=== PATIENT | female | born 1975 | race Two or more races ===

== ENCOUNTER 2020-09-02 13:07 | Outpatient (REF) | payer OTHER, SELFPAY | END 2020-09-02 13:08 | disposition home or self-care (01) | LOC: HO.LAB 13:07 | PROVIDERS: Visit Provider Internal Medicine | DX: Z20.822 Contact with and (suspected) exposure to COVID-19 (principal) | CPT/HCPCS: 36415; C9803; U0003; U0005 ==

== ENCOUNTER 2020-10-01 13:18 | Outpatient (REF) | payer OTHER, SELFPAY | END 2020-10-01 13:19 | disposition home or self-care (01) | LOC: HO.LAB 13:18 | PROVIDERS: Visit Provider Internal Medicine | DX: Z20.822 Contact with and (suspected) exposure to COVID-19 (principal) | CPT/HCPCS: 36415; C9803; U0003; U0005 ==

== ENCOUNTER 2020-11-03 14:41 | Outpatient (REF) | payer OTHER, SELFPAY ==
[2020-11-03 15:00] LABS: COVID-19 Test Negative (Negative)
== END 2020-11-03 14:42 | disposition home or self-care (01) ==
LOC: HO.LAB 14:41
PROVIDERS: Visit Provider Internal Medicine
DX: Z20.822 Contact with and (suspected) exposure to COVID-19 (principal)
CPT/HCPCS: 36415; 87635; C9803

== ENCOUNTER 2020-11-18 14:53 | Outpatient (REF) | payer OTHER, SELFPAY | END 2020-11-18 14:54 | disposition home or self-care (01) | LOC: HO.LAB 14:53 | PROVIDERS: Visit Provider Internal Medicine | DX: Z20.822 Contact with and (suspected) exposure to COVID-19 (principal) | CPT/HCPCS: C9803; U0003; U0005 ==

== ENCOUNTER 2022-07-11 16:25 | Emergency (ER) | payer MEDICAID, SELFPAY ==
--- NOTE | 2022-07-11 16:38 | ED.ABDPAIN ---
HPI - Abdominal Pain General Chief Complaint: Abdominal Pain Stated Complaint: abd pain,rectal bleeding Related Data Allergies Allergy/AdvReac Type Severity Reaction Status Date / Time No Known Allergies Allergy Unverified 04/09/20 19:45 [facility] Social History Social History Advance Directives: No Advance Directives Information Provided: No Physical Exam ED Vital Signs: Vital Signs - 24 hr 07/11/22 16:41 Temperature 98.2 F Pulse Rate 93 Respiratory Rate 18 Blood Pressure 127/83 Pulse Oximetry 98 Oxygen Delivery Method Room Air BMI result Body Mass Index 27.0 Course Course Course Narrative: RME: Patient is a 56-year-old female with no reported past medical history who presents to emergency department for diffuse abdominal pain and rectal bleeding, described as bright red and a large amount that she noticed after having a bowel movement. Denies fevers, chills, dizziness, chest pain, shortness of breath, dysuria, urinary frequency, nausea, vomiting. She is overall well-appearing, no apparent distress. With mild tenderness throughout upon palpation, does not appear consistent with acute abdomen. Plan: Labs, urinalysis Medical Decision Making Lab Data Result Diagrams: 07/11/22 22:02 07/11/22 22:02 Labs: Lab Results 07/11/22 07/11/22 07/11/22 Range/Units 17:20 22:02 22:02 WBC 12.0 H (4.8-10.8) X10*3/uL RBC 4.67 (4.20-5.50) X10*6/uL Hgb 13.1 (12.0-16.0) g/dl Hct 40.1 (37.0-47.0) % MCV 85.9 (80.0-98.0) fL MCH 28.1 (27.0-33.0) pg MCHC 32.7 (31.0-35.0) g/dl RDW 12.8 (11.0-16.0) % Plt Count 286 (160-400) X10*3/uL MPV 10.5 (9.4-12.3) fL Immature Gran % (Auto) 0.2 (0.0-0.4) % Neut % (Auto) 82.4 H (45-73) % Lymph % (Auto) 12.0 L (20-40) % [facility] % (Auto) 5.1 (2-11) % Eos % (Auto) 0.1 (0-4) % Baso % (Auto) 0.2 (0-2) % Lymph # (Auto) 1.4 (1.2-4.9) X10*3/uL [facility] # (Auto) 0.6 (0.1-1.2) X10*3/uL Eos # (Auto) 0.0 (0.0-0.4) X10*3/uL Baso # (Auto) 0.0 (0.0-0.2) X10*3/uL Abs Immat Gran (auto) 0.03 (0.00-0.03) X10*3/uL Absolute Neuts (auto) 9.9 H (2.0-8.3) x10*3/uL Absolute Nucleated RBC 0.000 (0.0-0.012) X10*3/uL Nucleated RBC % (auto) 0.0 (0.0-0.2) /100WBC Sodium 141 (135-145) mmol/L Potassium 3.8 (3.3-5.1) mmol/L Chloride 105 (96-108) mmol/L Carbon Dioxide 27 (22-29) mmol/L Anion Gap 13 (12-20) BUN 12 (9-16) mg/dL Creatinine 0.74 (0.5-1.4) mg/dL Estim Creat Clear Calc 73.2 Estimated GFR > 60 Random Glucose 146 H (60-115) mg/dL Calcium 8.8 (8.4-10.2) mg/dL Total Bilirubin 0.2 (0.0-1.0) mg/dL AST 17 (5-31) U/L ALT 11 (0-31) U/L Alkaline Phosphatase 60 (39-117) U/L Total Protein 7.2 (6.5-8.0) g/dL Albumin 4.1 (3.5-5.0) g/dL Lipase 23 (8-78) U/L Urine Color Yellow Urine Appearance Clear Urine pH 5.0 (5.0-9.0) Ur Specific Butner 1.020 (1.005-1.025) Urine Protein Negative (Neg-Trace) mg/dL Urine Glucose (UA) Negative (Negative) mg/dL Urine Ketones Negative (Negative) mg/dL Urine Blood Moderate (2+) H (Negative) Urine Nitrite Negative (Negative) Ur Leukocyte Esterase Negative (Negative) Urine RBC 3-5 H (0-2) /HPF Urine WBC 0-5 (0-5) /HPF Ur Squamous Epith Cells 3-5 (0-2) /HPF Urine Bacteria None Seen (None Seen) Hyaline Casts 0-2 (0-2) /LPF Discharge Plan Discharge Clinical Impression: Abdominal pain Patient Disposition: Elopement Discharge Date/Time: 07/11/22 22:12
[2022-07-11 16:41] VITALS: BP 127/83; PULSE 93; RESP 18; TEMP 36.8; O2SAT 98; BMI 27.0
[2022-07-11 17:32] LABS: Appearance Urine Clear; Color Urine Yellow; Glucose Urine UA Negative (Negative); Leukocyte Esterase Urine Negative (Negative); Nitrite Urine Negative (Negative); UMIC TRIGGER UACC YES; Urine Blood Moderate (2+) (Negative); Urine Ketones Negative (Negative); Urine Protein Negative (Neg-Trace)
[2022-07-11 17:42] LABS: Bacteria Urine None Seen (None Seen); Hyaline Casts Urine 0-2 /LPF (0-2); WBC Urine 0-5 /HPF (0-5)
[2022-07-11 22:09] LABS: Basophils Percent Auto 0.2 % (0-2); Eosinophils Percent Auto 0.1 % (0-4); Hematocrit 40.1 % (37.0-47.0); Hemoglobin 13.1 g/dl (12.0-16.0); Imm Gran Abs Auto 0.03 X10*3/uL (0.00-0.03); Imm Gran Pct Auto 0.2 % (0.0-0.4); Lymphocytes Absolute Auto 1.4 X10*3/uL (1.2-4.9); Mean Corpuscular HGB Conc 32.7 g/dl (31.0-35.0); Mean Corpuscular Hemoglobin 28.1 pg (27.0-33.0); Mean Corpuscular Volume 85.9 fL (80.0-98.0); Mean Platelet Volume 10.5 fL (9.4-12.3); Monocytes Absolute Auto 0.6 X10*3/uL (0.1-1.2); Monocytes Percent Auto 5.1 % (2-11); Neutrophils Absolute Auto 9.9 x10*3/uL (2.0-8.3); Neutrophils Percent Auto 82.4 % (45-73); Platelet Count 286 X10*3/uL (160-400); Red Blood Count 4.67 X10*6/uL (4.20-5.50); Red Cell Distribution Width 12.8 % (11.0-16.0)
[2022-07-11 22:10] LABS: MANUAL DIFF FLAG NO
[2022-07-11 22:41] LABS: Alanine Aminotransferase 11 U/L (0-31); Albumin Level 4.1 g/dL (3.5-5.0); Alkaline Phosphatase 60 U/L (39-117); Anion Gap 13 (12-20); Aspartate Amino Transferase 17 U/L (5-31); Bilirubin Total 0.2 mg/dL (0.0-1.0); Blood Urea Nitrogen 12 mg/dL (9-16); Calcium 8.8 mg/dL (8.4-10.2); Carbon Dioxide 27 mmol/L (22-29); Chloride 105 mmol/L (96-108); Creatinine Clr Calc Pharmacy 73.2; Estimated Glomerular Filt Rate > 60; Glucose Random 146 mg/dL (60-115); Lipase 23 U/L (8-78); Potassium 3.8 mmol/L (3.3-5.1); Sodium 141 mmol/L (135-145); Total Protein 7.2 g/dL (6.5-8.0)
== END 2022-07-11 22:12 | disposition left against medical advice (07) ==
LOC: HO.ED 22:11
PROVIDERS: Nurse Practitioner Family; Emergency Provider Internal Medicine
DX: R10.13 Epigastric pain (principal); Z79.899 Other long term (current) drug therapy
CPT/HCPCS: 36415; 80053; 81001; 83690; 85025; 99281; 99283

== ENCOUNTER 2023-07-26 11:13 | Outpatient (REF) | payer MEDICAID, SELFPAY ==
[2023-07-26 13:54] LABS: Alanine Aminotransferase 11 U/L (0-31); Alkaline Phosphatase 74 U/L (39-117); Anion Gap 9 (12-20); Aspartate Amino Transferase 17 U/L (5-31); Bilirubin Total 0.1 mg/dL (0.0-1.0); Blood Urea Nitrogen 16 mg/dL (9-16); Calcium 9.9 mg/dL (8.4-10.2); Carbon Dioxide 28 mmol/L (22-29); Chloride 112 mmol/L (96-108); Cholesterol 187 mg/dL (<200); Estimated Glomerular Filt Rate > 60; Glucose Random 74 mg/dL (60-115); HDL Cholesterol 53 mg/dL (>40); LDL Cholesterol Calculated 98 mg/dL (<100); Potassium 4.3 mmol/L (3.3-5.1); Sodium 145 mmol/L (135-145); Total Protein 7.6 g/dL (6.5-8.0); Triglycerides 182 mg/dL (<150)
[2023-07-27 04:53] LABS: HBS Num1 0.15 mIU/mL (0-7.99); HBc Num1 0.06 S/CO (0.00-0.79); HBsAGNum1 0.22 S/CO (0.00-0.99); HIV AB/AG Nonreactive (Nonreactive); HIV Num 1 0.06 S/CO (0.00-0.99); Hepatitis B Core Antibody Nonreactive (Nonreactive); Hepatitis B Surface Antigen Negative (Negative); ~HepC Num1 0.08 S/CO (0.00-0.79); ~Hepatitis B Surface Antibody NONREACTIVE (Nonreactive); ~Hepatitis C Antibody Nonreactive (Nonreactive)
== END 2023-07-26 11:14 | disposition home or self-care (01) ==
LOC: HO.HHCL 11:13
PROVIDERS: Visit Provider Nurse Practitioner
DX: Z00.00 Encounter for general adult medical examination without abnormal findings (principal); E66.3 Overweight
CPT/HCPCS: 36415; 80053; 80061; 86704; 86706; 86803; 87340; 87389

== ENCOUNTER → 2023-07-26 15:30 | Outpatient (BNV) | payer MEDICAID, SELFPAY | PROVIDERS: PCP Nurse Practitioner; Visit Provider Radiology Diagnostic Radiology | DX: Z12.31 Encounter for screening mammogram for malignant neoplasm of breast (principal) | CPT/HCPCS: 77063; 77067 ==

== ENCOUNTER 2023-07-26 15:36 | Outpatient (REF) | payer MEDICAID, SELFPAY ==
--- NOTE | ~2023-07-26 | MM_ITS ---
EXAMINATION: MM SCREENING DIGITAL BREAST TOMOSYNTHESIS, BILATERAL CLINICAL INFORMATION: Screening. Asymptomatic. COMPARISON: Mammography: There are no prior mammograms available for comparison. TECHNIQUE: Digital breast tomosynthesis is performed in both the craniocaudal and mediolateral oblique views along with computer-aided detection (CAD). Synthesized 2D images are generated from the tomosynthesis. FINDINGS: There are scattered areas of fibroglandular density (ACR BI-RADS breast composition Category b). There is an anteriorly located, left focal asymmetry just inferomedial to the posterior nipple line. Further mammographic and targeted sonographic evaluation of this finding is advised. Grouped calcifications of the upper outer quadrants of each breast warrant additional mammographic imaging with magnification. MM/MM tomosynthesis screening BI IMPRESSION: Focal asymmetry of the left breast warrants additional mammographic and targeted sonographic evaluation. Bilateral upper quadrant calcifications warrant additional mammographic imaging magnification. ASSESSMENT: BI-RADS BI-RADS 0 - Incomplete: Needs additional Imaging. RECOMMENDATION: 1. Additional views of both breasts. 2. Targeted ultrasound of the left breast. 3. Radiology department staff will contact the patient for additional imaging. Additional Imaging required This examination should not preclude the clinical evaluation of a suspicious palpable abnormality. This patient's information was entered into a reminder system with a target due date for their next mammogram.
== END 2023-07-26 15:37 | disposition home or self-care (01) ==
LOC: HO.MAMMO 15:36
PROVIDERS: PCP Nurse Practitioner; Visit Provider Nurse Practitioner
DX: Z12.31 Encounter for screening mammogram for malignant neoplasm of breast (principal)
CPT/HCPCS: 36415; 77063; 77067; 80053; 80061; 86704; 86706; 86803; 87340; 87389

== ENCOUNTER 2023-07-28 13:12 | Outpatient (REF) | payer MEDICAID, SELFPAY | END 2023-07-28 13:13 | disposition home or self-care (01) | LOC: HO.HHCLNP 13:12 | PROVIDERS: Visit Provider Nurse Practitioner | DX: K21.9 Gastro-esophageal reflux disease without esophagitis (principal) | CPT/HCPCS: 87338 ==

== ENCOUNTER 2023-08-28 14:51 | Outpatient (REF) | payer MEDICAID, SELFPAY ==
--- NOTE | ~2023-08-28 | MM_ITS ---
EXAMINATION: MM DIAGNOSTIC DIGITAL BREAST TOMOSYNTHESIS, BILATERAL US BREAST LIMITED, BILATERAL MAMMOGRAPHY: CLINICAL INFORMATION: Follow-up from baseline mammography 07/26/2023. Evaluate irregular mass anterior left breast 6:00 axis seen on screening exam. Evaluate calcifications seen bilaterally upper outer breasts on same screening exam. Evaluate bilateral parenchymal asymmetries upper outer quadrants both breasts. COMPARISON: Mammography: 07/26/2023 baseline exam. TECHNIQUE: Digital breast tomosynthesis is performed in the following views: 3-D bilateral full-field ML views, 2-D right spot magnification CC and ML view, and left 2-D spot magnification CC view and ML view x2. 3-D spot compression left CC x2, and left MLO x1. Exam was followed by bilateral breast ultrasound. FINDINGS: There are scattered areas of fibroglandular density (ACR BI-RADS breast composition Category b). Breast density is bordering on category C. LEFT BREAST: There is a spiculated irregular mass with a bilobed appearance in the 6:00 axis of the retroareolar left breast, measuring approximately 1.4 cm by mammography. This is highly suspicious for malignancy. Immediately posterior to this mass there are linearly oriented mildly pleomorphic calcifications, spanning approximately 2.6 cm posterior, likely malignant within a dilated tortuous duct. There are calcifications throughout the upper outer left breast, somewhat symmetric to the contralateral side, with some degree of grouping in the posterior one third of the upper outer left breast. These have a somewhat benign appearance, being rounded and largely punctate, although given the suspicious mass in the 6:00 periareolar region, stereotactic sampling of the most suspicious group is recommended. There is no axillary lymphadenopathy. There is mild skin thickening/minimal retraction of the inferior left areola. RIGHT BREAST: There is asymmetrically prominent fibrocystic dense tissue in the upper outer right breast, with associated parenchymal scattered calcifications which have a similar appearance to the contralateral side in this region. There is no suspicious grouping, pleomorphism, casting, or branching forms, and these are most likely benign calcifications related to sclerosing adenosis. No definable mass lesion, parenchymal distortion, or other right breast abnormality. There is no right axillary or skin abnormality. Ultimately, evaluation of both breasts with MRI should be considered. ULTRASOUND: CLINICAL INFORMATION: Irregular mass left breast anterior 6:00 axis. Bilateral parenchymal asymmetries in the upper outer regions of both breasts. COMPARISON: No prior. TECHNIQUE: Targeted sonographic evaluation was performed using a high frequency linear transducer. Attention of both breasts was given to the upper outer quadrant asymmetries, as well as the left breast 6:00 spiculated bilobed mass. Selected archived documentation. FINDINGS: LEFT BREAST: -In the 6:00 axis of the left breast, 1 cm from the nipple, there is an irregular hypoechoic shadowing mass with robust internal vascularity, bilobed shape, and angulated margins. This is surrounded by some hyperechoic fat. The inferior lobe measures approximately 0.7 x 0.7 x 0.5 cm, and the superior lobe measures approximately 0.8 x 0.7 x 1.1 cm. This is a highly suspicious, BI-RADS 5 lesion. There appear to be linear hypoechoic structures both anterior and posterior to the mass suggesting ductal involvement. There are calcifications arranged linearly posterior to this mass on mammography, presumably malignant. There is a focal region of localized skin thickening anteromedial to the mass. Ultrasound guided biopsy of this mass is recommended. No abnormal left axillary lymph nodes are identified. Dense fibrocystic tissue is noted in the upper outer left breast without additional mass. RIGHT BREAST: -The upper outer quadrant of the right breast was scanned. No discrete mass, abnormal shadowing, cystic abnormality, or distortion is appreciated. The parenchymal asymmetry in the upper outer quadrant of the right breast has the appearance of dense fibrocystic tissue without mass or other abnormality. No axillary abnormality. MM/MM tomosynthesis added view BI IMPRESSION: 1. Bilobed hypoechoic irregular vascular mass in the 6:00 axis of the periareolar left breast measuring up to 2.6 cm on mammography it is highly suspicious and ultrasound-guided biopsy is recommended. 2. Several groups of calcifications are present in the upper outer left breast posterior one third, of which the most suspicious group should be biopsied via stereotactic means. Recommend stereotactic biopsy left breast. 3. Parenchymal asymmetries in both breasts upper-outer quadrants appear to represent dense fibrocystic tissue on ultrasound without suspicious mass or other suspicious abnormality. 4. Diffuse scattered rounded calcifications in the upper outer quadrants of both breasts are also present, probably benign related to sclerosing adenosis or similar etiology. Ultimately, bilateral breast MRI should be considered for staging purposes. 5. No abnormal lymphadenopathy in the left axilla. OVERALL ASSESSMENT: Mammography: BI-RADS 5 - Highly suggestive of malignancy Ultrasound: BI-RADS 5 - Highly suggestive of malignancy RECOMMENDATION: Biopsy recommended This patient's information was entered into a reminder system with a target due date for their next mammogram.
== END 2023-08-28 14:52 | disposition home or self-care (01) ==
LOC: HO.MAMMO 14:51
PROVIDERS: PCP Nurse Practitioner; Visit Provider Nurse Practitioner
DX: R92.1 Mammographic calcification found on diagnostic imaging of breast (principal); N64.89 Other specified disorders of breast
CPT/HCPCS: 76642; 77062; 77066

== ENCOUNTER → 2023-08-28 15:00 | Outpatient (BNV) | payer MEDICAID, SELFPAY | PROVIDERS: PCP Nurse Practitioner; Visit Provider Radiology Diagnostic Radiology | DX: R92.8 Other abnormal and inconclusive findings on diagnostic imaging of breast (principal) | CPT/HCPCS: 76642; 77062; 77066 ==

== ENCOUNTER 2023-08-31 08:05 | Outpatient (AMB) | payer MEDICAID, SELFPAY ==
--- NOTE | 2023-08-31 08:27 | MHC.OFFVIS ---
Intake Vital Signs 08/31/23 08:32 Height 5 ft 1 in Weight 142 lb BMI 26.8 BP 100/60 Blood Pressure Location Rt brachial Position Sitting Pulse 64 Intake Visit Reasons: 6 O'clock mass Lt breast Intake Note: This patient presents for an assessment for Ultrasound guided biopsy for left breast 6 o'clock mass. Patient c/o; reports no change in size or shape of breast, reports no discharge from nipple, reports no breast pain or tenderness. Psychologist Military Personnel Required: Yes Psychologist Military Personnel Language: Motion Picture Film Examiner Name: Rivera Information Interpreted: non-clinical & clinical Accompanied by: Self / Same As Patient Allergies No Known Allergies Allergy (Unverified 08/31/23 08:28) Medication List - Last Reconciled 08/31/23 by Sumit Roberts MD escitalopram oxalate 20 mg PO DAILY famotidine 20 mg PO DAILY hydroxyzine HCl 50 mg PO QID PRN HPI 6 O'clock mass Lt breast HPI Details 57-year-old female referred for an abnormal mammogram. She had a mammogram for screening last month and this showed an irregular left breast mass. She was therefore brought in for diagnostic mammogram and ultrasound This showed a bilobed hypoechoic irregular mass at the 6 o'clock position of the breast measuring 2.6 cm on mammogram. An ultrasound-guided biopsy had been recommended for this There is a group of calcifications in the upper outer left breast and a stereotactic biopsy was recommended for this as well. A bilateral breast mass MRI was also reminded because of diffuse scattered rounded calcifications both breasts. She says that she may have felt a little lump on the left breast in the past She says her menarche was at age of 15. She was never . She had menopause at age of 48. She says she had a maternal aunt who had breast cancer in her 60s. She smokes 1-2 cigarettes a day. [facility] Medical History (Updated 08/31/23 @ 09:09 by Sumit Roberts MD) Left breast mass Surgical History History of removal of ovarian cyst Family History Maternal Aunt Breast cancer Maternal Uncle Lung cancer Female Reproductive History Menstrual Total pregnancies: 0 Review of Systems Const Denies chills and Denies fever(s) Card Denies chest pain, Denies dyspnea and Denies dyspnea on exertion Resp Denies cough, Denies dyspnea and Denies dyspnea on exertion GI Denies hematochezia and Denies change in bowel habits Denies hematuria Musc Denies back pain and Denies limited range of motion Neuro Denies focal weakness and Denies convulsions Psych Denies depression and Denies mood swings Physical Exam Vital Signs: Last Vital Signs Pulse 64 08/31/23 08:32 BP 100/60 08/31/23 08:32 BMI result Body Mass Index 26.8 Const General: comfortable and no acute distress Orientation/consciousness: patient oriented x3 Neck Neck: Yes no lymphadenopathy Chest Other: No palpable breast masses, no nipple or skin changes, no axillary lymphadenopathy. Resp Auscultation: clear to auscultation bilaterally Cardio Rhythm: regular rhythm GI Palpation (GI): Soft to palpation, nontender and no guarding Neuro General: patient oriented x3 Assessment & Plan Assessment & Plan (1) Left breast mass: Code(s): N63.20 - Unspecified lump in the left breast, unspecified quadrant Plan: Her mammogram and ultrasound shows mass at this is o'clock position of the left breast, and a group of calcifications in the upper outer quadrant of the left breast. An ultrasound-guided biopsy has been recommended for the mass at this position and a stereotactic biopsy was recommended for the calcifications on the left upper outer quadrant. I have also ordered for a breast MRI because of diffuse scattered calcifications on both breasts I will see her in the office to discuss her biopsy results next week. She understands the plan well. Orders: Orders MM stereotactic biopsy LT Today N63.20 - Unspecified lump in the left breast, unspecified quadrant MR breast BI wo con Today N63.20 - Unspecified lump in the left breast, unspecified quadrant US breast ndl core biopsy LT 08/30/23 N63.20 - Unspecified lump in the left breast, unspecified quadrant Coding Level of Care Code New Pt Level 3 (45341) Diagnoses Left breast mass N63.20
[2023-08-31 08:32] VITALS: BP 100/60; PULSE 64; BMI 26.8
== END 2023-08-31 09:05 | disposition home or self-care (01) ==
PROVIDERS: PCP Nurse Practitioner; Visit Provider Surgery
DX: N63.20 Unspecified lump in the left breast, unspecified quadrant (principal)
CPT/HCPCS: 99203

== ENCOUNTER → 2023-08-31 08:05 | Outpatient (BNVA) | payer MEDICAID, SELFPAY | PROVIDERS: PCP Nurse Practitioner; Visit Provider Surgery | DX: N63.25 Unspecified lump in the left breast, overlapping quadrants (principal) | CPT/HCPCS: 99202 ==

== ENCOUNTER → 2023-09-01 08:00 | Outpatient (BNV) | payer MEDICAID, SELFPAY | PROVIDERS: Absent Provider Family Medicine; PCP Nurse Practitioner; Visit Provider Radiology Diagnostic Radiology | DX: N63.25 Unspecified lump in the left breast, overlapping quadrants (principal) | CPT/HCPCS: 19083; 77065 ==

== ENCOUNTER 2023-09-01 08:02 | Outpatient (REF) | payer MEDICAID, SELFPAY ==
--- NOTE | ~2023-09-01 | MM_ITS ---
PROCEDURE: US GUIDED BREAST BIOPSY, LEFT CLINICAL INFORMATION: Bilobed left breast anterior mass, suspicious, 6:00 axis, 1 cm from the nipple, recommended for biopsy.The inferior lobe measures approximately 0.7 x 0.7 x 0.5 cm, and the superior lobe measures approximately 0.8 x 0.7 x 1.1 cm. Patient also has grouped calcifications in the upper outer posterior left breast and right breast and is scheduled for MRI on September 07. COMPARISON: 08/28/2023. PROCEDURAL DETAILS: The details of the procedure, as well as the risks, benefits, and alternatives to the procedure were explained to the patient in detail and all of her questions were answered, after which written informed consent was obtained. Site and side were confirmed. Prior to the procedure, sonography revealed a somewhat angularly-shaped bilobed hypoechoic mass 6:00 axis I cm from the nipple left breast measuring up to 1.4 cm by mammography, suspicious. A time-out was performed, the lesion intended for biopsy was targeted, and the skin of the overlying left breast was then marked, prepped and draped in the usual sterile fashion. Using sonographic guidance, sterile technique, and 1% lidocaine without epinephrine for local anesthesia, multiple core biopsies were obtained through the targeted area with a 14G spring loaded [employer] Efficientera core biopsy device. There was real-time confirmation of appropriate needle passage. Sampling was documented. At the completion of tissue sampling, a single open coil-shaped metallic clip was deposited at the biopsy site. There was no evidence of immediate complication. SPECIMEN: 3 well formed core samples were obtained. DIGITAL POST-PROCEDURE MAMMOGRAPHY: Breast density: The tissue contains scattered areas of fibroglandular density. BI-RADS version 5, category B. There are no new mammographic findings demonstrated. The postprocedure 2-view direct digital mammogram reveals satisfactory and accurate positioning of the biopsy clip. No hematoma present. The patient tolerated the procedure well and, after assuring adequate hemostasis, was discharged in good condition after reviewing postbiopsy breast care instructions. Final pathology results are pending. MM/MM tomosynthesis diagnostic LT IMPRESSION: 1. No immediate complication from ultrasound-guided percutaneous biopsy left breast bilobed anterior suspicious mass. 2. Ultrasound was used to localize and guide marker clip placement. 3. The 2-view direct digital postprocedure mammogram reveals satisfactory and accurate positioning of the biopsy clip. No hematoma or complication. 4. Final pathology results are pending. A separate report with final recommendations will be issued once these results are made available.
[2023-09-01] MEDS: Sodium Bicarbonate 8.4% 50 MEQ/50 ML VIAL SUBCUT (09:32)
[2023-09-01] MEDS: Lidocaine HCl 1 % 20 ML VIAL 9 ML SUBCUT (09:33)
== END 2023-09-01 08:03 | disposition home or self-care (01) ==
LOC: HO.MAMMO 08:02
PROVIDERS: Absent Provider Family Medicine; PCP Nurse Practitioner; Visit Provider Surgery
DX: C50.812 Malignant neoplasm of overlapping sites of left female breast (principal); Z17.0 Estrogen receptor positive status [ER+]
CPT/HCPCS: 19083; 77061; 77065; 88305; 88342; 88360; A4648; C1894

== ENCOUNTER 2023-09-07 13:41 | Outpatient (AMB) | payer MEDICAID, SELFPAY ==
--- NOTE | 2023-09-07 13:51 | A.OFFVIS_ITS ---
Intake Intake Visit Reasons: breast biopsy results Intake Note: This patient presents for an assessment for breast biopsy results. Patient c/o; reports no complaints at this time. Supervisor Rubber Covering Required: Yes Supervisor Rubber Covering Language: Restaurant Lead Name: Rivera Information Interpreted: non-clinical & clinical Accompanied by: Self / Same As Patient Allergies No Known Allergies Allergy (Unverified 09/07/23 13:56) Medication List - Last Reconciled 09/07/23 by Sumit Roberts MD escitalopram oxalate 20 mg PO DAILY famotidine 20 mg PO DAILY hydroxyzine HCl 50 mg PO QID PRN HPI breast biopsy results HPI Details 57-year-old femal mary here to discuss results of left br east biopsy. She h ad a mammogram for screening last mo nth and this showe d an irregular lef t breast mass. Ad hernandez was therefore br ought in for diagn ostic mammogram an d ultrasound. Th is showed a bilobe d hypoechoic irreg ular mass at the 6 o'clock position of the breast nuno uring 2.6 cm on ma mmogram. An ultra sound-guided biops y had been recomme nded for this and she had this done last 09/01/2023. Ad hernandez tolerated this w ell. There is a group of calcific ations in the uppe r outer left breas t and a stereotact ic biopsy was chelsey mmended for this a s well. A bilat eral breast mass M RI was also recomm ended because of d iffuse scattered r ounded calcificati ons on both breast s. She says that she may have felt a little lump on t he left breast in the past. She s ays her menarche w as at age of 15. She was never preg nant. She had men opause at age of [age]. She says she had a maternal au nt who had breast cancer in her 60s. She smokes 1-2 cigarettes a day. [facility] Medical History Invasive ductal carcinoma of breast Left breast mass Surgical History History of removal of ovarian cyst Family History Maternal Aunt Breast cancer Maternal Uncle Lung cancer Review of Systems Const Denies chills and Denies fever(s) Card Denies chest pain, Denies dyspnea and Denies dyspnea on exertion Resp Denies cough, Denies dyspnea and Denies dyspnea on exertion GI Denies hematochezia and Denies change in bowel habits Denies hematuria Musc Denies back pain and Denies limited range of motion Neuro Denies focal weakness and Denies convulsions Psych Denies depression and Denies mood swings Physical Exam Const General: comfortable and no acute distress Orientation/consciousness: patient oriented x3 Neck Neck: Yes no lymphadenopathy Chest Other: No palpable masses, no hematoma on the biopsy site on the left breast, no axillary lymphadenopathy Resp Auscultation: clear to auscultation bilaterally Cardio Rhythm: regular rhythm GI Palpation (GI): Soft to palpation, nontender and no guarding Neuro General: patient oriented x3 Assessment & Plan Assessment & Plan (1) Invasive ductal carcinoma of breast: Code(s): C50.919 - Malignant neoplasm of unspecified site of unspecified female breast Plan: Unfortunately, ultrasound biopsy of this bilobed mass on the he has a lot area of the left breast shows an invasive ductal carcinoma, ER KS positive, HER2 negative. I therefore explained to her options at this point. I told her about total mastectomy with sentinel node biopsy. I also explained to her the option of lumpectomy with Hologic localization, and sentinel biopsy. I discussed with her the techniques of each procedure. I reviewed the risks, benefits, and alternatives of each option She wants to proceed with lumpectomy with sentinel node biopsy. She understands that she will need radiation to the breast to complete treatment. She will have the Hologic RFID clip placed I explained to her what to expect postoperatively She is still waiting for her MRI of the breast in view of diffuse rounded calcifications I have arranged for her to be seen by Oncology as well. Orders: Orders MR breast BI wo/w con 09/07/23 C50.919 - Malignant neoplasm of unspecified site of unspecified female breast MM surgical specimen 09/07/23 C50.919 - Malignant neoplasm of unspecified site of unspecified female breast NM sentinel node w imaging 09/07/23 C50.919 - Malignant neoplasm of unspecified site of unspecified female breast Coding Level of Care Code Est Pt Level 4 (72634) Diagnoses Invasive ductal carcinoma of breast C50.919
== END 2023-09-07 14:41 | disposition home or self-care (01) ==
PROVIDERS: PCP Nurse Practitioner; Visit Provider Surgery
DX: C50.919 Malignant neoplasm of unspecified site of unspecified female breast (principal)
CPT/HCPCS: 99214

== ENCOUNTER → 2023-09-07 13:41 | Outpatient (BNVA) | payer MEDICAID, SELFPAY | PROVIDERS: PCP Nurse Practitioner; Visit Provider Surgery | DX: C50.812 Malignant neoplasm of overlapping sites of left female breast (principal); Z17.0 Estrogen receptor positive status [ER+] | CPT/HCPCS: 99212 ==

== ENCOUNTER → 2023-09-15 14:00 | Outpatient (BNV) | payer MEDICAID, SELFPAY | PROVIDERS: PCP Nurse Practitioner; Referring Provider Surgery; Visit Provider Internal Medicine Medical Oncology | DX: C50.912 Malignant neoplasm of unspecified site of left female breast (principal) | CPT/HCPCS: 99204; 99213 ==

== ENCOUNTER 2023-09-25 15:01 | Outpatient (REF) | payer MEDICAID, SELFPAY ==
--- NOTE | ~2023-09-25 | MR_ITS ---
EXAMINATION: MR BREAST WITHOUT AND WITH CONTRAST, BILATERAL CLINICAL INFORMATION: 57-year-old female with new diagnosis of invasive ductal carcinoma grade 2 with known residual calcifications on mammography. COMPARISON: Correlation to mammograms of 07/26/2023 and ultrasound of 08/28/2023. TECHNIQUE: Imaging was performed with a dedicated breast coil. Prior to the administration of contrast, bilateral axial T1 and bilateral axial T2 weighted sequences were obtained. After the uneventful administration of?6.5 mL of Gadavist, dynamic contrast-enhanced VIBRANT series through the breasts in the axial plane were performed. Subtracted images were performed and reviewed. A delayed sagittal sequence through both breasts was acquired. Additionally, CAD post-processing, including maximum intensity projections, 3-D reconstructions and kinetic analysis, were performed an independent workstation and reviewed by the interpreting radiologist is a portion of this exam. FINDINGS: The patient's fibroglandular tissue demonstrates mild background enhancement. LEFT BREAST: There is an irregularly-shaped enhancing mass at 6-7 o'clock, 2 cm from the nipple, measuring 1.6 cm craniocaudad dimension by 2.1 cm AP dimension by 1.1 cm transverse dimension. This demonstrates mixed rapid wash-in washout plateau and progressive kinetics and is consistent with known biopsied invasive ductal carcinoma (MR sequence #101, image 83/110). There is linear nonmass enhancement extending posteriorly from the incident tumor measuring 2 cm in AP length; this is suspicious for additional in situ cancer (MR sequence #101 image 84/110). In addition, there is linear nonmass enhancement anteriorly from the tumor to the nipple areolar complex, measuring 1.3 cm. This is also suspicious for additional ductal carcinoma in situ (MR sequence #101 image 85/110). The total length of the invasive and probable noninvasive component is 5.8 cm. There are no other areas of mass or nonmass enhancements. There are no additional findings on T2-weighted imaging or kinetic curve analysis. RIGHT BREAST: There is linear nonmass enhancement at 9 o'clock, 8.4 cm from the nipple, measuring 1.5 cm. This demonstrates mixed plateau and progressive kinetics and is considered suspicious (MR sequence #101, image 68/110). There are a few other scattered foci of enhancement demonstrating subthreshold and progressive kinetics. There are no other suspicious findings. There are no additional findings on T2-weighted imaging or kinetic curve analysis. There is no suspicious internal mammary chain or axillary adenopathy. Limited views of the chest and abdomen are unremarkable. MR/MR breast BI wo/w con IMPRESSION: No MR specific evidence of malignancy. ASSESSMENT: LEFT BREAST: BI-RADS 6 - Known malignancy. RIGHT BREAST: BI-RADS 4 - Suspicious, biopsy is recommended. RECOMMENDATIONS: If breasts-conserving therapy is being considered, then bracketing of the anterior and posterior components of the lesion in the left breast is needed. An RF tag is already been placed at the anterior aspect of the breast. The posterior portion of the lesion can be localized under MRI guidance. MRI guided biopsy for the nonmass enhancement in the right breast. The findings were discussed with Rick ROBLES at 9:55 AM on 10/02/2019
[2023-09-25] MEDS: gadobutroL 7.5 ML VIAL IVPUSH (16:07)
== END 2023-09-25 15:02 | disposition home or self-care (01) ==
LOC: HO.MRI 15:01
PROVIDERS: PCP Nurse Practitioner; Visit Provider Surgery
DX: R92.1 Mammographic calcification found on diagnostic imaging of breast (principal)
CPT/HCPCS: 77049; A9585

== ENCOUNTER 2023-09-27 07:32 | Outpatient (REF) | payer MEDICAID, SELFPAY ==
--- NOTE | ~2023-09-27 | MM_ITS ---
EXAMINATION: MM MAMMOGRAM GUIDED RFID LOCALIZATION BREAST, LEFT CLINICAL INFORMATION: Left breast IDC at 6:00 axis anterior one third. COMPARISON: Ultrasound-guided biopsy of left breast 09/01/2023. TECHNIQUE NEEDLE LOC: Proper informed consent is obtained from the patient after discussion of the procedure, potential risks and complications, and alternatives including declining the procedure today. Patient was given an opportunity for questions. The patient appeared to understand. The patient consented to the procedure and signed the consent form. GUIDANCE: Digital mammography. APPROACH: Medial Lateral. TARGET: Bilobed 6:00 mass with open coil biopsy clip. ANESTHESIA: carbonated lidocaine 1%: 1 mL. LOCALIZATION SYSTEM: -[employer] LOCallizer Wire-Free Guidance System with 12g needle applicator. -Length: 7 cm. -RADIOFREQUENCY TAG: ID # [id number] DERMATOTOMY: Single skin-leonarda dermatotomy performed. RF Tag ID confirmed with LOCalizer Guidance System prior to placement. The skin is prepped and local anesthesia administered. The needle is positioned and RFID tag deployed. Final images demonstrate the LOCalizer RF tag to reside immediately anteriorly abutting the 6:00 mass and open coil biopsy clip. The patient tolerated the procedure well and had no immediate complications. Dressing placed and home instructions reviewed. MM/MM needle loc LT IMPRESSION: -Status post left breast RFID localization. -Final 2 images are labeled appropriately.
--- NOTE | ~2023-09-27 | MM_ITS ---
EXAMINATION: BONE DENSITOMETRY CLINICAL INDICATION: Osteopenia, postmenopausal. COMPARISON: This is the patient's baseline examination. TECHNIQUE: Using a Vibease DXA System (software version: 13.1) manufactured by [employer], dual-energy x-ray absorptiometry was performed of the lumbar spine and left hip. The images are of good technical quality. Summary results are attached. FINDINGS: LEFT FEMUR, NECK: BMD 0.836 g/cm2, Z-score -0.3, T-score -1.5, osteopenia. LEFT FEMUR, TOTAL: BMD 0.895 g/cm2, Z-score -0.1, T-score -0.9, normal. AP SPINE L1-L4: BMD 1.077 g/cm2, Z-score 0.2, T-score -0.9, normal. IDENTIFIED RISK FACTORS: Early menopause, secondary osteoporosis, current smoker. HISTORY OF FRACTURE: None listed. MEDICATIONS: Vitamin D. MM/XR DEXA axial skeleton IMPRESSION: 1. DIAGNOSIS: Osteopenia based on the lowest T-score value of -1.5 in the femoral neck applying World Health Organization criteria. 2. 10-YEAR FRACTURE RISK PREDICTION, FRAX: Major osteoporotic fracture (clinical spine, forearm, hip or shoulder) 4.1%. Hip fracture 0.5%. 3. Treatment Recommendations: NOF guidelines recommend consideration for treatment in postmenopausal women and men age 50 and older presenting with the following: -A hip or vertebral (clinical or morphometric) fracture. -T-score less than or equal to -2.5 at the femoral neck or spine after appropriate evaluation to exclude secondary causes. -Low bone mass at the hip or spine and a 10-year fracture probability by FRAX of greater than or equal to 3% for hip fracture or greater than or equal to 20% for major osteoporotic fracture based on the [place] adapted WHO algorithm. 4. Other Recommendations: All treatment decisions require clinical judgment and consideration of individual patient factors, including patient preferences, comorbidities, previous drug use, risk factors not captured in the FRAX model (e.g. frailty, falls, vitamin D deficiency, increased bone turnover, interval significant decline in bone density) and possible under or overestimation of fracture risk by FRAX. Additional medical evaluation for secondary cause of low bone mineral density may be appropriate. FUTURE SCAN RECOMMENDATION: People with diagnosed cases of osteoporosis or at high risk for fracture should have regular bone mineral density tests. For patients eligible for Medicare, routine testing is allowed once every 2 years. The testing frequency can be increased to one year for patients who have rapidly progressing disease, those who are receiving or discontinuing medical therapy to restore bone mass, or have additional risk factors.
[2023-09-27] MEDS: Lidocaine HCl 1 % 20 ML VIAL SUBCUT (08:54)
[2023-09-27] MEDS: Sodium Bicarbonate 8.4% 50 MEQ/50 ML VIAL SUBCUT (08:55)
== END 2023-09-27 07:33 | disposition home or self-care (01) ==
LOC: HO.MAMMO 07:32
PROVIDERS: PCP Nurse Practitioner; Visit Provider Surgery
DX: C50.912 Malignant neoplasm of unspecified site of left female breast (principal); Z13.820 Encounter for screening for osteoporosis; Z78.0 Asymptomatic menopausal state; M85.80 Other specified disorders of bone density and structure, unspecified site
CPT/HCPCS: 19281; 77080; C1819

== ENCOUNTER 2023-10-27 15:07 | Outpatient (REF) | payer MEDICAID, SELFPAY | END 2023-10-27 15:08 | disposition home or self-care (01) | LOC: HO.HHCL 15:07 | PROVIDERS: Visit Provider Surgery | DX: Z13.89 Encounter for screening for other disorder (principal) ==

== ENCOUNTER 2023-11-02 10:59 | Outpatient (AMB) | payer MEDICAID, SELFPAY ==
--- NOTE | 2023-11-02 11:03 | MHC.OFFVIS ---
Vital Signs 11/02/23 11:12 Height 5 ft 3 in Weight 142 lb BMI 25.2 BP 117/64 Blood Pressure Location Lt brachial Position Sitting Pulse 63 Intake Visit Reasons: MRI follow-up *MRI [facility] Intake Note: Patient is seen in office for MRI follow-up *MRI [facility]. Pt c/o; nausea after meals, and tired Accompanied by: Family/Other Allergies No Known Allergies Allergy (Unverified 11/10/23 13:47) Medication List - Last Reconciled 11/13/23 by Sumit Roberts MD cholecalciferol (vitamin D3) (Vitamin D3) 125 mcg PO DAILY escitalopram oxalate 20 mg PO DAILY famotidine 20 mg PO DAILY hydroxyzine HCl 50 mg PO QID PRN HPI HPI MRI follow-up *MRI [facility]: Details: She is here to discuss her MRI biopsy for the right breast done a [facility]. She has no new other complaints [facility] Medical History 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 Breast mass, right Invasive ductal carcinoma of breast Left breast mass Surgical History History of removal of ovarian cyst Family History Maternal Aunt Breast cancer Maternal Uncle Lung cancer Social History Household Members: Other Patient Tobacco Use Status: Current everyday Tobacco user Substance Use Type: Marijuana service: No Current occupational status: employed [employer] Const Denies chills and Denies fever(s) Card Denies chest pain, Denies dyspnea and Denies dyspnea on exertion Resp Denies cough, Denies dyspnea and Denies dyspnea on exertion GI Denies hematochezia and Denies change in bowel habits Denies hematuria Musc Denies back pain and Denies limited range of motion Neuro Denies focal weakness and Denies convulsions Psych Denies depression and Denies mood swings Physical Exam Vital Signs: Last Vital Signs Pulse 63 11/02/23 11:12 BP 117/64 11/02/23 11:12 BMI result Body Mass Index 25.2 Const General: comfortable and no acute distress Resp Effort & Inspection: normal respiratory effort GI Palpation (GI): Soft to palpation Assessment & Plan Assessment & Plan (1) Breast mass, right: Code(s): N63.10 - Unspecified lump in the right breast, unspecified quadrant Category: Medical Plan: I explained to her that the results with a right breast biopsy isn't back yet. I will call her as soon as we get the results so that we can discuss the next step in her care.
[2023-11-02 11:12] VITALS: BP 117/64; PULSE 63; BMI 25.2
== END 2023-11-02 11:26 | disposition home or self-care (01) ==
PROVIDERS: PCP Nurse Practitioner; Visit Provider Surgery
DX: N63.10 Unspecified lump in the right breast, unspecified quadrant (principal)

== ENCOUNTER → 2023-11-02 10:59 | Outpatient (BNVA) | payer MEDICAID, SELFPAY | PROVIDERS: PCP Nurse Practitioner; Visit Provider Surgery | DX: N63.10 Unspecified lump in the right breast, unspecified quadrant (principal) | CPT/HCPCS: 99211 ==

== ENCOUNTER 2023-11-09 14:05 | Outpatient (AMB) | payer MEDICAID, SELFPAY ==
--- NOTE | 2023-11-09 14:25 | A.OFFVIS_ITS ---
Vital Signs 11/09/23 14:32 Height 5 ft 3 in Weight 142 lb BMI 25.2 Intake Visit Reasons: MR guided RT breast Bx results*[facility] Intake Note: This patient presents for MR guided Bx right breast. Patient c/o; reports no complaints. Hand Stapler Required: Yes Hand Stapler Language: Diesel Maintenance Technician Name: Rivera Information Interpreted: non-clinical & clinical Accompanied by: Self / Same As Patient Allergies No Known Allergies Allergy (Unverified 11/10/23 13:47) Medication List - Last Reconciled 11/09/23 by Sumit Roberts MD cholecalciferol (vitamin D3) (Vitamin D3) 125 mcg PO DAILY escitalopram oxalate 20 mg PO DAILY famotidine 20 mg PO DAILY hydroxyzine HCl 50 mg PO QID PRN HPI HPI MR guided RT breast Bx results*[facility]: Details: 58-year-old female here for follow-up for invasive ductal cancer in the left breast. I sent her for MRI biopsy of the right breast as recommended by the radiologist because of nonspecific enhancement at the 9 o'clock position. She had this MR biopsy done last November 05. She had a previous ultrasound biopsy of a bilobed mass at the 6 o'clock position of the left breast last August. Unfortunately this was an invasive ductal carcinoma, ERPR positive, HER2 negative. She had wanted to proceed with lumpectomy, with localization and sentinel biopsy for this. However, we had to hold this off in view of The path report for the right breast MR biopsy shows focal atypical ductal hyperplasia, with LCIS and atypical lobular hyperplasia as well. She denies any palpable masses on either breast. Her menarche was at age of 15. She had never been . She had menopause at 48. She smokes 1-2 cigarettes a day. [facility] Medical History 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 Breast mass, right Invasive ductal carcinoma of breast Left breast mass Surgical History History of removal of ovarian cyst Family History Maternal Aunt Breast cancer Maternal Uncle Lung cancer Social History Household Members: Other Patient Tobacco Use Status: Current everyday Tobacco user Substance Use Type: Marijuana service: No Current occupational status: employed [employer] Const Denies chills and Denies fever(s) Card Denies chest pain, Denies dyspnea and Denies dyspnea on exertion Resp Denies cough, Denies dyspnea and Denies dyspnea on exertion GI Denies hematochezia and Denies change in bowel habits Denies hematuria Musc Denies back pain and Denies limited range of motion Neuro Denies focal weakness and Denies convulsions Psych Denies depression and Denies mood swings Physical Exam Vital Signs: BMI result Body Mass Index 25.2 Const General: comfortable and no acute distress Orientation/consciousness: patient oriented x3 Neck Neck: Yes no lymphadenopathy Resp Auscultation: clear to auscultation bilaterally Cardio Rhythm: regular rhythm GI Palpation (GI): Soft to palpation, nontender and no guarding Neuro General: patient oriented x3 Assessment & Plan Assessment & Plan (1) Invasive ductal carcinoma of left breast: Code(s): C50.912 - Malignant neoplasm of unspecified site of left female breast Category: Medical Plan: I explained to her the findings on biopsy. She has invasive ductal cancer on the left breast as described above at the 6 o'clock position. This seemed to measure about 2.6 cm on mammogram. The biopsy of the right breast at the right lower quadrant showed call atypical ductal hyperplasia with LCIS and atypical lobular hyperplasia. There does not appear to be any invasive component. I had very long discussion with her about her options. I explained to her that the presence of LCIS is a predictor of future invasive cancer on both the left and right breast. An option is to do a prophylactic bilateral mastectomy. We will have to do a sentinel lymph node biopsy of the left axilla because of the invasive cancer seen on the left The other option is to proceed breast conservation therapy with lumpectomy for the left breast with sentinel biopsy and this can be done with a Hologic localizer .We also need to do lumpectomy with Hologic localizer of the right breast as well for the ADH. I told her that the ADH is often associated with higher grade lesion so a lumpectomy is also indicated She does not want to do any mastectomy if possible at this time. She initially wanted to proceed with lumpectomy for both breasts with Hologic localizer, and sentinel biopsy for the left side. I explained the technique of this procedure. I discussed the risks including but not limited to bleeding, infections, flap necrosis, hematoma, postop pain, need for further surgeries, as well as the benefits and alternatives I reviewed her case especially her MRI findings with Dr. Artem Mayo of Radiology. He is concerned that the lesion on the left may be extending far wider than biopsy site itself. He thinks that the widest dimension may be up to 5 cm. I explained to the patient and offered the option of proceeding with mastectomy in view of the possibility of requiring additional procedures to achieve negative margins. I discussed the technique of mastectomy sentinel biopsy for the left breast. She says that now she wants to proceed with mastectomy for the left breast along with sentinel biopsy. She says that since she is proceeding with a full mastectomy of the left breast, she wants to proceed with mastectomy with right breast as well. I will have to do a sentinel biopsy of the right axilla as well in the event that there is a malignant neoplastic process seen on the mastectomy site. She understands the option of breast reconstruction as well but she is only interested in treatment for her breast cancer at this time. She understands the above procedures. The patient will therefore be scheduled for bilateral mastectomy and bilateral sentinel biopsy. I have also discussed the above with the oncologist service. (2) Atypical ductal hyperplasia of right breast: Code(s): N60.91 - Unspecified benign mammary dysplasia of right breast Category: Medical Plan: She wants to undergo simple mastectomy for the right breast as well because of the presence of LCIS and atypical ductal hyperplasia. I have planned on proceeding with sentinel node biopsy for the right breast in the event there is a malignant neoplastic in the mastectomy specimen. Coding Level of Care Code Est Pt Level 4 (48019) Diagnoses Invasive ductal carcinoma of left breast C50.912 Atypical ductal hyperplasia of right breast N60.91
[2023-11-09 14:32] VITALS: BMI 25.2
== END 2023-11-09 14:49 | disposition home or self-care (01) ==
PROVIDERS: PCP Nurse Practitioner; Referring Provider Nurse Practitioner; Visit Provider Surgery
DX: C50.912 Malignant neoplasm of unspecified site of left female breast (principal); N60.91 Unspecified benign mammary dysplasia of right breast
CPT/HCPCS: 99214

== ENCOUNTER → 2023-11-09 14:05 | Outpatient (BNVA) | payer MEDICAID, SELFPAY | PROVIDERS: PCP Nurse Practitioner; Visit Provider Surgery | DX: C50.912 Malignant neoplasm of unspecified site of left female breast (principal); N60.91 Unspecified benign mammary dysplasia of right breast; Z17.0 Estrogen receptor positive status [ER+] | CPT/HCPCS: 99212 ==

== ENCOUNTER 2023-11-22 11:00 | Inpatient (IN) | payer MEDICAID, SELFPAY ==
--- NOTE | 2023-11-20 14:15 | HO.ANESPROP2 ---
HPI - Anesthesia Eval Consult details Narrative: 58yo F for Left and Right Breast Lumpectomy w/LOCalizer, [place] Node Biopsy PMFSH Active Problems Active Problems: All Active Problems Atypical ductal hyperplasia of right breast (Acute) Invasive ductal carcinoma of left breast (Acute) Breast mass, right (Acute) Invasive ductal carcinoma of breast (Acute) Left breast mass (Acute) Past Medical History Medical History 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 Breast mass, right Invasive ductal carcinoma of breast Left breast mass Family History Family History Maternal Aunt Breast cancer Maternal Uncle Lung cancer Surgical History Surgical History History of removal of ovarian cyst Social History Social History Household Members: Family Housing: House Do you presently have visiting nurse or other home services: No Patient Tobacco Use Status: Current everyday Tobacco user Tobacco use type: Cigarette Cigarette Packs Per Day: 0.3 Cigarettes Per Day: 6.0 e-Cigarette/Vaping Use: Never Used Second Hand Smoke Exposure: No Substance Use Type: Marijuana service: No Current occupational status: employed Meds Allergies Allergy/AdvReac Type Severity Reaction Status Date / Time No Known Allergies Allergy Unverified 11/10/23 13:47 Home Medications ?Medication ?Instructions ?Recorded ?Confirmed ?Last Taken ?Type cholecalciferol (vitamin D3) 125 125 mcg DAILY 11/22/23 11/22/23 Unknown History mcg (5,000 unit) capsule escitalopram oxalate 10 mg tablet 10 mg PO DAILY 11/22/23 11/22/23 Unknown History escitalopram oxalate 20 mg tablet 20 mg PO DAILY 11/22/23 11/22/23 Unknown History famotidine 20 mg tablet 20 mg PO BEDTIME 11/22/23 11/22/23 Unknown History hydroxyzine HCl 50 mg tablet 50 mg PO QID PRN anxiety 11/22/23 11/22/23 Unknown History melatonin 5 mg tablet 10 mg PO BEDTIME 11/22/23 11/22/23 Unknown History Exam Pertinent Lab Results Pertinent Lab Results: Laboratory Tests 10/19/23 11:12 WBC 8.3 Hgb 13.1 Hct 40.0 Plt Count 275 Sodium 144 Potassium 4.3 Chloride 103 Carbon Dioxide 29 BUN 13 Creatinine 0.79 Assessment and Plan Assessment Anesthesia Assessment: Chart Reviewed
[2023-11-22] VITALS (11 sets, daily range): BP systolic 111–179; BP diastolic 54–101; PULSE 54–83; RESP 16–20; TEMP 36.1–37.5; O2SAT 96–98; BMI 25.5
[2023-11-22] MEDS: Lidocaine 4 % Cream KIT 1 APPL TOPICAL ×2 (08:29)
--- NOTE | 2023-11-22 11:07 | MHC.SHP ---
Pre-Procedural Eval Section A - 24 Hr Update-Section A only Date of Service: 11/22/23 The patient is an INPATIENT: No The patient has been examined within 24 hours of the surgical procedure. The History & Physical has been completed within 30 days and I have reviewed it.: Yes Section B - Complete if H&P > 30 days Chief Complaint: Invasive ductal carcinoma Allergies: Allergies Allergy/AdvReac Type Severity Reaction Status Date / Time No Known Allergies Allergy Unverified 11/10/23 13:47 Plan I have reviewed the history and physical and performed a pertinent physical examination on my patient. No changes have occurred unless specified. Time Spent With Patient Time: Total time managing care of this patient today ____ minutes.
--- NOTE | 2023-11-22 11:44 | P.CONAN_ITS ---
[facility] Active Problems Active Problems: All Active Problems Atypical ductal hyperplasia of right breast (Acute) Invasive ductal carcinoma of left breast (Acute) Breast mass, right (Acute) Invasive ductal carcinoma of breast (Acute) Left breast mass (Acute) Past Medical History Medical History 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 Breast mass, right Invasive ductal carcinoma of breast Left breast mass Functional capacity: independent ambulation Patient : No Family History Family History Maternal Aunt Breast cancer Maternal Uncle Lung cancer Family history of problems with anesthesia: No Surgical History Surgical History History of removal of ovarian cyst History of Problems with Anesthesia: No Social History Social History Household Members: Other Patient Tobacco Use Status: Current everyday Tobacco user Tobacco use type: Cigarette Cigarettes Per Day: 2 Second Hand Smoke Exposure: No Use of substances other than those prescribed or required for medical reasons: Yes Substance Use Type: Marijuana Substance Use Frequency: Daily Are you DNR?: No Advance Directives: No Advance Directives Information Provided: Yes Advance Directives on File: No service: No Current occupational status: employed Meds Allergies Allergy/AdvReac Type Severity Reaction Status Date / Time No Known Allergies Allergy Unverified 11/10/23 13:47 Active Medications: Current Medications Heparin Sodium (Porcine) (Heparin Sodium,Porcine 5,000 Unit/Ml Vial) 5,000 unit SUBCUT Q8H [place] Lactated Ringer's (Lr) 1,000 mls @ 100 mls/hr IVCONT .Q10H [place] Sodium Chloride (0.9 % Sodium Chloride Flush 3 Ml Syringe) 3 ml IVFLUSH QSHIFT [facility] Home Medications ?Medication ?Instructions ?Recorded ?Confirmed ?Last Taken ?Type cholecalciferol (vitamin D3) 125 125 mcg DAILY 11/22/23 Unknown History mcg (5,000 unit) capsule escitalopram oxalate 10 mg tablet 10 mg PO DAILY 11/22/23 Unknown History escitalopram oxalate 20 mg tablet 20 mg PO DAILY 11/22/23 Unknown History famotidine 20 mg tablet 20 mg PO BEDTIME 11/22/23 Unknown History hydroxyzine HCl 50 mg tablet 50 mg PO QID PRN anxiety 11/22/23 Unknown History melatonin 5 mg tablet 10 mg PO BEDTIME 11/22/23 Unknown History melatonin 5 mg tablet 10 mg PO BEDTIME PRN Sleep 11/22/23 Unknown History Exam Height,Weight and Vital Signs: Height 5 ft 3 in Weight 65.431 kg Last Vital Signs Temp 97.5 F 11/22/23 08:13 Pulse 54 11/22/23 08:13 Resp 16 11/22/23 08:13 BP 111/54 L 11/22/23 08:13 Pulse Ox 97 11/22/23 08:13 O2 Del Method Room Air 11/22/23 08:13 Airway Mallampati Class: II TM Dist: >3cm Neck ROM: Full Heart: RRR Lungs: CTA Assessment and Plan Assessment Anesthesia Assessment: Anesthesia Plan Discussed and Smoking Cess. Discussed Final Anesthetic Review Family History of Problems with Anesthesia: No History of Problems with Anesthesia: No ASA Class: II Final Preanesthetic Review: Meds/Allgs Chart Reviewed, Consent Obtained/Reviewed and Anes Risks/Benef Reviewed Patient Risk: Intermediate Procedure Risk: Low Anesthetic Plan Anesthetic Plan: GA Disposition: Standard PACU
--- NOTE | 2023-11-22 13:19 | HO.ANESPROP2 ---
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 Breast mass, right Invasive ductal carcinoma of breast Left breast mass Functional capacity: independent ambulation Family History Family History Maternal Aunt Breast cancer Maternal Uncle Lung cancer Family history of problems with anesthesia: No Surgical History Surgical History History of removal of ovarian cyst History of Problems with Anesthesia: No Social History Social History Household Members: Other Patient Tobacco Use Status: Current everyday Tobacco user Tobacco use type: Cigarette Cigarettes Per Day: 2 Second Hand Smoke Exposure: No Use of substances other than those prescribed or required for medical reasons: Yes Substance Use Type: Marijuana Substance Use Frequency: Daily Are you DNR?: No Advance Directives: No Advance Directives Information Provided: Yes Advance Directives on File: No Patient : No service: No Current occupational status: employed Meds Allergies Allergy/AdvReac Type Severity Reaction Status Date / Time No Known Allergies Allergy Unverified 11/10/23 13:47 Active Medications: Current Medications Fentanyl (Fentanyl Citrate/Pf 100 Mcg/2 Ml Vial) 25 mcg IVPUSH Q5M PRN; Protocol PRN Reason: Pain, Moderate(Pain Scale 4-6) Stop: 11/22/23 17:46 Heparin Sodium (Porcine) (Heparin Sodium,Porcine 5,000 Unit/Ml Vial) 5,000 unit SUBCUT Q8H [place] Lactated Ringer's (Lr) 1,000 mls @ 100 mls/hr IVCONT .Q10H [place] Sodium Chloride (0.9 % Sodium Chloride Flush 3 Ml Syringe) 3 ml IVFLUSH QSHIFT [place] Home Medications ?Medication ?Instructions ?Recorded ?Confirmed ?Last Taken ?Type cholecalciferol (vitamin D3) 125 125 mcg DAILY 11/22/23 Unknown History mcg (5,000 unit) capsule escitalopram oxalate 10 mg tablet 10 mg PO DAILY 11/22/23 Unknown History escitalopram oxalate 20 mg tablet 20 mg PO DAILY 11/22/23 Unknown History famotidine 20 mg tablet 20 mg PO BEDTIME 11/22/23 Unknown History hydroxyzine HCl 50 mg tablet 50 mg PO QID PRN anxiety 11/22/23 Unknown History melatonin 5 mg tablet 10 mg PO BEDTIME 11/22/23 Unknown History melatonin 5 mg tablet 10 mg PO BEDTIME PRN Sleep 11/22/23 Unknown History Exam Height,Weight and Vital Signs: Height 5 ft 3 in Weight 65.431 kg Last Vital Signs Temp 97.5 F 11/22/23 08:13 Pulse 54 11/22/23 08:13 Resp 16 11/22/23 08:13 BP 111/54 L 11/22/23 08:13 Pulse Ox 97 11/22/23 08:13 O2 Del Method Room Air 11/22/23 08:13 Airway Mallampati Class: II TM Dist: >3cm Neck ROM: Full Heart: RRR Lungs: CTA Assessment and Plan Assessment Anesthesia Assessment: Anesthesia Plan Discussed Final Anesthetic Review Family History of Problems with Anesthesia: No History of Problems with Anesthesia: No NPO: Yes ASA Class: II Final Preanesthetic Review: Meds/Allgs Chart Reviewed, Consent Obtained/Reviewed and Anes Risks/Benef Reviewed Patient Risk: Low Procedure Risk: Low Anesthetic Plan Anesthetic Plan: GA Disposition: Standard PACU
--- NOTE | 2023-11-22 17:28 | P.OP_ITS ---
Operative Note Operative Note Date of Service: 11/22/23 Narrative: Preop diagnosis: Invasive ductal carcinoma, left breast Lobular carcinoma in situ, and atypical ductal hyperplasia, right breast Postop diagnosis: The same Procedure: Bilateral total mastectomy, with bilateral sentinel node biopsy Surgeon: Sumit Roberts MD bilingual teacher assistant: CARLA Pierce The patient is a 58 year old female with a recent diagnosis of invasive ductal carcinoma of the left breast. MR biopsy of the right breast showed LCIS as well as atypical ductal hyperplasia as well I explained to her that the treatment options for her left breast cancer which include lumpectomy followed by radiation, with sentinel biopsy or mastectomy with sentinel biopsy. Review of her MRI with the radiologist showed that the tumor may be much wider than the initial program appearance. After discussions with the radiologist as well as the oncologist, I explained the above to the patient and told her that there is a possibility that the tumor may be bigger than suggested by the mammogram. She therefore decided to proceed with a cystectomy with sentinel biopsy for the left breast. Because of the presence of atypical ductal hyperplasia on the right breast, I explained to her that we needed to do a lumpectomy as well. However, she says that since we were doing a full mastectomy on the left breast, she wanted to proceed with total mastectomy as well of the right breast especially because of the presence of LCIS. I told her that it will be best to proceed with sentinel biopsy of the right axilla as well if he were removing the breast entirely in the event that there was a malignant neoplastic process on the right breast as well. She understood that the planned procedure. She was aware of the risks, benefits, and alternatives She was brought to the operating room placed supine with the arms abducted. She was under general anesthesia via laryngeal mask airway. Both breasts were prepped in the usual sterile fashion. A surgical time-out had been done. The patient received cefazolin 2 g IV preoperatively She had undergone scintigraphy earlier in the radiology department and I had reviewed the films for this. There seemed to be 1 lymph node in the axilla lighting up on the scintigraphy on the left side I proceeded to make the incision on the left breast including the nipple- areolar complex using blade 15. This was carried down through the full-thickness of the skin and subcutaneous fat with electrocautery. I then developed the superior flap, maintaining a thickness of about 5 mm consistently as much as possible all the way to the level of the clavicle. I developed the superior flap as well in the same fashion using electrocautery all the way to the infra mammary fold. The medial margin of our dissection of the breast was the barbra rnum. I proceeded to then separate the entire breast tissue off of the pectoralis muscle taking down the sternal site laterally along well-defined plane between the pectoralis muscle and the pectoralis fascia. This was done with electrocautery and we proceeded to continue to separate this entire breast tissue from medial to lateral until was able to visualize the lateral edge of the pectoralis. At this point therefore proceeded to complete resection of the tail of the breast and connected this with our dissection from inferiorly. We the entire breast tissue from the axilla this was sent as a specimen. I marked the medial side with a stitch. We proceeded to control oozing areas. There were some perforators that were bleeding which via to tie off or apply some [id number] Polysorb 3-0 sutures. We copiously irrigated. We were able to achieve good hemostasis on the chest wall. We then proceeded to lift up the flap on the axilla with Garcia retractors and used the true Jet-node probe to identify sentinel nodes. I entered the axillary fat pad by dividing through the fascia. With the use of the probe, I was able to identify 2 sentinel nodes. Stapleton node 1 had a count of 2300. Stapleton node 2 had a count of 1275. We observed for hemostasis. Once hemostasis was confirmed on the axilla as well as the cyst wall, proceeded to position a JUAN CARLOS 10 drain underneath the inferior flap and a JUAN CARLOS 7 drain underneath the superior flap and the axilla this was brought out through an exit site on the lateral aspect of the lower flap. We then proceeded to cover up this area with moist lap pads and proceeded to do the mastectomy and the sentinel biopsy for the contralateral right breast I proceeded to make the same incision on the right breast using blade 15.This incision was carried down through the full-thickness of the skin and subcutaneous fat with electrocautery. I then developed the superior flap, maintaining a thickness of about 5 mm consistently as much as possible all the way to the level of the clavicle. I developed the superior flap as well in the same fashion using electrocautery all the way to the infra mammary fold. The medial margin of our dissection of the breast was the sternum. I proceeded to then separate the entire breast tissue off of the pectoralis muscle taking down the sternal site laterally along well-defined plane between the pectoralis muscle and the pectoralis fascia. This was done with electrocautery and we proceeded to continue to separate this entire breast tissue from medial to la teral until was able to visualize the lateral edge of the pectoralis. At this point therefore proceeded to complete resection of the tail of the breast and connected this with our dissection from inferiorly. We the entire breast tissue from the axilla this was sent as a specimen. I marked the medial side with a stitch. We controlled oozing areas with electrocautery. Perforators that were seen were controlled as well with [id number] Polysorb 3-0 sutures and by ligation. We copiously irrigated and examined. We appeared to have good hemostasis of the chest wall. I then proceeded to lift up the flap on the axilla area Garcia retractors. I entered the axillary fat pad by dividing the fascia and with the used the probe I was able to identify 2 sentinel nodes Stapleton node 1 had a count of 403. Stapleton node 2 had a count of 810. There was no other elevated counts in the background tissue. We placed the JUAN CARLOS 10 drain in the JUAN CARLOS 7 drain on the superior and inferior flaps in the same manner. We made sure we had good hemostasis. We observed the chest wall and the axilla on both sides. Once we confirmed hemostasis, we reapposed the subdermal layers with Polysorb 3-0 interrupted sutures. Skin closure was achieved on both incisions with soap 4-0 subcuticular running sutures. Dressings were applied as well as Steri-Strips The mastectomy binder was positioned as well The patient was awakened. She was extubated and transferred to the recovery room with stable vital signs She tolerated procedure well. There were no immediate complications. Initial and final counts of sponges and instruments were correct. Estimated blood loss about 200 cc Breast Stapleton Node Biopsy Substrate(s) used for sentinel node biopsy in the non-neoadjuvant setting: Radiotracer All colored nodes or non-colored nodes present at the end of a dye filled lymphatic channel were removed, if dye was used as the substrate for localization: N/A All significantly radioactive nodes were removed, if radionuclide was used as the substrate for localization: Yes All palpably suspicious nodes were removed, if present: N/A If clips were placed in pathology-involved nodes, those nodes were identified and removed: N/A General Surg. - Synoptic Notes Breast Stapleton Node Biopsy Substrate(s) used for sentinel node biopsy in the non-neoadjuvant setting: Radiotracer All colored nodes or non-colored nodes present at the end of a dye filled lymphatic channel were removed, if dye was used as the substrate for localization: N/A All significantly radioactive nodes were removed, if radionuclide was used as the substrate for localization: Yes All palpably suspicious nodes were removed, if present: N/A If clips were placed in pathology-involved nodes, those nodes were identified and removed: N/A
[2023-11-22] MEDS: HYDROmorphone HCl 0.5 MG/0.5 ML SYRINGE 0.25 MG IVPUSH ×2 (17:41→17:46)
[2023-11-22] MEDS: oxyCODONE HCl Immed Release 5 MG TABLET 10 MG PO (17:49)
--- NOTE | 2023-11-22 17:58 | PM.EVENT ---
Event Note Date of Service: 11/23/23 Event Note: seen postop s/p bilateral mastectomy, SLN biopsy awake, appears comfortable stable VS JUAN CARLOS drains x 4 scanty bloody output explained to her procedure also talked to Carlos Enrique her next of kin, updated pain mgt drain care Time Spent With Patient Time: Total time managing care of this patient today ____ minutes.
--- NOTE | 2023-11-22 19:35 | PHA.MEDREC ---
Pharmacy Consult ? Medication Reconciliation Pharmacy has completed the medication reconciliation.
[2023-11-22] MEDS: Lactated Ringers 1,000 ML 100 ML IVCONT (19:49)
[2023-11-22] MEDS: Acetaminophen 1,000 MG/100 ML PIGGYBACK 400 MG IV (20:03)
[2023-11-22] MEDS: Famotidine 20 MG TABLET PO (20:04)
[2023-11-22] MEDS: HYDROmorphone HCl 0.5 MG/0.5 ML SYRINGE IVPUSH (23:38)
[2023-11-23 02:56] VITALS: BP 152/67; PULSE 50; RESP 18; TEMP 36.2; O2SAT 99
[2023-11-23] MEDS: Acetaminophen 1,000 MG/100 ML PIGGYBACK 400 MG IV ×4 (03:00→19:43)
[2023-11-23] MEDS: oxyCODONE HCl Immed Release 5 MG TABLET 10 MG PO (05:53)
[2023-11-23] MEDS: Omeprazole 20 MG CAPSULE.DR PO (05:53)
[2023-11-23 06:00] LABS: MANUAL DIFF FLAG NO
[2023-11-23] MEDS: Lactated Ringers 1,000 ML 100 ML IVCONT ×3 (06:03→22:15)
[2023-11-23 06:13] LABS: Basophils Percent Auto 0.2 % (0-2); Hematocrit 32.3 % (37.0-47.0); Hemoglobin 10.9 g/dl (12.0-16.0); Imm Gran Abs Auto 0.09 X10*3/uL (0.00-0.03); Imm Gran Pct Auto 0.6 % (0.0-0.4); Lymphocytes Absolute Auto 1.5 X10*3/uL (1.2-4.9); Lymphocytes Percent Auto 9.8 % (20-40); Mean Corpuscular HGB Conc 33.7 g/dl (31.0-35.0); Mean Corpuscular Hemoglobin 29.1 pg (27.0-33.0); Mean Corpuscular Volume 86.4 fL (80.0-98.0); Mean Platelet Volume 10.9 fL (9.4-12.3); Monocytes Absolute Auto 0.8 X10*3/uL (0.1-1.2); Monocytes Percent Auto 5.6 % (2-11); Neutrophils Absolute Auto 12.4 x10*3/uL (2.0-8.3); Neutrophils Percent Auto 83.8 % (45-73); Platelet Count 240 X10*3/uL (160-400); Red Blood Count 3.74 X10*6/uL (4.20-5.50); Red Cell Distribution Width 12.8 % (11.0-16.0); White Blood Count 14.8 X10*3/uL (4.8-10.8)
[2023-11-23 06:22] LABS: Anion Gap 10 (12-20); Blood Urea Nitrogen 11 mg/dL (9-16); Calcium 8.6 mg/dL (8.4-10.2); Carbon Dioxide 26 mmol/L (22-29); Chloride 107 mmol/L (96-108); Creatinine Clr Calc Pharmacy 73.4; Estimated Glomerular Filt Rate > 60; Glucose Fasting 171 mg/dL (60-99); Potassium 4.5 mmol/L (3.3-5.1); Sodium 138 mmol/L (135-145)
--- NOTE | 2023-11-23 07:48 | PM.PNGS ---
Subjective Subjective Date of Service: 11/23/23 <Ailyn Pierce PA-C - Last Filed: 11/23/23 07:54> 11/23/23 <Sumit Roberts MD - Last Filed: 11/23/23 09:06> Interval history: Feels well this morning, pain controlled on analgesics. Tolerating solid diet. OOB and ambulating. <Ailyn Pierce PA-C - Last Filed: 11/23/23 07:54> Physical Exam Vital Signs: Vital Signs: Last Vital Signs Temp 97.2 F 11/23/23 02:56 Pulse 50 11/23/23 02:56 Resp 18 11/23/23 02:56 BP 152/67 H 11/23/23 02:56 Pulse Ox 99 11/23/23 02:56 O2 Del Method Room Air 11/23/23 02:56 O2 Flow Rate 6 11/22/23 17:35 BMI result Body Mass Index 25.5 <FAWAD Pelaez Last Filed: 11/23/23 07:54> Const: General: comfortable, no acute distress and alert <Ailyn Pierce PA-C - Last Filed: 11/23/23 07:54> Orientation/consciousness: patient oriented x3 <FAWAD Pelaez Last Filed: 11/23/23 07:54> Chest: Other: b/l mastectomy dressings c/d/i, JUAN CARLOS drains with some sanguineous output <FAWAD Pelaez Last Filed: 11/23/23 07:54> Resp: Effort & Inspection: normal respiratory effort <FAWAD Pelaez Last Filed: 11/23/23 07:54> Cardio: Rate: regular rate <FAWAD Pelaez Last Filed: 11/23/23 07:54> Skin: General skin exam: no rashes or lesions noted <FAWAD Pelaez Last Filed: 11/23/23 07:54> Neuro: General: patient oriented x3 and moves all extremities <FAWAD Pelaez Last Filed: 11/23/23 07:54> Objective Data Active Medications Famotidine (Famotidine 20 Mg Tablet) 20 mg PO BEDTIME [facility] Last Admin: 11/22/23 20:04 Dose: 20 mg Documented By: DAISY Heparin Sodium (Porcine) (Heparin Sodium,Porcine 5,000 Unit/Ml Vial) 5,000 unit SUBCUT Q8H [facility] Hydromorphone HCl (Hydromorphone Hcl 0.5 Mg/0.5 Ml Syringe) 0.5 mg IVPUSH Q3H PRN; Protocol PRN Reason: Pain, Severe (Pain Scale 7-10) Last Admin: 11/22/23 23:38 Dose: 0.5 mg Documented By: DAISY Lactated Ringer's (Lr) 1,000 mls @ 100 mls/hr IVCONT .Q10H [facility] Last Admin: 11/23/23 06:03 Dose: 100 mls/hr Documented By: DAISY Acetaminophen (Ofirmev) 1,000 mg in 100 mls @ 400 mls/hr IV Q6H [facility] Last Infusion: 11/23/23 03:26 Dose: Infused Documented By: DAISY Melatonin (Melatonin 3 Mg Tablet) 6 mg PO BEDTIME PRN PRN Reason: Insomnia Omeprazole (Omeprazole 20 Mg Capsule.Dr) 20 mg PO DAILY@0630 [facility] Last Admin: 11/23/23 05:53 Dose: 20 mg Documented By: DAIYS Oxycodone HCl (Oxycodone Hcl Immed Release 5 Mg Tablet) 10 mg PO Q4H PRN PRN Reason: Pain, Moderate(Pain Scale 4-6) Last Admin: 11/23/23 05:53 Dose: 10 mg Documented By: DAISY Sodium Chloride (0.9 % Sodium Chloride Flush 3 Ml Syringe) 3 ml IVFLUSH QSHIFT [facility] Last Admin: 11/23/23 07:10 Dose: Not Given Documented By: EDE Non-Admin Reason: IV Running <Ailyn Pierce PA-C - Last Filed: 11/23/23 07:54> Labs CBC & Chem 7: 11/23/23 05:33 11/23/23 05:33 <Ailyn Pierce PA-C - Last Filed: 11/23/23 07:54> Labs: Laboratory Results - last 24 hr 11/23/23 05:33 MCV 86.4 MCH 29.1 MCHC 33.7 RDW 12.8 Plt Count 240 MPV 10.9 Immature Gran % (Auto) 0.6 H Neut % (Auto) 83.8 H Lymph % (Auto) 9.[address] % (Auto) 5.6 Eos % (Auto) 0.0 Baso % (Auto) 0.2 Lymph # (Auto) 1.5 Lane # (Auto) 0.8 Eos # (Auto) 0.0 Baso # (Auto) 0.0 Abs Immat Gran (auto) 0.09 H Absolute Neuts (auto) 12.4 H Absolute Nucleated RBC 0.000 Nucleated RBC % (auto) 0.0 Anion Gap 10 L Estim Creat Clear Calc 73.4 Estimated GFR > 60 Fasting Glucose 171 H Calcium 8.6 D <Ailyn Pierce PA-C - Last Filed: 11/23/23 07:54> Procedures Date of Service Date of Service: 11/23/23 <Ailyn Pierce PA-C - Last Filed: 11/23/23 07:54> 11/23/23 <Sumit Roberts MD - Last Filed: 11/23/23 09:06> Progress Note: A&P Assessment and plan (1) Atypical ductal hyperplasia of right breast: Status: Acute <Ailyn Pierce PA-C - Last Filed: 11/23/23 07:54> Assessment and Plan: Says she has good pain control so far with IV pain meds JUAN CARLOS drains with scanty output Dressings dry Looks well clinically She does not feel ready to be discharged today Will ask protective services case worker to see patient for home care Seen and examined independently <Sumit Roberts MD - Last Filed: 11/23/23 09:06> (2) Invasive ductal carcinoma of left breast: Status: Acute <Ailyn Pierce PA-C - Last Filed: 11/23/23 07:54> (3) S/P bilateral mastectomy: Status: Acute <Ailyn Pierce PA-C - Last Filed: 11/23/23 07:54> Assessment and Plan: POD #1 s/p bilateral total mastectomy, with bilateral sentinel node biopsy. Doing well post op with good pain control. VSS. Mastectomy site dressings c/d/i, JUAN CARLOS drains with sanguineous output. Will remain inpatient another night for pain control. Increase activity. AM labs reviewed. <FAWAD Pelaez Last Filed: 11/23/23 07:54> Time Spent With Patient Time: Total time managing care of this patient today ____ minutes. <Ailyn Pierce PA-C - Last Filed: 11/23/23 07:54> Quality Stroke Does the patient have a stroke diagnosis?: No <Ailyn Pierce PA-C - Last Filed: 11/23/23 07:54> VTE Prior VTE?: No <FAWAD Pelaez Last Filed: 11/23/23 07:54> VTE Risk Level:: Surgical - high <FAWAD Pelaez Last Filed: 11/23/23 07:54> VTE Device Contraindication: N/A - Device Ordered <FAWAD Pelaez Last Filed: 11/23/23 07:54> VTE Drug Contraindication: N/A - Med Ordered <FAWAD Pelaez Last Filed: 11/23/23 07:54>
[2023-11-23 08:00] VITALS: BP 107/56; PULSE 50; RESP 18; TEMP 36.3; O2SAT 98
--- NOTE | 2023-11-23 08:15 | HO.POSTANES ---
Post Anesthesia Evaluation Post Anesthesia Evaluation Date of Service: 11/23/23 Vital Signs: Vital Signs Temp Pulse Resp BP Pulse Ox O2 Del Method 11/23/23 08:00 97.3 F 50 18 107/56 L 98 Room Air 11/23/23 02:56 97.2 F 50 18 152/67 H 99 Room Air Anesthesia: Nerve Block and General Mental Status: Awake Pain Control: Satisfactory Nausea/Vomiting: None Hydration: Adequate Anesthesia-Related Issues: No Anes. Related Issues
[2023-11-23] MEDS: Heparin Sodium,Porcine 5,000 UNIT/ML VIAL 5000 UNIT SUBCUT ×2 (08:52→17:15)
[2023-11-23] MEDS: HYDROmorphone HCl 0.5 MG/0.5 ML SYRINGE IVPUSH ×3 (09:09→22:14)
[2023-11-23 12:00] VITALS: BP 110/54; PULSE 56; RESP 18; TEMP 36.7; O2SAT 98
--- NOTE | 2023-11-23 15:38 | P.EN_ITS ---
Event Note Date of Service: 11/23/23 Event Note: Seen on afternoon rounds Says she is comfortable Denies significant complaints Adequate pain control JUAN CARLOS drains with scanty output, bloody She looks well Hope to be able to discharge home tomorrow Discussed with piano case and bench assembler about VNA services Time Spent With Patient Time: Total time managing care of this patient today ____ minutes.
--- NOTE | 2023-11-23 15:39 | W.MHC.F2F ---
Service Date Service Date: 11/23/23 Encounter Date of encounter: 11/23/23 Reasons for Services Signs and symptoms assessed: Has JUAN CARLOS drains, incisions for bilateral mastectomy Reason for halfway: wound care and postoperative assessment and/or care Homebound: Leaving the home is medically contraindicated at this time without the asist of a device and/or another person due th the listed conditions above and below. Reason homebound: pain with transfers Homebound supporting statement: Postop pain, has JUAN CARLOS drains Certification: Based on the above findings, I certify that this patient is confined to the home and needs intermittent halfway care, physical therapy and/or speech therapy, or continues to need occupational therapy. The patient is under my care, and I have initiated the establishment of the plan of care. The patient will be followed by a physician who will periodically review the plan of care. Time Spent With Patient Time: Total time managing care of this patient today ____ minutes.
[2023-11-23 16:00] VITALS: BP 115/56; PULSE 58; RESP 16; TEMP 36.6; O2SAT 97
--- NOTE | 2023-11-23 16:14 | MHC.CM.PN ---
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
[2023-11-23 20:00] VITALS: BP 117/57; PULSE 64; RESP 20; TEMP 36.2; O2SAT 98
[2023-11-23] MEDS: Famotidine 20 MG TABLET PO (20:30)
[2023-11-24 03:13] VITALS: BP 102/54; PULSE 61; RESP 18; TEMP 36.1; O2SAT 98
[2023-11-24] MEDS: Heparin Sodium,Porcine 5,000 UNIT/ML VIAL 5000 UNIT SUBCUT ×2 (04:20→09:07)
[2023-11-24] MEDS: HYDROmorphone HCl 0.5 MG/0.5 ML SYRINGE IVPUSH (04:22)
[2023-11-24] MEDS: Omeprazole 20 MG CAPSULE.DR PO (05:08)
[2023-11-24 07:44] VITALS: BP 119/55; PULSE 50; RESP 18; TEMP 36.1; O2SAT 98
[2023-11-24] MEDS: Lactated Ringers 1,000 ML 100 ML IVCONT (07:48)
--- NOTE | 2023-11-24 09:01 | PM.PNGS ---
Subjective Subjective Date of Service: 11/26/23 Interval history: Feels well Some pain on incisions No events reported Physical Exam Vital Signs: Vital Signs: Last Vital Signs Temp 97.0 F 11/24/23 07:44 Pulse 50 11/24/23 07:44 Resp 18 11/24/23 07:44 BP 119/55 L 11/24/23 07:44 Pulse Ox 98 11/24/23 07:44 O2 Del Method Room Air 11/24/23 07:44 O2 Flow Rate 6 11/22/23 17:35 BMI result Body Mass Index 25.5 Const: General: comfortable and no acute distress Chest: Other: Dressings taken down - all flaps viable, mild ecchymosis on the right upper chest; JUAN CARLOS drains with scanty dark blood, incisions dry Resp: Effort & Inspection: normal respiratory effort Objective Data Active Medications Famotidine (Famotidine 20 Mg Tablet) 20 mg PO BEDTIME [facility] Last Admin: 11/23/23 20:30 Dose: 20 mg Documented By: DAISY Heparin Sodium (Porcine) (Heparin Sodium,Porcine 5,000 Unit/Ml Vial) 5,000 unit SUBCUT Q8H [facility] Last Admin: 11/24/23 04:20 Dose: 5,000 unit Documented By: DAISY Comments: pt was sleeping Hydromorphone HCl (Hydromorphone Hcl 0.5 Mg/0.5 Ml Syringe) 0.5 mg IVPUSH Q3H PRN; Protocol PRN Reason: Pain, Severe (Pain Scale 7-10) Last Admin: 11/24/23 04:22 Dose: 0.5 mg Documented By: DAISY Acetaminophen (irmev) 1,000 mg in 100 mls @ 400 mls/hr IV Q6H [facility] Last Admin: 11/24/23 02:00 Dose: Not Given Documented By: DAISY Non-Admin Reason: Patient Refused Melatonin (Melatonin 3 Mg Tablet) 6 mg PO BEDTIME PRN PRN Reason: Insomnia Omeprazole (Omeprazole 20 Mg Capsule.) 20 mg PO DAILY@0630 [facility] Last Admin: 11/24/23 05:08 Dose: 20 mg Documented By: DAISY Oxycodone HCl (Oxycodone Hcl Immed Release 5 Mg Tablet) 10 mg PO Q4H PRN PRN Reason: Pain, Moderate(Pain Scale 4-6) Last Admin: 11/23/23 05:53 Dose: 10 mg Documented By: DAISY Sodium Chloride (0.9 % Sodium Chloride Flush 3 Ml Syringe) 3 ml IVFLUSH [facility] Last Admin: 11/24/23 06:53 Dose: Not Given Documented By: EDE Non-Admin Reason: IV Running Labs 11/23/23 05:33 11/23/23 05:33 Procedures Date of Service Date of Service: 11/26/23 Progress Note: A&P Assessment and plan (1) Invasive ductal carcinoma of left breast: Status: Acute Assessment and Plan: Status post bilateral mastectomy and sentinel node biopsies No doing well I changed her dressings, flaps appear viable and incisions clean and healing well She says she is ready to be discharged Oral pain meds Visiting nurse services arranged - discussed with onsite case managerclient development manager on JUAN CARLOS drain care with nursing staff Follow-up next week in the office I had attempted to call Carlos Enrique multiple times -his phone does not appear to be working Time Spent With Patient Time: Total time managing care of this patient today ____ minutes. Quality Stroke Does the patient have a stroke diagnosis?: No VTE Prior VTE?: No VTE Risk Level:: Surgical - high VTE Device Contraindication: N/A - Device Ordered VTE Drug Contraindication: N/A - Med Ordered
[2023-11-24] MEDS: oxyCODONE HCl Immed Release 5 MG TABLET 10 MG PO (09:07)
--- NOTE | 2023-11-24 09:21 | MHC.CM.PN ---
pt dcd today with [facility] ,[facility] [place] at [address] [facility] notified of same
--- NOTE | 2023-11-24 10:12 | PM.DS ---
DS: Providers Provider Date of Service: 11/24/23 Date of admission: 11/22/23 11:00 Primary care physician: Skyla Hodge Attending physician on admission: Sumit Roberts Attending physician on discharge: Sumit Roberts DS: Diagnosis Discharge Diagnosis (1) Invasive ductal carcinoma of left breast: Status: Acute DS: Summary Hospital Course Hospital Course: HPI AT ADMISSION: The patient is a 58 year old female with a recent diagnosis of invasive ductal carcinoma of the left breast. MR biopsy of the right breast showed LCIS as well as atypical ductal hyperplasia as well I explained to her that the treatment options for her left breast cancer which include lumpectomy followed by radiation, with sentinel biopsy or mastectomy with sentinel biopsy. Review of her MRI with the radiologist showed that the tumor may be much wider than the initial program appearance. After discussions with the radiologist as well as the oncologist, I explained the above to the patient and told her that there is a possibility that the tumor may be bigger than suggested by the mammogram. She therefore decided to proceed with a cystectomy with sentinel biopsy for the left breast. Because of the presence of atypical ductal hyperplasia on the right breast, I explained to her that we needed to do a lumpectomy as well. However, she says that since we were doing a full mastectomy on the left breast, she wanted to proceed with total mastectomy as well of the right breast especially because of the presence of LCIS. I told her that it will be best to proceed with sentinel biopsy of the right axilla as well if he were removing the breast entirely in the event that there was a malignant neoplastic process on the right breast as well. She now presents for the planned procedure. HOSPITAL COURSE: On 11/22/23, bilateral total mastectomy, with bilateral sentinel node biopsy was performed by Dr. Roberts without complication. She was admitted to the surgical service post operatively for observation. She had an uncomplicated recovery course. She remained inpatient for 2 nights for pain control. On the day of discharge, she was tolerating a solid diet, had good pain control on oral analgesics. Her mastectomy incision sites were clean appearing with viable flaps and JPs had small-moderate amount of sanguineous drainage. She remained hemodynamically stable and labs were ok. She was discharged to home on 11/24/23 with [facility] services for JUAN CARLOS drain care. She is to follow up in the office in 1 week. Status at Discharge Functional status at discharge: independent ambulation Overall status at discharge: patient is progressing back to baseline Time Attestation Discharge Coordination Time (in mins): 35 Quality: Safe Use of Opioids Does Pt have an Active Cancer Diagnosis on the Problem List?: No Quality: Stroke Does the patient have a stroke diagnosis?: No Physical Exam Vital Signs: Vital Signs: Last Vital Signs Temp 97.0 F 11/24/23 07:44 Pulse 50 11/24/23 07:44 Resp 18 11/24/23 07:44 BP 119/55 L 11/24/23 07:44 Pulse Ox 98 11/24/23 07:44 O2 Del Method Room Air 11/24/23 07:44 O2 Flow Rate 6 11/22/23 17:35 BMI result Body Mass Index 25.5 Const: General: comfortable, no acute distress and alert Orientation/consciousness: patient oriented x3 Chest: Other: mastectomy incisions clean, flaps viable, [address], 2 in each side b/l Resp: Effort & Inspection: normal respiratory effort Skin: General skin exam: no rashes or lesions noted Neuro: General: patient oriented x3 and moves all extremities DS: Data Data Completed and Pending Pending studies at discharge: Pending at discharge 11/22/23 15:52 Surgical [PTH] Routine Discharge Plan Discharge Anticipated Discharge Date/Time: 11/24/23 08:20 Patient Disposition: Home Health Service Discharge Diagnosis: left breast cancer, right breast atypical ductal hyperplasia Referrals: [facility]ns [Other] - 1 Week Sumit Roberts MD [Physician] - 1 Week Skyla Hodge [Primary Care Provider] - 1 Week Discharge Medications: New oxycodone-acetaminophen [Percocet] 5-325 mg tablet 1 tab PO Q4-6H PRN (Reason: pain) Qty: 25 0RF Rx Instructions: Partial Fill upon patient request. ibuprofen 600 mg tablet 600 mg PO Q6H PRN (Reason: pain) Qty: 30 0RF Continued hydroxyzine HCl 50 mg tablet 50 mg PO QID PRN (Reason: anxiety) famotidine 20 mg tablet 20 mg PO BEDTIME cholecalciferol (vitamin D3) 125 mcg (5,000 unit) capsule 125 mcg DAILY escitalopram oxalate 10 mg tablet 10 mg PO DAILY escitalopram oxalate 20 mg tablet 20 mg PO DAILY melatonin 5 mg tablet 10 mg PO BEDTIME Discharge Orders: Discharge Order (Routine); Ordered 11/24/23 Ordered By: Sumit Roberts Diet: Advance to usual diet Activity on Discharge: No heavy lifting Stand Alone Forms: Patient Portal Discharge page Print Language: [place] Activity Restrictions/Additional Instructions: If the incision area is tender, you may apply an ice pack for short intervals (No more than 20 minutes on, followed by at least 20 minutes off). Do not apply heat. Do not use creams, lotions, or topical antibiotics unless instructed to do so by your surgeon. These can cause infection or allergic reaction. No lifting more than 20 lbs Okay to shower Okay to change dressings with gauze daily empty JUAN CARLOS drains twice a day and record output seprately No strenuous activities Call the office for follow-up next week with Dr Roberts Call Your Doctor If: -Your temperature exceeds 101.5? F -You experience excessive pain or swelling -You have an unexpected reaction to medication -You have excessive bleeding -You experience continued vomiting/nausea -Your incision begins to separate -Your incision shows signs of infection such as increased redness, swelling, excessive pain, drainage (light blood or clear fluid is normal) or heat Care Plan Goals: return to baseline health treat breast cancer Health Concerns: breast cancer Plan of Treatment: pain mgt wound care Assessment: doing very well Discharge Date/Time: 11/24/23 11:08
--- NOTE | 2023-11-25 14:55 | MHC.CM.PN ---
CM RECEIVED A CALL FROM PT TODAY STATING SHE WAS CONCERNED BECAUSE SHE HAD NOT HEARD FROM THE [facility] YET CM CONTACTED [facility], THEY INDICATED THEY HAD TRIED TO REACH THE PT UNSUCCESSFULLY PTS ADDRESS AND PHONE NUMBER WERE CONFIRMED, AND [facility] LIAISON WILL CONTACT HER DIRECTLY
== END 2023-11-24 11:08 | disposition home health service (06) | DRG 362 ==
LOC: HO.SSSA 11:04 → HO.S3 18:33
PROVIDERS: Admitting Provider Physician Assistant Surgical; PCP Nurse Practitioner; Visit Provider Surgery
PROC: 0HTV0ZZ Resection of Bilateral Breast, Open Approach (ICD-10-PCS; CPT 19303; principal; 2023-11-22 11:00)
PROC: 0HTV0ZZ Resection of Bilateral Breast, Open Approach (ICD-10-PCS; 2023-11-22 11:00)
DX: C50.912 Malignant neoplasm of unspecified site of left female breast (principal); D05.01 Lobular carcinoma in situ of right breast; F17.210 Nicotine dependence, cigarettes, uncomplicated; G89.18 Other acute postprocedural pain; Z71.6 Tobacco abuse counseling; Z79.899 Other long term (current) drug therapy
CPT/HCPCS: 36415; 80048; 85025; 88307; 88341; 88342; 88360; J0131; J0360; J0690; J1170; J1596; J1644; J2250; J2704; J2795; J3010; J7120; Q9968

== ENCOUNTER → 2023-11-22 11:00 | Outpatient (BNV) | payer MEDICAID, SELFPAY | PROVIDERS: Admitting Provider Physician Assistant Surgical; PCP Nurse Practitioner; Visit Provider Physician Assistant Surgical | DX: C50.912 Malignant neoplasm of unspecified site of left female breast (principal); Z40.01 Encounter for prophylactic removal of breast | CPT/HCPCS: 19303; 38525; 38900; 99024; 99499; G0180 ==

== ENCOUNTER → 2023-11-22 | Outpatient (REF) | payer MEDICAID, SELFPAY ==
--- NOTE | ~2023-11-22 | NM_ITS ---
EXAMINATION: NM LYMPH SCINTIGRAPHY, BILATERAL CLINICAL INFORMATION: Right breast focus of atypical ductal hyperplasia. Left breast invasive ductal carcinoma grade 2 anterior in location, with extension on MRI approximately 2.8 cm posterior to the main tumor site. Patient prefers bilateral mastectomy upon discussion with Dr. Roberts. COMPARISON: None available. Correlation with MRI breasts 09/25/2023, ultrasound left breast to 08/28/2023, and 11/30/2023. TECHNIQUE: A total of 1.0 mCi technetium 99m-lymphoseek was injected into both breasts after being into 0.125 mCi aliquots, and injected intradermally into both areolar complexes at 12:00, 3:00, 6:00, and 9:00 axes. FINDINGS: At 30 minutes, strong activity is noted at the injection sites in the periareolar regions, and numerous lymph nodes are noted in both breasts left greater than right. Approximate 6 lymph nodes are noted in the left axillary region, and 3 lymph nodes are noted in the right axillary region. NM/NM sentinel node w imaging IMPRESSION: Excellent visualization and activity within bilateral sentinel nodes.
== END ==
LOC: HO.NUCMED
PROVIDERS: PCP Nurse Practitioner; Visit Provider Surgery
DX: N60.91 Unspecified benign mammary dysplasia of right breast (principal); C50.912 Malignant neoplasm of unspecified site of left female breast
CPT/HCPCS: 78195; A9520

== ENCOUNTER 2023-11-30 08:45 | Outpatient (AMB) | payer MEDICAID, SELFPAY ==
--- NOTE | 2023-11-30 08:47 | A.OFFVIS_ITS ---
Intake Visit Reasons: s/p bilateral breast mastectomy Intake Note: This patient presents for a post-op assessment status post bilateral breast mastectomy. Patient c/o; reports no breast complaints. Outside Energy Sales Representatives Required: Yes Outside Energy Sales Representatives Language: Steam And Gas Turbine Assembler Name: Rivera Information Interpreted: non-clinical & clinical Accompanied by: Self / Same As Patient Allergies No Known Allergies Allergy (Unverified 11/30/23 08:52) HPI HPI s/p bilateral breast mastectomy: Details: She underwent bilateral mastectomy and SLN biopsy last November 23, 2023. She is doing well at home and denies complaints. She says she has about 30-45 cc of output on all 4 drains daily although she did not write this down. [facility] Medical History 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 Breast mass, right Invasive ductal carcinoma of breast Left breast mass Surgical History History of removal of ovarian cyst Family History Maternal Aunt Breast cancer Maternal Uncle Lung cancer Social History Household Members: Family Housing: House Do you presently have visiting nurse or other home services: No Patient Tobacco Use Status: Current everyday Tobacco user Tobacco use type: Cigarette Cigarette Packs Per Day: 0.3 Cigarettes Per Day: 6.0 e-Cigarette/Vaping Use: Never Used Second Hand Smoke Exposure: No Substance Use Type: Marijuana service: No Current occupational status: employed Review of Systems Const Denies chills and Denies fever(s) Card Denies chest pain, Denies dyspnea and Denies dyspnea on exertion Resp Denies cough, Denies dyspnea and Denies dyspnea on exertion GI Denies hematochezia and Denies change in bowel habits Denies hematuria Musc Denies back pain and Denies limited range of motion Neuro Denies focal weakness and Denies convulsions Psych Denies depression and Denies mood swings Physical Exam Const General: comfortable and no acute distress Chest Other: mastectomy sites clean, healoing well, flaps viable, all 4 JUAN CARLOS drains with about 20 cc of serosanguinous fluid Assessment & Plan Assessment & Plan (1) S/P bilateral mastectomy: Code(s): Z90.13 - Acquired absence of bilateral breasts and nipples Category: Surgical Plan: She is doing well. All flaps are viable. I removed the on the upper flaps. I plan to remove the drains on the lower flaps next week. She has good pain control. She says she is feeling well overall. Her full path report is still pending. I will review this when this is back and discuss this with her hopefully next week. Coding Level of Care Code Global (60056) Diagnoses S/P bilateral mastectomy Z90.13
== END 2023-11-30 09:20 | disposition home or self-care (01) ==
PROVIDERS: PCP Nurse Practitioner; Visit Provider Surgery
DX: Z90.13 Acquired absence of bilateral breasts and nipples (principal)
CPT/HCPCS: 99024

== ENCOUNTER → 2023-11-30 08:45 | Outpatient (BNVA) | payer MEDICAID, SELFPAY | PROVIDERS: PCP Nurse Practitioner; Visit Provider Surgery | DX: Z90.13 Acquired absence of bilateral breasts and nipples (principal) | CPT/HCPCS: 99212 ==

== ENCOUNTER 2023-12-06 10:26 | Outpatient (AMB) | payer MEDICAID, SELFPAY ==
--- NOTE | 2023-12-06 10:52 | MHC.OFFVIS ---
Intake Visit Reasons: S/P bilateral mastectomy, sn bx Intake Note: This patient presents for a post-op follow-up assessment status post bilateral mastectomy, sn bx. Patient c/o; reports no complaints. Commuter Pilot Required: Yes Commuter Pilot Language: Waste Handling Technician Name: Rivera Information Interpreted: non-clinical & clinical Accompanied by: Self / Same As Patient Allergies No Known Allergies Allergy (Unverified 12/06/23 10:55) HPI HPI S/P bilateral mastectomy, sn bx: Details: She underwent bilateral mastectomy and SLN biopsy last November 23, 2023. I had removed the drains from the superior flaps on both sides last week. She has had minimal output from both the remaining drains. She records about 15 cc a day for both sides She denies any new complaints. [facility] Medical History 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 Breast mass, right Invasive ductal carcinoma of breast Left breast mass Surgical History History of bilateral mastectomy (~11/22/23) History of removal of ovarian cyst Family History Maternal Aunt Breast cancer Maternal Uncle Lung cancer Social History Household Members: Family Housing: House Do you presently have visiting nurse or other home services: No Patient Tobacco Use Status: Current everyday Tobacco user Tobacco use type: Cigarette Cigarette Packs Per Day: 0.3 Cigarettes Per Day: 6.0 e-Cigarette/Vaping Use: Never Used Second Hand Smoke Exposure: No Substance Use Type: Marijuana service: No Current occupational status: employed Review of Systems Const Denies chills and Denies fever(s) Card Denies chest pain, Denies dyspnea and Denies dyspnea on exertion Resp Denies cough, Denies dyspnea and Denies dyspnea on exertion GI Denies hematochezia and Denies change in bowel habits Denies hematuria Musc Denies back pain and Denies limited range of motion Neuro Denies focal weakness and Denies convulsions Psych Denies depression and Denies mood swings Physical Exam Const General: comfortable and no acute distress Chest Other: Both mastectomy sites are well healed, not infected, with minimal output from the JUAN CARLOS drains on the inferior flaps. The flaps are viable Assessment & Plan Assessment & Plan (1) S/P bilateral mastectomy: Code(s): Z90.13 - Acquired absence of bilateral breasts and nipples Category: Surgical Plan: I removed the last 2 drains. Her incisions are healing well. The flaps are viable. I will see her again in the office in about a month for another wound check I reminded her to make sure that she has a follow-up with her oncologist. Her final path report shows invasive ductal carcinoma on both the left and right side with margins negative. She has a T2 N0 lesion on the left and a T2 N0 lesion on the right. Coding Level of Care Code Global (60776) Diagnoses S/P bilateral mastectomy Z90.13
== END 2023-12-06 11:13 | disposition home or self-care (01) ==
PROVIDERS: PCP Nurse Practitioner; Visit Provider Surgery
DX: Z90.13 Acquired absence of bilateral breasts and nipples (principal)
CPT/HCPCS: 99024

== ENCOUNTER → 2023-12-06 10:26 | Outpatient (BNVA) | payer MEDICAID, SELFPAY | PROVIDERS: PCP Nurse Practitioner; Visit Provider Surgery | DX: Z90.13 Acquired absence of bilateral breasts and nipples (principal); C50.912 Malignant neoplasm of unspecified site of left female breast; C50.911 Malignant neoplasm of unspecified site of right female breast; N60.91 Unspecified benign mammary dysplasia of right breast | CPT/HCPCS: 99212 ==

== ENCOUNTER 2023-12-21 11:22 | Outpatient (AMB) | payer MEDICAID, SELFPAY ==
--- NOTE | 2023-12-21 11:25 | A.OFFVIS_ITS ---
Intake Visit Reasons: Lt br wound check Intake Note: This patient presents for a left breast wound check status post bilateral mastectomy. Patient c/o; reports black scab left breast surgical site, reports no fever. Spiritual Care Coordinator Required: Yes Spiritual Care Coordinator Language: Supervisor Phosphorus Processing Name: Rivera Information Interpreted: non-clinical & clinical Accompanied by: Self / Same As Patient Allergies No Known Allergies Allergy (Unverified 12/21/23 11:30) HPI HPI Lt br wound check: Details: She is here for follow-up after bilateral mastectomy and sentinel biopsy. She has T2 N0 adhesions on both sides. She denies any new complaints. She describes some numbness on both chest starr. [facility] Medical History 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 Breast mass, right Invasive ductal carcinoma of breast Left breast mass Surgical History History of bilateral mastectomy (~11/22/23) History of removal of ovarian cyst Family History Maternal Aunt Breast cancer Maternal Uncle Lung cancer Social History Household Members: Family Housing: House Do you presently have visiting nurse or other home services: No Patient Tobacco Use Status: Current everyday Tobacco user Tobacco use type: Cigarette Cigarette Packs Per Day: 0.3 Cigarettes Per Day: 6.0 e-Cigarette/Vaping Use: Never Used Second Hand Smoke Exposure: No Substance Use Type: Marijuana service: No Current occupational status: employed Review of Systems Const Denies chills and Denies fever(s) Card Denies chest pain, Denies dyspnea and Denies dyspnea on exertion Resp Denies cough, Denies dyspnea and Denies dyspnea on exertion GI Denies hematochezia and Denies change in bowel habits Denies hematuria Musc Denies back pain and Denies limited range of motion Neuro Denies focal weakness and Denies convulsions Psych Denies depression and Denies mood swings Physical Exam Const General: comfortable and no acute distress Chest Other: Mastectomy sites are both well healed note of some scabbing on the incision on the left side, no flap necrosis Resp Effort & Inspection: normal respiratory effort Assessment & Plan Assessment & Plan (1) S/P bilateral mastectomy: Code(s): Z90.13 - Acquired absence of bilateral breasts and nipples Category: Surgical Plan: Her incisions are well healed. I removed some of the scabbing on the left mastectomy site. She is to continue to follow up with her oncologist. I will see her in the office in about a month for another wound check. Coding Level of Care Code Global (55944) Diagnoses S/P bilateral mastectomy Z90.13
== END 2023-12-21 11:49 | disposition home or self-care (01) ==
PROVIDERS: PCP Nurse Practitioner; Visit Provider Surgery
DX: Z90.13 Acquired absence of bilateral breasts and nipples (principal)
CPT/HCPCS: 99024

== ENCOUNTER → 2023-12-21 11:22 | Outpatient (BNVA) | payer MEDICAID, SELFPAY | PROVIDERS: PCP Nurse Practitioner; Visit Provider Surgery | DX: Z48.1 Encounter for planned postprocedural wound closure (principal); Z90.13 Acquired absence of bilateral breasts and nipples | CPT/HCPCS: 99212 ==

== ENCOUNTER 2023-12-26 13:55 | Outpatient (REF) | payer MEDICAID, SELFPAY ==
[2023-12-26 16:07] LABS: MANUAL DIFF FLAG NO
[2023-12-26 16:14] LABS: Basophils Percent Auto 0.6 % (0-2); Eosinophils Absolute Auto 0.2 X10*3/uL (0.0-0.4); Eosinophils Percent Auto 3.5 % (0-4); Hematocrit 36.4 % (37.0-47.0); Hemoglobin 11.5 g/dl (12.0-16.0); Imm Gran Abs Auto 0.04 X10*3/uL (0.00-0.03); Imm Gran Pct Auto 0.6 % (0.0-0.4); Lymphocytes Percent Auto 32.1 % (20-40); Mean Corpuscular HGB Conc 31.6 g/dl (31.0-35.0); Mean Corpuscular Hemoglobin 28.3 pg (27.0-33.0); Mean Corpuscular Volume 89.4 fL (80.0-98.0); Mean Platelet Volume 11.3 fL (9.4-12.3); Monocytes Absolute Auto 0.5 X10*3/uL (0.1-1.2); Monocytes Percent Auto 7.2 % (2-11); Neutrophils Absolute Auto 3.5 x10*3/uL (2.0-8.3); Platelet Count 293 X10*3/uL (160-400); Red Blood Count 4.07 X10*6/uL (4.20-5.50); Red Cell Distribution Width 13.4 % (11.0-16.0); White Blood Count 6.3 X10*3/uL (4.8-10.8)
[2023-12-26 16:50] LABS: TSH reflex Free T4 0.96 uIU/mL (0.32-4.0)
== END 2023-12-26 13:56 | disposition home or self-care (01) ==
LOC: HO.HHCL 13:55
PROVIDERS: Visit Provider Nurse Practitioner
DX: R53.83 Other fatigue (principal)
CPT/HCPCS: 36415; 84443; 85025

== ENCOUNTER 2024-01-08 13:45 | Outpatient (AMB) | payer MEDICAID, SELFPAY ==
--- NOTE | 2024-01-08 13:46 | MHC.OFFVIS ---
Vital Signs 01/08/24 13:49 Height 5 ft 3 in Weight 143 lb 11.862 oz BMI 25.5 Intake Visit Reasons: one month s/p bilateral mastectomy, sn bx Intake Note: This patient presents for a one month follow-up status post bilateral mastectomy. Patient c/o; reports has a black scab and had a white spot last week. Solar Energy Installation Manager Required: Yes Solar Energy Installation Manager Language: Setswana Information Interpreted: non-clinical & clinical Accompanied by: Self / Same As Patient Allergies No Known Allergies Allergy (Unverified 01/08/24 13:59) HPI HPI one month s/p bilateral mastectomy, sn bx: Details: She continues to do well post mastectomy. She describes some occasional scanty drainage from a small area on the left mastectomy site but there is no evidence of any infection. She has been seeing Dr. Couch of Oncology and she is currently on letrozole. [facility] Medical History 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 Breast mass, right Invasive ductal carcinoma of breast Left breast mass Surgical History History of bilateral mastectomy (~11/22/23) History of removal of ovarian cyst Family History Maternal Aunt Breast cancer Maternal Uncle Lung cancer Social History Household Members: Family Housing: House Do you presently have visiting nurse or other home services: No Patient Tobacco Use Status: Current everyday Tobacco user Tobacco use type: Cigarette Cigarette Packs Per Day: 0.3 Cigarettes Per Day: 6.0 e-Cigarette/Vaping Use: Never Used Second Hand Smoke Exposure: No Substance Use Type: Marijuana service: No Current occupational status: employed Review of Systems Const Denies chills and Denies fever(s) Card Denies chest pain Resp Denies cough Physical Exam Vital Signs: BMI result Body Mass Index 25.5 Const General: comfortable and no acute distress Chest Other: Bilateral mastectomy sites are both well healed, not infected, no axillary lymphadenopathy Assessment & Plan Assessment & Plan (1) S/P bilateral mastectomy: Code(s): Z90.13 - Acquired absence of bilateral breasts and nipples Category: Surgical Plan: She continues to do well. Both sites are well healing. I reminded her to make sure she continues to see Dr. Couch of Oncology. I will see her in the office in about 6 months for another oncology follow-up visit for her invasive ductal carcinoma, T2 N0 the left breast. Coding Level of Care Code Global (01710) Diagnoses S/P bilateral mastectomy Z90.13
[2024-01-08 13:49] VITALS: BMI 25.5
== END 2024-01-08 14:11 | disposition home or self-care (01) ==
PROVIDERS: PCP Nurse Practitioner; Visit Provider Surgery
DX: Z90.13 Acquired absence of bilateral breasts and nipples (principal)
CPT/HCPCS: 99024

== ENCOUNTER → 2024-01-08 13:45 | Outpatient (BNVA) | payer MEDICAID, SELFPAY | PROVIDERS: PCP Nurse Practitioner; Visit Provider Surgery | DX: Z90.13 Acquired absence of bilateral breasts and nipples (principal) | CPT/HCPCS: 99212 ==

== ENCOUNTER 2024-02-15 09:30 | Outpatient (AMB) | payer MEDICAID, SELFPAY ==
--- NOTE | 2024-02-15 09:30 | MHC.OFFVIS ---
Vital Signs 02/15/24 09:34 Height 5 ft 3 in Intake Visit Reasons: under left breast redness Intake Note: This patient presents for a wound check assessment, status post bilateral mastectomy. Pt c/o; reports rash under bra line, redness, swelling. Warp Bleaching Vat Tender Required: Yes Warp Bleaching Vat Tender Language: Production Superintendent Hydro Services: Warp Bleaching Vat Tender Present Warp Bleaching Vat Tender Name: Rivera Information Interpreted: non-clinical & clinical Accompanied by: Self / Same As Patient Allergies No Known Allergies Allergy (Unverified 02/15/24 09:35) Medication List - Last Reconciled 02/15/24 by Sumit Roberts MD cholecalciferol (vitamin D3) 125 mcg DAILY escitalopram oxalate 20 mg PO DAILY escitalopram oxalate 10 mg PO DAILY famotidine 20 mg PO BEDTIME hydroxyzine HCl 50 mg PO QID PRN ibuprofen 600 mg PO Q6H PRN letrozole 2.5 mg PO DAILY mastectomy bra (bra, mastectomy) As Directed melatonin 10 mg PO BEDTIME oxycodone-acetaminophen 5-325 mg (Percocet) 1 tab PO TID PRN Prosthesis, breast (Breast prosthesis) As Directed HPI HPI under left breast redness: Details: She had undergone bilateral mastectomy for left breast invasive ductal carcinoma and atypical ductal carcinoma of the right breast. She is doing well postoperatively Her path report actually showed an invasive carcinoma as well in the right breast, with ductal and lobular features. She is being followed by Dr. Hernandez. She is currently on letrozole for hormonal treatment. She had wanted to be seen for a wound check as she was concerned that there may be a rash underneath her bra line. [facility] Medical History 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 Breast mass, right Invasive ductal carcinoma of breast Left breast mass Surgical History History of bilateral mastectomy (~11/22/23) History of removal of ovarian cyst Family History Maternal Aunt Breast cancer Maternal Uncle Lung cancer Social History Household Members: Family Housing: House Do you presently have visiting nurse or other home services: No Patient Tobacco Use Status: Current everyday Tobacco user Tobacco use type: Cigarette Cigarette Packs Per Day: 0.3 Cigarettes Per Day: 6.0 e-Cigarette/Vaping Use: Never Used Second Hand Smoke Exposure: No Substance Use Type: Marijuana service: No Current occupational status: employed Review of Systems Const Denies chills and Denies fever(s) Card Denies chest pain, Denies dyspnea and Denies dyspnea on exertion Resp Denies cough, Denies dyspnea and Denies dyspnea on exertion GI Denies hematochezia and Denies change in bowel habits Denies hematuria Musc Denies back pain and Denies limited range of motion Neuro Denies focal weakness and Denies convulsions Psych Denies depression and Denies mood swings Physical Exam Const General: comfortable and no acute distress Chest Other: Both mastectomy sites are well healed, not infected, no palpable masses, no axillary lymphadenopathy, no skin changes, no rash Assessment & Plan Assessment & Plan (1) S/P bilateral mastectomy: Code(s): Z90.13 - Acquired absence of bilateral breasts and nipples Category: Surgical Plan: She is actually doing very well. Both mastectomy sites are well healed. I do not feel any masses and I do not see any rash or skin changes. Her final path report shows invasive ductal carcinoma, T2 N0 on the left, ER/NE positive, HER2 negative. The right breast, she also had invasive carcinoma with ductal and lobular features, T1 N0, ER/NE positive, HER2 negative. She will see me in the office again in about 6 months. Coding Level of Care Code Global (33001) Diagnoses S/P bilateral mastectomy Z90.13
== END 2024-02-15 09:41 | disposition home or self-care (01) ==
LOC: HO.HGS 09:30
PROVIDERS: PCP Nurse Practitioner; Visit Provider Surgery
DX: Z90.13 Acquired absence of bilateral breasts and nipples (principal)
CPT/HCPCS: 99024

== ENCOUNTER → 2024-02-15 09:30 | Outpatient (BNVA) | payer MEDICAID, SELFPAY | PROVIDERS: PCP Nurse Practitioner; Visit Provider Surgery | DX: C50.912 Malignant neoplasm of unspecified site of left female breast (principal); C50.911 Malignant neoplasm of unspecified site of right female breast; Z17.0 Estrogen receptor positive status [ER+]; Z90.13 Acquired absence of bilateral breasts and nipples; Z79.811 Long term (current) use of aromatase inhibitors | CPT/HCPCS: 99212 ==

== ENCOUNTER 2024-03-05 08:54 | Emergency (ER) | payer MEDICAID, SELFPAY ==
--- NOTE | ~2024-03-05 | CT_ITS ---
EXAMINATION: CT ABDOMEN AND PELVIS WITHOUT CONTRAST CLINICAL INFORMATION: Diffuse abdominal pain, nausea, vomiting and diarrhea COMPARISON: None available. TECHNIQUE: Multidetector volumetric imaging was performed from the superior aspect of the liver through the pubic symphysis. Sagittal and coronal reformatted images were obtained on the technologist's workstation. This CT examination was performed using dose optimization techniques as appropriate, variously including the following: *Automated exposure control *Adjustment of mA and/or kV according to patient size (this includes techniques or standardized protocols for targeted exams where dose is matched to indication/reason for exam; i.e. extremities or head) *Use of iterative reconstruction technique DLP: 864 mGy-cm FINDINGS: INTERNET DATABASE SPECIALIST: Multiple dilated small bowel loops and colonic air down to the rectum. LUNG BASES: The visualized lung bases are unremarkable. LIVER, GALLBLADDER, AND BILIARY TREE: The liver is normal in size, shape, and attenuation. No focal hepatic lesion or biliary ductal dilatation is present. The gallbladder is unremarkable with no evidence of radiopaque gallstones, gallbladder wall thickening, or obvious pericholecystic inflammatory changes. PANCREAS: Unremarkable. SPLEEN: Unremarkable. ADRENAL GLANDS: Unremarkable. KIDNEYS AND URETERS: The kidneys are normal in size, shape, and attenuation. No hydronephrosis, hydroureter, or calculi seen. No perinephric stranding. BLADDER: Unremarkable. GASTROINTESTINAL TRACT: Stomach. Multiple dilated air and fluid-filled small bowel loops without zone of transition. Prominent air-filled colon. ABDOMINAL WALL: No significant hernia is appreciated. LYMPH NODES: Normal. VASCULAR: Nonaneurysmal aorta. Small caliber inferior vena cava. PELVIC VISCERA: Unremarkable. OSSEOUS STRUCTURES: Unremarkable. CT/CT abdomen pelvis wo IV con IMPRESSION: Dilated fluid and air-filled small bowel loops without definite zone of transition, question ileus. Small caliber inferior vena cava, question dehydration, correlate with volume status. Fleischner guidelines were followed.
[2024-03-05 09:02] VITALS: BP 158/96; PULSE 16; O2SAT 97
[2024-03-05 09:04] VITALS: BP 148/79; PULSE 58; RESP 18; TEMP 36.6; O2SAT 97; BMI 25.3
[2024-03-05 10:22] LABS: MANUAL DIFF FLAG NO
[2024-03-05 10:23] LABS: Basophils Absolute Auto 0.1 X10*3/uL (0.0-0.2); Basophils Percent Auto 0.5 % (0-2); Eosinophils Absolute Auto 0.1 X10*3/uL (0.0-0.4); Eosinophils Percent Auto 1.1 % (0-4); Hematocrit 42.7 % (37.0-47.0); Hemoglobin 13.9 g/dl (12.0-16.0); Imm Gran Abs Auto 0.04 X10*3/uL (0.00-0.03); Imm Gran Pct Auto 0.4 % (0.0-0.4); Lymphocytes Absolute Auto 2.1 X10*3/uL (1.2-4.9); Lymphocytes Percent Auto 20.4 % (20-40); Mean Corpuscular HGB Conc 32.6 g/dl (31.0-35.0); Mean Corpuscular Hemoglobin 28.3 pg (27.0-33.0); Mean Platelet Volume 10.8 fL (9.4-12.3); Monocytes Absolute Auto 0.5 X10*3/uL (0.1-1.2); Monocytes Percent Auto 5.2 % (2-11); Neutrophils Absolute Auto 7.6 x10*3/uL (2.0-8.3); Neutrophils Percent Auto 72.4 % (45-73); Platelet Count 335 X10*3/uL (160-400); Red Blood Count 4.91 X10*6/uL (4.20-5.50); Red Cell Distribution Width 12.8 % (11.0-16.0); White Blood Count 10.5 X10*3/uL (4.8-10.8)
[2024-03-05 10:28] LABS: Appearance Urine Clear; Color Urine Yellow; Glucose Urine UA Negative (Negative); Leukocyte Esterase Urine Negative (Negative); Nitrite Urine Negative (Negative); PH 5.5 (5.0-9.0); UMIC TRIGGER UACC YES; UPreg QC Valid YES; Urine Blood Trace (Negative); Urine Ketones Negative (Negative); Urine Pregnancy NEGATIVE (NEGATIVE); Urine Protein Negative (Neg-Trace)
[2024-03-05 10:32] LABS: Bacteria Urine Trace (None Seen); Hyaline Casts Urine 0-2 /LPF (0-2); WBC Urine 0-5 /HPF (0-5)
[2024-03-05 10:41] LABS: Alanine Aminotransferase 14 U/L (0-31); Albumin Level 4.6 g/dL (3.5-5.0); Alkaline Phosphatase 60 U/L (39-117); Anion Gap 11 (12-20); Aspartate Amino Transferase 17 U/L (5-31); Bilirubin Direct 0.1 mg/dL (0.0-0.5); Bilirubin Total 0.3 mg/dL (0.0-1.0); Blood Urea Nitrogen 15 mg/dL (9-16); Calcium 9.8 mg/dL (8.4-10.2); Carbon Dioxide 27 mmol/L (22-29); Chloride 108 mmol/L (96-108); Creatinine Clr Calc Pharmacy 66.9; Estimated Glomerular Filt Rate > 60; Glucose Random 155 mg/dL (60-115); Lipase 20 U/L (8-78); Potassium 4.5 mmol/L (3.3-5.1); Sodium 141 mmol/L (135-145); Total Protein 8.2 g/dL (6.5-8.0)
[2024-03-05 11:29] VITALS: BP 165/75; PULSE 84; RESP 18; TEMP 36.4; O2SAT 97
--- NOTE | 2024-03-05 11:29 | ED_ITS ---
HPI - Abdominal Pain General Chief Complaint: Abdominal Pain Stated Complaint: ABD PAIN PER EMS Related Data Home Medications ?Medication ?Instructions ?Recorded ?Confirmed cholecalciferol (vitamin D3) 125 125 mcg DAILY 11/22/23 02/15/24 mcg (5,000 unit) capsule escitalopram oxalate 10 mg tablet 10 mg PO DAILY 11/22/23 02/15/24 escitalopram oxalate 20 mg tablet 20 mg PO DAILY 11/22/23 02/15/24 famotidine 20 mg tablet 20 mg PO BEDTIME 11/22/23 02/15/24 hydroxyzine HCl 50 mg tablet 50 mg PO QID PRN anxiety 11/22/23 02/15/24 melatonin 5 mg tablet 10 mg PO BEDTIME 11/22/23 02/15/24 Previous Rx's ?Medication ?Instructions ?Recorded ibuprofen 600 mg tablet 600 mg PO Q6H PRN pain #30 tabs 11/24/23 Prosthesis, breast (Breast #2 ea 12/22/23 prosthesis) letrozole 2.5 mg tablet 2.5 mg PO DAILY #90 tabs 12/22/23 mastectomy bra (bra, mastectomy) #6 ea 12/22/23 oxycodone-acetaminophen 5 mg-325 1 tab PO TID PRN pain #10 tabs 02/12/24 mg tablet (Percocet) Allergies Allergy/AdvReac Type Severity Reaction Status Date / Time No Known Allergies Allergy Verified 03/05/24 09:05 [facility] Past Medical History Medical History 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 Breast mass, right Invasive ductal carcinoma of breast Left breast mass Surgical History History of bilateral mastectomy (~11/22/23) History of removal of ovarian cyst Family History Family History Maternal Aunt Breast cancer Maternal Uncle Lung cancer Social History Social History Household Members: Family Housing: House Do you presently have visiting nurse or other home services: No Patient Tobacco Use Status: Current everyday Tobacco user Tobacco use type: Cigarette Cigarette Packs Per Day: 0.3 Cigarettes Per Day: 6.0 e-Cigarette/Vaping Use: Never Used Second Hand Smoke Exposure: No Substance Use Type: Marijuana Advance Directives: No Do you have a plan to hurt others: No Plan service: No Current occupational status: employed Physical Exam ED Vital Signs: Vital Signs - 24 hr 03/05/24 09:04 03/05/24 11:29 Temperature 98 F 97.5 F Pulse Rate 58 84 Respiratory Rate 18 18 Blood Pressure 148/79 H 165/75 H Pulse Oximetry 97 97 Oxygen Delivery Method Room Air Room Air BMI result Body Mass Index 25.3 Course Course Course Narrative: This is a Rapid Medical Examination (RME) performed by Joseluis Ortiz PA-C in triage. Full HPI, ROS, assessment and treatment plan per primary provider in the Main ED. 58 yo German speaking female presents to the ER for evaluation of diffuse abdominal pain 05/02 that woke her up out of sleep at 530am today. She reports nausea, vomiting x3 and nonbloody diarrhea x4. Diffuse abd tenderness on exam without rebound or guarding. +BS x4. not an acute abdomen on exam. appears uncomfortable however. VS are stable in triage. lab workup is unremarkable upon review. Plan: CT scan of the abd/pelvis Medical Decision Making Lab Data 03/05/24 10:09 03/05/24 10:09 Labs: Lab Results 03/05/24 Range/Units 10:09 WBC 10.5 (4.8-10.8) X10*3/uL RBC 4.91 (4.20-5.50) X10*6/uL Hgb 13.9 (12.0-16.0) g/dl Hct 42.7 (37.0-47.0) % MCV 87.0 (80.0-98.0) fL MCH 28.3 (27.0-33.0) pg MCHC 32.6 (31.0-35.0) g/dl RDW 12.8 (11.0-16.0) % Plt Count 335 (160-400) X10*3/uL MPV 10.8 (9.4-12.3) fL Immature Gran % (Auto) 0.4 (0.0-0.4) % Neut % (Auto) 72.4 (45-73) % Lymph % (Auto) 20.4 (20-40) % [place] % (Auto) 5.2 (2-11) % Eos % (Auto) 1.1 (0-4) % Baso % (Auto) 0.5 (0-2) % Lymph # (Auto) 2.1 (1.2-4.9) X10*3/uL [place] # (Auto) 0.5 (0.1-1.2) X10*3/uL Eos # (Auto) 0.1 (0.0-0.4) X10*3/uL Baso # (Auto) 0.1 (0.0-0.2) X10*3/uL Abs Immat Gran (auto) 0.04 H (0.00-0.03) X10*3/uL Absolute Neuts (auto) 7.6 (2.0-8.3) x10*3/uL Absolute Nucleated RBC 0.000 (0.0-0.012) X10*3/uL Nucleated RBC % (auto) 0.0 (0.0-0.2) /100WBC Sodium 141 (135-145) mmol/L Potassium 4.5 (3.3-5.1) mmol/L Chloride 108 (96-108) mmol/L Carbon Dioxide 27 (22-29) mmol/L Anion Gap 11 L (12-20) BUN 15 (9-16) mg/dL Creatinine 0.83 (0.5-1.4) mg/dL Estim Creat Clear Calc 66.9 Estimated GFR > 60 Random Glucose 155 H (60-115) mg/dL Calcium 9.8 (8.4-10.2) mg/dL Total Bilirubin 0.3 (0.0-1.0) mg/dL Direct Bilirubin 0.1 (0.0-0.5) mg/dL AST 17 (5-31) U/L ALT 14 (0-31) U/L Alkaline Phosphatase 60 (39-117) U/L Total Protein 8.2 H (6.5-8.0) g/dL Albumin 4.6 (3.5-5.0) g/dL Lipase 20 (8-78) U/L Urine Color Yellow Urine Appearance Clear Urine pH 5.5 (5.0-9.0) Ur Specific [place] 1.020 (1.005-1.025) Urine Protein Negative (Neg-Trace) mg/dL Urine Glucose (UA) Negative (Negative) mg/dL Urine Ketones Negative (Negative) mg/dL Urine Blood Trace H (Negative) Urine Nitrite Negative (Negative) Ur Leukocyte Esterase Negative (Negative) Urine RBC 3-5 H (0-2) /HPF Urine WBC 0-5 (0-5) /HPF Ur Squamous Epith Cells 3-5 (0-2) /HPF Urine Bacteria Trace (None Seen) Hyaline Casts 0-2 (0-2) /LPF Urine Test NEGATIVE (NEGATIVE) Discharge Plan Discharge Clinical Impression: Abdominal pain Patient Disposition: Left W/O Completing Treatment Prescriptions: No Action oxycodone-acetaminophen [Percocet] 5-325 mg tablet 1 tab PO TID PRN (Reason: pain) Qty: 10 0RF Rx Instructions: Partial Fill upon patient request. hydroxyzine HCl 50 mg tablet 50 mg PO QID PRN (Reason: anxiety) famotidine 20 mg tablet 20 mg PO BEDTIME cholecalciferol (vitamin D3) 125 mcg (5,000 unit) capsule 125 mcg DAILY escitalopram oxalate 10 mg tablet 10 mg PO DAILY escitalopram oxalate 20 mg tablet 20 mg PO DAILY melatonin 5 mg tablet 10 mg PO BEDTIME ibuprofen 600 mg tablet 600 mg PO Q6H PRN (Reason: pain) Qty: 30 0RF (DME) Breast prosthesis Kit Qty: 2 0RF Rx Instructions: As Directed (DME) bra, mastectomy Crystals Qty: 6 0RF Rx Instructions: As Directed letrozole 2.5 mg Tablet 2.5 mg PO DAILY Qty: 90 3RF Discharge Date/Time: 03/05/24 14:14
--- NOTE | 2024-03-05 14:13 | PC.NURSE ---
noone present in the [facility]. other patients state that she left.
== END 2024-03-05 14:14 | disposition left against medical advice (07) ==
PROVIDERS: Emergency Provider Emergency Medicine
DX: R10.9 Unspecified abdominal pain (principal); F17.210 Nicotine dependence, cigarettes, uncomplicated; Z53.21 Procedure and treatment not carried out due to patient leaving prior to being seen by health care provider
CPT/HCPCS: 36415; 74176; 80048; 80076; 81001; 81025; 83690; 85025; 99281; 99283; 99284

== ENCOUNTER 2024-06-17 14:50 | Outpatient (AMB) | payer MEDICAID, SELFPAY ==
[2024-06-17 14:51] VITALS: BMI 25.7
--- NOTE | 2024-06-17 14:51 | MHC.OFFVIS ---
Vital Signs 06/17/24 14:51 Height 5 ft 3 in Weight 145 lb 0.004 oz BMI 25.7 Intake Visit Reasons: breast follow-up s/p bilateral mastectomy Intake Note: This patient presents for breast examination assessment status bilateral mastectomy. Pt c/o; pain/discomfort. Journeyman Pressman Required: Yes Journeyman Pressman Services: Journeyman Pressman Present Journeyman Pressman Name: Rivera Information Interpreted: non-clinical & clinical Accompanied by: Self / Same As Patient Allergies No Known Allergies Allergy (Verified 06/17/24 14:52) Medication List - Last Reconciled 06/17/24 by Sumit Roberts MD cholecalciferol (vitamin D3) 125 mcg DAILY escitalopram oxalate 20 mg PO DAILY escitalopram oxalate 10 mg PO DAILY famotidine 20 mg PO BEDTIME hydroxyzine HCl 50 mg PO QID PRN ibuprofen 600 mg PO Q6H PRN letrozole 2.5 mg PO DAILY mastectomy bra (bra, mastectomy) As Directed melatonin 10 mg PO BEDTIME oxycodone-acetaminophen 5-325 mg (Percocet) 1 tab PO TID PRN Prosthesis, breast (Breast prosthesis) As Directed HPI HPI breast follow-up s/p bilateral mastectomy: Details: She is here for follow-up after bilateral mastectomy earlier this year. She says she is doing well. She does describe occasional sharp tingling pains on both the left and right chest and axilla. She is on hormonal treatment. She did not undergo chemotherapy. She is being followed closely by the oncologist. 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 Breast mass, right Invasive ductal carcinoma of breast Left breast mass Surgical History History of bilateral mastectomy (~11/22/23) History of removal of ovarian cyst Family History Maternal Aunt Breast cancer Maternal Uncle Lung cancer Social History Household Members: Family Housing: House Do you presently have visiting nurse or other home services: No Patient Tobacco Use Status: Current everyday Tobacco user Tobacco use type: Cigarette Cigarette Packs Per Day: 0.3 Cigarettes Per Day: 6.0 e-Cigarette/Vaping Use: Never Used Second Hand Smoke Exposure: No Substance Use Type: Marijuana service: No Current occupational status: employed Review of Systems Const Denies chills and Denies fever(s) Card Denies chest pain, Denies dyspnea and Denies dyspnea on exertion Resp Denies cough, Denies dyspnea and Denies dyspnea on exertion GI Denies hematochezia and Denies change in bowel habits Denies hematuria Musc Denies back pain and Denies limited range of motion Neuro Denies focal weakness and Denies convulsions Psych Denies depression and Denies mood swings Physical Exam Vital Signs: BMI result Body Mass Index 25.7 Const General: comfortable and no acute distress Chest Other: Palpable masses on both chest starr mastectomy sites, no axillary lymphadenopathy Resp Effort & Inspection: normal respiratory effort GI Palpation (GI): Soft to palpation Assessment & Plan Assessment & Plan (1) S/P bilateral mastectomy: Code(s): Z90.13 - Acquired absence of bilateral breasts and nipples Category: Surgical Plan: She had invasive ductal carcinoma, T2 N0 on the left, ER/AL positive, HER2 negative. The right breast, she also had invasive carcinoma with ductal and lobular features, T1 N0, ER/AL positive, HER2 negative. She is on hormonal treatment. She did not undergo chemotherapy. She is doing well overall Current exam is unremarkable. I will see her again in the office in about 6 months She asked for pain medications in view of her occasional tingling sharp pains on both chest wall. Medications: Refilled oxycodone-acetaminophen 5-325 mg (Percocet) Partial Fill upon patient request. 1 tab PO TID PRN 10 tabs 0RF pain Coding Level of Care Code Est Pt Level 3 (13110) Diagnoses S/P bilateral mastectomy Z90.13
== END 2024-06-17 15:08 | disposition home or self-care (01) ==
PROVIDERS: Visit Provider Surgery
DX: Z90.13 Acquired absence of bilateral breasts and nipples (principal)
CPT/HCPCS: 99213

== ENCOUNTER → 2024-06-17 14:50 | Outpatient (BNVA) | payer MEDICAID, SELFPAY | PROVIDERS: Visit Provider Surgery | DX: C50.912 Malignant neoplasm of unspecified site of left female breast (principal); C50.911 Malignant neoplasm of unspecified site of right female breast; Z79.811 Long term (current) use of aromatase inhibitors; Z17.0 Estrogen receptor positive status [ER+]; Z17.21 Progesterone receptor positive status; Z17.32 Human epidermal growth factor receptor 2 negative status; Z90.13 Acquired absence of bilateral breasts and nipples | CPT/HCPCS: 99212 ==

== ENCOUNTER 2024-06-19 12:41 | Outpatient (REF) | payer MEDICAID, SELFPAY ==
[2024-06-19 13:16] LABS: MANUAL DIFF FLAG NO
[2024-06-19 13:35] LABS: Basophils Absolute Auto 0.1 X10*3/uL (0.0-0.2); Basophils Percent Auto 0.9 % (0-2); Eosinophils Absolute Auto 0.2 X10*3/uL (0.0-0.4); Eosinophils Percent Auto 3.3 % (0-4); Hematocrit 38.2 % (37.0-47.0); Hemoglobin 12.5 g/dl (12.0-16.0); Imm Gran Abs Auto 0.02 X10*3/uL (0.00-0.03); Imm Gran Pct Auto 0.3 % (0.0-0.4); Lymphocytes Absolute Auto 2.9 X10*3/uL (1.2-4.9); Lymphocytes Percent Auto 40.6 % (20-40); Mean Corpuscular HGB Conc 32.7 g/dl (31.0-35.0); Mean Corpuscular Hemoglobin 28.7 pg (27.0-33.0); Mean Corpuscular Volume 87.6 fL (80.0-98.0); Mean Platelet Volume 11.2 fL (9.4-12.3); Monocytes Absolute Auto 0.5 X10*3/uL (0.1-1.2); Monocytes Percent Auto 7.2 % (2-11); Neutrophils Absolute Auto 3.4 x10*3/uL (2.0-8.3); Neutrophils Percent Auto 47.7 % (45-73); Platelet Count 280 X10*3/uL (160-400); Red Blood Count 4.36 X10*6/uL (4.20-5.50); Red Cell Distribution Width 12.8 % (11.0-16.0); White Blood Count 7.1 X10*3/uL (4.8-10.8)
[2024-06-19 14:05] LABS: Alanine Aminotransferase 17 U/L (0-31); Albumin Level 3.8 g/dL (3.5-5.0); Anion Gap 12 (12-20); Aspartate Amino Transferase 20 U/L (5-31); Bilirubin Total 0.2 mg/dL (0.0-1.0); Blood Urea Nitrogen 12 mg/dL (9-16); Calcium 9.2 mg/dL (8.4-10.2); Carbon Dioxide 26 mmol/L (22-29); Chloride 108 mmol/L (96-108); Cholesterol 153 mg/dL (<200); Estimated Glomerular Filt Rate > 60; Glucose Random 107 mg/dL (60-115); HDL Cholesterol 40 mg/dL (>40); LDL Cholesterol Calculated 90 mg/dL (<100); Potassium 4.1 mmol/L (3.3-5.1); Sodium 142 mmol/L (135-145); Total Protein 6.7 g/dL (6.5-8.0); Triglycerides 118 mg/dL (<150)
[2024-06-19 14:35] LABS: Alkaline Phosphatase 52 U/L (39-117)
[2024-06-20 08:29] LABS: HBS Num1 89.84 mIU/mL (0-7.99); HBc Num1 0.05 S/CO (0.00-0.79); HBsAGNum1 0.36 S/CO (0.00-0.99); HIV AB/AG Nonreactive (Nonreactive); HIV Num 1 0.05 S/CO (0.00-0.99); Hepatitis B Core Antibody Nonreactive (Nonreactive); Hepatitis B Surface Antigen Negative (Negative); ~HepC Num1 0.09 S/CO (0.00-0.79); ~Hepatitis B Surface Antibody REACTIVE (Nonreactive); ~Hepatitis C Antibody Nonreactive (Nonreactive)
== END 2024-06-19 12:42 | disposition home or self-care (01) ==
LOC: HO.HHCL 12:41
PROVIDERS: Internal Medicine Medical Oncology; Visit Provider Nurse Practitioner
DX: Z11.4 Encounter for screening for human immunodeficiency virus [HIV] (principal); C50.919 Malignant neoplasm of unspecified site of unspecified female breast; E66.3 Overweight
CPT/HCPCS: 36415; 80053; 80061; 85025; 86704; 86706; 86803; 87340; 87389

== ENCOUNTER 2024-08-12 10:36 | Outpatient (AMB) | payer MEDICAID, SELFPAY ==
--- NOTE | 2024-08-12 10:37 | A.OFFVIS_ITS ---
Vital Signs 08/12/24 10:42 Height 5 ft 3 in Weight 137 lb 8 oz BMI 24.4 Intake Visit Reasons: 6 month breast exam, redness Intake Note: This patient presents for 6 month breast exam. Pt c/o; reports she feels she has lost some weight because she had not had an appetite, reports bone pains. Manager Of Community Relations Required: Yes Manager Of Community Relations Language: Supervisor Major Appliance Assembly Services: Manager Of Community Relations Present (Rivera) Information Interpreted: non-clinical & clinical Accompanied by: Self / Same As Patient Allergies No Known Allergies Allergy (Verified 08/12/24 10:43) Medication List - Last Reconciled 08/12/24 by Sumit Roberts MD cholecalciferol (vitamin D3) 125 mcg DAILY escitalopram oxalate 20 mg PO DAILY escitalopram oxalate 10 mg PO DAILY famotidine 20 mg PO BEDTIME hydroxyzine HCl 50 mg PO QID PRN ibuprofen 600 mg PO Q6H PRN letrozole 2.5 mg PO DAILY mastectomy bra (bra, mastectomy) As Directed melatonin 10 mg PO BEDTIME oxycodone-acetaminophen 5-325 mg (Percocet) 1 tab PO TID PRN Prosthesis, breast (Breast prosthesis) As Directed HPI HPI 6 month breast exam, redness: Details: She underwent bilateral mastectomy and SLN biopsy last November 23, 2023. She is doing well at home and denies complaints. She has pain following Dr. Hernandez. She is on letrozole. Her path report showed invasive ductal carcinoma, T2 N0 on the left, ER/PA positive, HER2 negative. On the right breast, she also had invasive carcinoma with ductal and lobular features, T1 N0, ER/PA positive, HER2 negative. 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 Breast mass, right Invasive ductal carcinoma of breast Left breast mass Surgical History History of bilateral mastectomy (~11/22/23) History of removal of ovarian cyst Family History Maternal Aunt Breast cancer Maternal Uncle Lung cancer Social History Household Members: Family Housing: House Do you presently have visiting nurse or other home services: No Patient Tobacco Use Status: Current everyday Tobacco user Tobacco use type: Cigarette Cigarette Packs Per Day: 0.3 Cigarettes Per Day: 6.0 e-Cigarette/Vaping Use: Never Used Second Hand Smoke Exposure: No Substance Use Type: Marijuana service: No Current occupational status: employed Review of Systems Const Denies chills and Denies fever(s) Card Denies chest pain, Denies dyspnea and Denies dyspnea on exertion Resp Denies cough, Denies dyspnea and Denies dyspnea on exertion GI Denies hematochezia and Denies change in bowel habits Denies hematuria Musc Denies back pain and Denies limited range of motion Neuro Denies focal weakness and Denies convulsions Psych Denies depression and Denies mood swings Physical Exam Const General: comfortable and no acute distress Orientation/consciousness: patient oriented x3 Neck Neck: Yes no lymphadenopathy Chest Other: No palpable masses on the chest wall on both mastectomy sites, no axillary lymphadenopathy Resp Auscultation: clear to auscultation bilaterally Cardio Rhythm: regular rhythm GI Palpation (GI): Soft to palpation, nontender and no guarding Neuro General: patient oriented x3 Assessment & Plan Assessment & Plan (1) History of bilateral breast cancer: Code(s): Z85.3 - Personal history of malignant neoplasm of breast Category: Medical Plan: She continues to do well. I do not feel any masses on the chest wall nor on the axilla She is currently on letrozole. She is to continue to follow up with Oncology. I will see her again in the office in about 6 months to do an exam. Coding Level of Care Code Est Pt Level 3 (12452) Diagnoses History of bilateral breast cancer Z85.3
[2024-08-12 10:42] VITALS: BMI 24.4
== END 2024-08-12 10:47 | disposition home or self-care (01) ==
PROVIDERS: Visit Provider Surgery
DX: Z85.3 Personal history of malignant neoplasm of breast (principal)
CPT/HCPCS: 99213

== ENCOUNTER → 2024-08-12 10:36 | Outpatient (BNVA) | payer MEDICAID, SELFPAY | PROVIDERS: Visit Provider Surgery | DX: Z85.3 Personal history of malignant neoplasm of breast (principal) | CPT/HCPCS: 99212 ==

== ENCOUNTER 2024-12-26 12:59 | Outpatient (AMB) | payer MEDICAID, SELFPAY ==
--- NOTE | 2024-12-26 13:01 | A.OFFVIS_ITS ---
Vital Signs 12/26/24 13:06 Height 5 ft 3 in Weight 130 lb BMI 23.0 BP 121/61 Blood Pressure Location Rt brachial Position Sitting Pulse 71 Intake Visit Reasons: 6m breast follow up s/p bilateral mastectomy Intake Note: Patient here for 6m breast follow up s/p bilateral mastectomy. On Letrozole. Patient c/o: no concerns. Denies lumps, masses on chest. Follow up w/ oncology 12-26-2024. 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 [employer] Required: No Accompanied by: Self / Same As Patient Allergies No Known Allergies Allergy (Verified 12/26/24 13:02) Medication List - Last Reconciled 12/26/24 by Sumit Roberts MD cholecalciferol (vitamin D3) 125 mcg DAILY escitalopram oxalate 20 mg PO DAILY escitalopram oxalate 10 mg PO DAILY famotidine 20 mg PO BEDTIME hydroxyzine HCl 50 mg PO QID PRN ibuprofen 600 mg PO Q6H PRN letrozole 2.5 mg PO DAILY mastectomy bra (bra, mastectomy) As Directed melatonin 10 mg PO BEDTIME oxycodone-acetaminophen 5-325 mg (Percocet) 1 tab PO TID PRN Prosthesis, breast (Breast prosthesis) As Directed HPI HPI 6m breast follow up s/p bilateral mastectomy: Details: She underwent bilateral mastectomy and SLN biopsy last November 23, 2023. She is doing well at home and denies complaints. She continues to follow Dr. Hernandez and is still on letrozole. Her path report showed invasive ductal carcinoma, T2 N0 on the left, ER/CA positive, HER2 negative. On the right breast, she also had invasive carcinoma with ductal and lobular features, T1 N0, ER/CA positive, HER2 negative. She says she is feeling well overall except that she says that she does not have a good appetite. 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 Breast mass, right Invasive ductal carcinoma of breast Left breast mass Surgical History History of bilateral mastectomy (~11/22/23) History of removal of ovarian cyst Family History Maternal Aunt Breast cancer Maternal Uncle Lung cancer Social History Household Members: Family Housing: House Do you presently have visiting nurse or other home services: No Patient Tobacco Use Status: Current everyday Tobacco user Tobacco use type: Cigarette Cigarette Packs Per Day: 0.3 Cigarettes Per Day: 6.0 e-Cigarette/Vaping Use: Never Used Second Hand Smoke Exposure: No Substance Use Type: Marijuana service: No Current occupational status: employed Review of Systems Const Denies chills and Denies fever(s) Card Denies chest pain at rest and Denies dyspnea Resp Denies dyspnea GI Denies abdominal pain Physical Exam Vital Signs: Last Vital Signs Pulse 71 12/26/24 13:06 BP 121/61 12/26/24 13:06 BMI result Body Mass Index 23.0 Const General: comfortable and no acute distress Chest Other: No palpable masses in the chest wall on both mastectomy sites, no axillary lymphadenopathy Resp Effort & Inspection: normal respiratory effort Cardio Rate: regular rate GI Palpation (GI): Soft to palpation and nontender Assessment & Plan Assessment & Plan (1) History of breast cancer: Code(s): Z85.3 - Personal history of malignant neoplasm of breast Category: Medical Plan: She has a history of bilateral breast cancer and had mastectomy and sentinel biopsy last year. She continues to do well. She is on letrozole and did not need any adjuvant chemotherapy Current exam does not suggest any masses on the chest wall nor in the axilla I will see her again in about 6 months. She is interested in breast reconstruction so we will assist her with regards to this I reminded her to continue to follow with Dr. Hernandez. Coding Level of Care Code Est Pt Level 3 (78019) Complex EM visit Add On G2211 Diagnoses History of breast cancer Z85.3
[2024-12-26 13:06] VITALS: BP 121/61; PULSE 71; BMI 23.0
--- OUTSIDE RECORDS SUMMARY | 2024-12-26 15:05 | XMS_ITS | Encounter Summary ---
Author Organization [employer] Address [address] [place] [address] Care Team Providers Care Behavioral Health Counselor Name Role Phone Skyla Hodge NP Primary Care Provider [phone] Reason for Visit * Reason Onset Date Comments appt 11/08/2023 Encounter Details Date Type Department Care Team ([facility] st Contact Info) Description 11/08/2023 Telephone [facility] [address], [place] [phone] Shan, Mary [address] [place] [address] appt Social History Tobacco Use Types Packs/Day Years Used Date Smoking Tobacco: Every Day Cigarettes Passive Smoke Exposure: Current Smokeless Tobacco: Never Alcohol Use Standard Drinks/Week Comments Yes 4 (1 standard drink = 0.6 oz pur e alcohol) 4 beers on the weekends Depression Answer Date Recorded Patient Health Questionnaire-9 Score 25 07/05/2023 Patient Health Questionnaire-9 Score 25 07/05/2023 Last PHQ-9: Questionnaire Data Not on file 1 09/05/2022 Housing Stability Answer Date Recorded What is your housing situation today? I have [place] 07/28/[address] you li ve. Do you have problems with any of the following? None of the above 07/28/2023 Food Insecurity Answer Date Recorded Within the past 12 months, y ou worried that your food would run out before you got money to buy more: Never True 07/28/2023 Within the past 12 months,th e food you bought just didn't last and you didn't have enough money to get more: Never True 11/2023 Transportation Answer Date Recorded In the past 12 months, has l ack of transportation kept you from medical appts, meetings, work or from getting things needed for daily living? No 07/28/2023 Utilities Answer Date Recorded In the past 12 months, has t he electric, gas, oil or water company threatened to shut off services in your home? No 07/28/2023 Depression Answer Date Recorded Patient Health Questionnaire-2 Score 6 07/05/2023 Comments Unknown Sex and Gender Information Value Date Recorded Sex Assigned at Female 08/11/2022 3:30 PM EST Legal Sex Female 3:27 PM EST Gender Identity Female 08/11/2022 3:30 PM EST Sexual Orientation Choose not to disclose 2022 3:30 PM EST documented as of this encounter Miscellaneous Notes * Telephone Encounter - Abigail Padron - 11/08/2023 12:52 PM EDT Patient is checking in on status of her appt. On waiting list since 06/2023. Offered appt with Chad 11/08 but she has another appt and would not be able to make it. Informed I would inform office that she is waiting for appt documented in this encounter Plan of Treatment Upcoming Encounters Date Type Department Care Team (Late st Contact Info) Description 01/02/2025 2:30 PM EDT Nurse Only [facility] [address] [place] [phone] documented as of this encounter Visit Diagnoses Not on filedocumented in this encounter Additional Health Concerns Assessment Noted Time PHQ-9 Depression Total Score: 25 023 2:18 PM EST documented as of this encounter Care Teams Behavioral Health Counselor Relationship Specialty Start Date End Date Skyla Hodge NP [address] [place] [address] PCP - General Family Medicine 07/05/23 Tia Purcell Router Operator [employer] Model Maker 03/20/24 documented as of this encounter
== END 2024-12-26 13:23 | disposition home or self-care (01) ==
LOC: HO.HGS 13:00
PROVIDERS: PCP Nurse Practitioner; Visit Provider Surgery
DX: Z85.3 Personal history of malignant neoplasm of breast (principal)
CPT/HCPCS: 99213

== ENCOUNTER → 2024-12-26 12:59 | Outpatient (BNVA) | payer MEDICAID, SELFPAY | PROVIDERS: PCP Nurse Practitioner; Visit Provider Surgery | DX: Z85.3 Personal history of malignant neoplasm of breast (principal) | CPT/HCPCS: 99212 ==

== ENCOUNTER 2025-02-21 13:34 | Emergency (ER) | payer MEDICAID, SELFPAY ==
--- NOTE | ~2025-02-21 | XR_ITS ---
EXAMINATION: XR CHEST CLINICAL INFORMATION: chest pain COMPARISON: April 23, 2019 TECHNIQUE: 2 views of the chest were obtained. FINDINGS: No significant abnormality is noted involving the heart, lungs, mediastinum, bony thorax or soft tissues. XR/XR chest 2V IMPRESSION: No acute disease. Electronically signed by: Angelito Becerra MD 02/21/2025 02:27 PM EDT RP
--- NOTE | 2025-02-21 13:36 | ECG_ITS ---
Test Reason : cp Blood Pressure : */* mmHG Vent. Rate : 57 BPM Atrial Rate : 57 BPM P-R Int : 140 ms QRS Dur : 80 ms QT Int : 404 ms P-R-T Axes : 61 19 23 degrees QTcB Int : 393 ms Sinus bradycardia Otherwise normal ECG When compared with ECG of 23-Apr-2019 13:56, No significant change was found Referred By: Generic ED Physician Electronically Signed By: ROSA GUZMAN MD
[2025-02-21 13:45] VITALS: BP 138/68; PULSE 57; RESP 16; TEMP 36.4; O2SAT 99; BMI 24.8
--- NOTE | 2025-02-21 13:46 | ED.CHESTPAIN ---
HPI - Chest Pain General Chief Complaint: Chest Pain Stated Complaint: CP Time Seen by Provider: 02/21/25 14:34 Source: patient, RN notes reviewed, old records reviewed and shipper receiver Mode of arrival: ambulatory Limitations: language barrier History of Present Illness ED Provider: Sherley HPI narrative: Patient is a 59-year-old Cameroonian-speaking female with history of bilateral invasive ductal carcinoma of the left breast status post bilateral mastectomy in November of 2023 currently on letrozole presenting to the emergency department with complaint of left-sided intermittent chest pain for the past 2 days. States pain began at rest. Denies palpitations. Reports occasional associated lightheadedness. Reports nonproductive cough which also began 2 days ago. Denies recent calf pain or swelling. Denies recent travel. States pain is exacerbated with movement and deep inspiration. MD complaint: chest pain Pertinent past history: other Related Data Home Medications ?Medication ?Instructions ?Recorded ?Confirmed cholecalciferol (vitamin D3) 125 125 mcg DAILY 11/22/23 12/26/24 mcg (5,000 unit) capsule escitalopram oxalate 10 mg tablet 10 mg PO DAILY 11/22/23 12/26/24 escitalopram oxalate 20 mg tablet 20 mg PO DAILY 11/22/23 12/26/24 famotidine 20 mg tablet 20 mg PO BEDTIME 11/22/23 12/26/24 hydroxyzine HCl 50 mg tablet 50 mg PO QID PRN anxiety 11/22/23 12/26/24 melatonin 5 mg tablet 10 mg PO BEDTIME 11/22/23 12/26/24 Previous Rx's ?Medication ?Instructions ?Recorded ibuprofen 600 mg tablet 600 mg PO Q6H PRN pain #30 tabs 11/24/23 Prosthesis, breast (Breast #2 ea 12/22/23 prosthesis) mastectomy bra (bra, mastectomy) #6 ea 12/22/23 letrozole 2.5 mg tablet 2.5 mg PO DAILY #90 tabs 12/20/24 psyllium husk 0.52 gram capsule 0.52 g PO DAILY #90 caps 12/26/24 (Fiber Laxative (psyllium husk)) naproxen 500 mg tablet 500 mg PO BID #14 tabs 02/21/25 Allergies Allergy/AdvReac Type Severity Reaction Status Date / Time No Known Allergies Allergy Verified 02/21/25 13:48 Review of Systems Review of Systems: As per HPI Yes all other systems are reviewed and are negative Constitutional: Constitutional: Reports as per HPI [facility] Past Medical History Medical History (Updated 02/21/25 @ 16:15 by Ghada Lepe NP) History of breast cancer History of bilateral breast cancer 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 Breast mass, right Invasive ductal carcinoma of breast Left breast mass Surgical History History of bilateral mastectomy (~11/22/23) History of removal of ovarian cyst Family History Family History Maternal Aunt Breast cancer Maternal Uncle Lung cancer Social History Social History Household Members: Family Housing: House Do you presently have visiting nurse or other home services: No Patient Tobacco Use Status: Current everyday Tobacco user Tobacco use type: Cigarette Cigarette Packs Per Day: 0.3 Cigarettes Per Day: 6.0 Smoked in Last 30 Days: No e-Cigarette/Vaping Use: Never Used Second Hand Smoke Exposure: No Substance Use Type: Marijuana Advance Directives: No Advance Directives Information Provided: No service: No Current occupational status: employed Physical Exam Vital Signs: Vital Signs: Last Vital Signs Temp 97.6 F 02/21/25 13:45 Pulse 57 02/21/25 13:45 Resp 16 02/21/25 13:45 BP 138/68 02/21/25 13:45 Pulse Ox 99 02/21/25 13:45 O2 Del Method Room Air 02/21/25 13:45 BMI result Body Mass Index 24.8 Vital signs have been reviewed and appear to be correct. Blood pressure normal. Heart rate normal. Respiratory rate normal. Temperature normal. Oxygen saturation normal. Const: General: cooperative, healthy appearing and no acute distress Orientation/consciousness: oriented to person, oriented to place, oriented to time and patient oriented x3 Limitations: no limitations HEENT: Head: Yes normocephalic and Yes atraumatic Ears: external ears normal General nose exam: Normal external nose present Face and sinus: Yes face symmetric Mouth: oropharynx normal and moist mucous membranes Throat: Yes uvula midline Eyes: Pupils: Equal, round and reactive pupils present Neck: Neck: Yes normal visual inspection and Yes supple Chest: Chest palpation & inspection: normal inspection of the chest and tenderness pectoral muscle on the left Resp: Effort & Inspection: normal respiratory effort and able to speak in complete sentences Auscultation: clear to auscultation bilaterally Cardio: Rate: regular rate Rhythm: regular rhythm Heart sounds: S1 normal heart sound present and S2 normal heart sound present GI: Palpation (GI): Soft to palpation and nontender Auscultation: normoactive bowel sounds : General: Yes no CVA tenderness Back/Spine/Pelvis: Back: no CVA tenderness Skin: General skin exam: elasticity normal and turgor normal Neuro: General: oriented to person, oriented to place, oriented to time, patient oriented x3, moves all extremities, no focal motor deficits and CN's II-XI intact bilaterally Cranial nerves: Yes Equal, round and reactive pupils present Cognition (Neuro): normal cognition Extrem: General: Yes full ROM, Yes no pedal edema and Yes no calf tenderness Psych: Mental Status: mental status grossly normal Affect: normal affect Thought process: Normal thought process present Course Course Course Narrative: This is an RME performed by Justo Barney CNP: Additional HPI, ROS, PE not included below will be deferred to primary provider. Patient is a 59-year-old female who presents emergency department for evaluation of left anterior intermittent chest pain over the past 2 days exacerbated with heavy lifting, moving and cough. Has recent non productive cough URI symptoms. Small past medical history. No fevers or chills. No hypoxia tachypnea, afebrile, LS CTA, upon palpation to the left anterior chest Plan: Serum labs, ECG, CXR Medical Decision Making Medical Decision Making MDM Narrative: Patient is a 59-year-old Cameroonian-speaking female with history of bilateral invasive ductal carcinoma of the left breast status post bilateral mastectomy in November of 2023 currently on letrozole presenting to the emergency department with complaint of left-sided intermittent chest pain for the past 2 days. On exam patient is awake, A+Ox3, VS WNL, afebrile, normal neurological exam without focal deficits, physical exam findings as above. Given reported symptoms and physical exam findings, initial differential includes but is not limited to musculoskeletal pain, costochondritis, viral illness, bronchitis, pneumonia, less likely ACS. Unlikely PE but given history of cancer, will check d-dimer. Labs notable for no leukocytosis, no anemia, negative troponin, negative D-dimer. Viral panel negative. X-ray chest notable for no evidence of pneumonia or pneumothorax. My interpretation is in agreement with the radiologist's interpretation. EKG shows sinus bradycardia. Rn noted patient has become bradycardic into 40's at times. EKG repeated, again shows sinus bradycardia with rate of 41 beats per minute. Case discussed with attending, Dr. Moise, who feels patient is stable for discharge home. Patient advised to follow up with her PCP this week. Return precautions discussed at bedside. Patient verbalized understanding of and agreement with plan. Differential Diagnosis Differential Diagnoses: The differential diagnosis associated with the presentation includes as per [facility] Admission/Observation Consideration of admission/observation: Escalation of care including admission/observation considered Patient would have been admitted to the hospital had their clinical presentation warranted hospital admission. Lab Data [facility] Lab Attestation statement: I reviewed the patient's lab results. as per [facility] 02/21/25 13:58 02/21/25 13:58 Labs: Lab Results 02/21/25 02/21/25 Range/Units 13:58 15:18 WBC 6.7 (4.8-10.8) X10*3/uL RBC 4.47 (4.20-5.50) X10*6/uL Hgb 13.0 (12.0-16.0) g/dl Hct 37.7 (37.0-47.0) % MCV 84.3 (80.0-98.0) fL MCH 29.1 (27.0-33.0) pg MCHC 34.5 (31.0-35.0) g/dl RDW 12.8 (11.0-16.0) % Plt Count 260 (160-400) X10*3/uL MPV 11.2 (9.4-12.3) fL Immature Gran % (Auto) 0.3 (0.0-0.4) % Neut % (Auto) 64.4 (45-73) % Lymph % (Auto) 25.8 (20-40) % Dukes % (Auto) 7.7 (2-11) % Eos % (Auto) 1.2 (0-4) % Baso % (Auto) 0.6 (0-2) % Lymph # (Auto) 1.7 (1.2-4.9) X10*3/uL Dukes # (Auto) 0.5 (0.1-1.2) X10*3/uL Eos # (Auto) 0.1 (0.0-0.4) X10*3/uL Baso # (Auto) 0.0 (0.0-0.2) X10*3/uL Abs Immat Gran (auto) 0.02 (0.00-0.03) X10*3/uL Absolute Neuts (auto) 4.3 (2.0-8.3) x10*3/uL Absolute Nucleated RBC 0.000 (0.0-0.012) X10*3/uL Nucleated RBC % (auto) 0.0 (0.0-0.2) /100WBC D-Dimer High Sensitivty < 150 NG/ML Sodium 144 (135-145) mmol/L Potassium 3.8 (3.3-5.1) mmol/L Chloride 111 H (96-108) mmol/L Carbon Dioxide 27 (22-29) mmol/L Anion Gap 10 L (12-20) BUN 16 (9-16) mg/dL Creatinine 0.76 (0.5-1.4) mg/dL Estim Creat Clear Calc 66.0 Estimated GFR > 60 Random Glucose 115 (60-115) mg/dL Calcium 9.3 (8.4-10.2) mg/dL Total Bilirubin 0.2 (0.0-1.0) mg/dL AST 19 (5-31) U/L ALT 13 (0-31) U/L Alkaline Phosphatase 71 (39-117) U/L Troponin I High Sens < 2.7 (<3.5-17.0) ng/L Total Protein 7.4 (6.5-8.0) g/dL Albumin 4.3 (3.5-5.0) g/dL Influenza Type A (PCR) NEGATIVE (Negative) Influenza Type B (PCR) NEGATIVE (Negative) RSV RNA Qual (PCR) NEGATIVE (Negative) SARS-CoV-2 RNA (RT-PCR) NEGATIVE (Negative) Independent Interpretation I performed an independent interpretation of an: EKG (Initial EKG shows sinus bradycardia, rate 57 beats per minute, normal WI interval and QTC; repeat EKG shows sinus bradycardia rate 41 beats per minute, normal WI interval and QTC) and Plain X-Ray (Chest x-ray is without evidence of pneumonia or pneumothorax) Radiology Impression Discussion of test interpretation with radiology: I have reviewed the radiologist's reading. Radiologist Impression: XR/XR chest 2V IMPRESSION: No acute disease. External Record Review External record reviewed: Inpatient record, Office record and Outpatient record Prescription Management I considered prescription management with: Pain Medication Critical Care Time Critical Care Time Critical Care Time: Yes Total Critical Care Time: 33 Attestation: I have personally provided critical care time exclusive of time spent on separately billable procedures. Time includes review of lab data, radiology results, discussion with consultants, and monitoring for potential decompensation. Intervention performed as documented. Discharge Plan Discharge Clinical Impression: Atypical chest pain, Bradycardia, sinus Patient Disposition: Home, Self-Care Instructions: Chest Pain (DC), Bradycardia (ED) Additional Instructions: You were evaluated in the emergency department today for chest pain. Your evaluation has shown no signs of medical conditions requiring emergent intervention at this time, however we recommend that you follow-up with your primary care physician or your crawler tractor operator for further testing as an outpatient. You have been prescribed naproxen which is an anti-inflammatory medication, take this as prescribed. Please schedule an appointment for follow-up with your primary care physician as soon as possible. Return to the emergency department if you experience worsening or uncontrolled chest pain, shortness of breath, lightheadedness, feeling faint, loss of consciousness, nausea, vomiting, or any other concerning symptoms. Prescriptions: New naproxen 500 mg tablet 500 mg PO BID Qty: 14 0RF No Action hydroxyzine HCl 50 mg tablet 50 mg PO QID PRN (Reason: anxiety) famotidine 20 mg tablet 20 mg PO BEDTIME cholecalciferol (vitamin D3) 125 mcg (5,000 unit) capsule 125 mcg DAILY escitalopram oxalate 10 mg tablet 10 mg PO DAILY escitalopram oxalate 20 mg tablet 20 mg PO DAILY melatonin 5 mg tablet 10 mg PO BEDTIME ibuprofen 600 mg tablet 600 mg PO Q6H PRN (Reason: pain) Qty: 30 0RF (DME) Breast prosthesis Kit Qty: 2 0RF Rx Instructions: As Directed (DME) bra, mastectomy Crystals Qty: 6 0RF Rx Instructions: As Directed letrozole 2.5 mg Tablet 2.5 mg PO DAILY Qty: 90 3RF psyllium husk [Fiber Laxative (psyllium husk)] 0.52 gram Capsule 0.52 g PO DAILY Qty: 90 1RF Print Language: Cameroonian
[2025-02-21 14:04] LABS: MANUAL DIFF FLAG NO
[2025-02-21 14:06] LABS: Hematocrit 37.7 % (37.0-47.0); Hemoglobin 13.0 g/dl (12.0-16.0); Imm Gran Abs Auto 0.02 X10*3/uL (0.00-0.03); Imm Gran Pct Auto 0.3 % (0.0-0.4); Lymphocytes Absolute Auto 1.7 X10*3/uL (1.2-4.9); Mean Corpuscular HGB Conc 34.5 g/dl (31.0-35.0); Mean Corpuscular Hemoglobin 29.1 pg (27.0-33.0); Mean Corpuscular Volume 84.3 fL (80.0-98.0); NRBC Abs Auto 0.000 X10*3/uL (0.0-0.012); NRBC Pct Auto 0.0 /100WBC (0.0-0.2); Platelet Count 260 X10*3/uL (160-400); Red Blood Count 4.47 X10*6/uL (4.20-5.50); White Blood Count 6.7 X10*3/uL (4.8-10.8)
[2025-02-21 14:41] LABS: Alanine Aminotransferase 13 U/L (0-31); Albumin Level 4.3 g/dL (3.5-5.0); Alkaline Phosphatase 71 U/L (39-117); Anion Gap 10 (12-20); Aspartate Amino Transferase 19 U/L (5-31); Blood Urea Nitrogen 16 mg/dL (9-16); Calcium 9.3 mg/dL (8.4-10.2); Carbon Dioxide 27 mmol/L (22-29); Chloride 111 mmol/L (96-108); Creatinine Clr Calc Pharmacy 66.0; Estimated Glomerular Filt Rate > 60; Potassium 3.8 mmol/L (3.3-5.1); Sodium 144 mmol/L (135-145); Total Protein 7.4 g/dL (6.5-8.0); Troponin-I High Sensitivity < 2.7 ng/L (<3.5-17.0)
[2025-02-21 14:54] LABS: Resp Syncy Virus RNA Qual PCR NEGATIVE (Negative); SARS COV2 PCR INHOUSE NEGATIVE (Negative)
--- OUTSIDE RECORDS SUMMARY | 2025-02-21 15:19 | XMS_ITS | Encounter Summary ---
Author Organization [employer] Address [address] [place] [address] Care Team Providers Care Saxophone Teacher Name Role Phone Skyla Hodge NP Primary Care Provider [phone] Reason for Visit * Reason Onset Date Comments Med Refill 01/14/2025 Encounter Details Date Type Department Care Team (Late st Contact Info) Description 01/14/2025 Refill [facility] MEDICINE [address] [place] [address] Skyla Hodge NP [address] [place] [address] Social History Tobacco Use Types Packs/Day Years Used Date Smoking Tobacco: Every Day Cigarettes Passive Smoke Exposure: Current Smokeless Tobacco: Never Alcohol Use Standard Drinks/Week Comments Yes 4 (1 standard drink = 0.6 oz pur e alcohol) 4 beers on the weekends Depression Answer Date Recorded Patient Health Questionnaire-9 Score 17 06/12/2024 Patient Health Questionnaire-9 Score 17 06/12/2024 Last PHQ-9: Questionnaire Data Not on file 1 08/12/2023 Housing Stability Answer Date Recorded What is your housing situation today? I have [facility] 07/28/[address] you li [...] Answer Date Recorded Patient Health Questionnaire-2 Score 4 06/12/2024 Comments Unknown Sex and Gender Information Value Date Recorded Sex Assigned at Female 08/11/2022 3:30 PM EST Legal Sex Female 3:27 PM EST Gender Identity Female 08/11/2022 3:30 PM EST Sexual Orientation Choose not to disclose 2022 3:30 PM EST documented as of this encounter Plan of Treatment Not on file documented as of this encounter Visit Diagnoses Not on filedocumented in this encounter Additional Health Concerns Assessment Noted Time PHQ-9 Depression Total Score: 17 024 3:22 PM EST documented as of this encounter Care Teams Saxophone Teacher Relationship Specialty Start Date End Date Skyla Hodge NP [address] [place] [address] PCP - General Family Medicine 07/05/23 Tia Purcell Pin Machine OperatorContainer Washer 03/20/24 documented as of this encounter
--- OUTSIDE RECORDS SUMMARY | 2025-02-21 15:19 | XMS_ITS | Clinical Summary ---
Author Organization [facility] Address [address] [place] [address] Care Team Providers Care Route Inspector Name Role Phone Unavailable Primary Care Provider Unavailabl e Social History Tobacco Use Types Packs/Day Years Used Date Smoking Tobacco: Never Assessed Comments Unknown Sex and Gender Information Value Date Recorded Sex Assigned at Not on file Legal Sex Female 7:32 PM EST Gender Identity Not on file Sexual Orientation Not on file Plan of Treatment Health Maintenance Due Date Last Done Comments Breast Cancer Screening 09/26/1965 DTaP,Tdap,and Td Vaccines (1 - Tdap) 09/26/1984 Hepatitis B Vaccines (1 of 3 - 19+ 3-dose series) 09/26/1984 Cervical Cancer Screening: P ap Smear 09/26/1986 Pneumococcal Vaccine: 50+ Ye ars (1 of 1 - PCV) 09/27/2015 Zoster Vaccines (1 of 2) 09/27/2015 COVID-19 Vaccine (2023-2 5 season) 2024 Depression Screening 07/24/2024 Influenza Vaccine (#1) 2025 RSV Immunization Adult Patie nts (1 - 1-dose 75+ series) 09/26/2040 HIB Vaccines Aged Out No longer eligi ble based on patient's age to complete this topic HPV Vaccines Aged Out No longer eligi ble based on patient's age to complete this topic Hepatitis A Vaccines Aged Out No long er eligible based on patient's age to complete this topic IPV Vaccines Aged Out No longer eligi ble based on patient's age to complete this topic MMR Vaccines Aged Out No longer eligi ble based on patient's age to complete this topic Meningococcal ACWY Vaccine Aged Out N o longer eligible based on patient's age to complete this topic Meningococcal B Vaccine Aged Out No l onger eligible based on patient's age to complete this topic RSV Immunization Patients Un parviz 20 months Aged Out No longer eligible b ased on patient's age to complete this topic Varicella Vaccines Aged Out No longer eligible based on patient's age to complete this topic
--- OUTSIDE RECORDS SUMMARY | 2025-02-21 15:19 | XMS_ITS | Clinical Summary ---
Author Organization [facility] Address [address] [place] [address] Care Team Providers Care Rn Orthopedic Name Role Phone Unavailable Primary Care Provider Unavailabl e Source Comments PLEASE NOTE, if this patient is a minor, it may be UNLAWFUL to discuss sensitive information that is contained in these records (such as FAMILY PLANNING, MENTAL HEALTH or SUBSTANCE ABUSE) with the minor patient's parent or other person without the patient's specific authorization.[facility] Medications melatonin 5 mg tabIndications: Severe episode of recurrent major depressive disorder, without psychotic features (CMS & HHS-HCC) Take 10 mg by mouth 04/29/2024 Active oxyCODONE-aceta minophen (PERCOCET) 5-325 mg per tablet Take 1 Tablet by mouth every 4 (four) hours as needed for pain 06/17/2024 Active melatonin 5 mg tab Take 10 mg by mouth nightly at bedtime 06/14/2024 Active letrozole (FEMARA) 2.5 mg tablet Take 2.5 mg by mouth once daily Active ibuprofen 800 mg tablet Take 800 mg by mouth 3 (three) times daily 01/17/2024 Active fluticasone (FLONASE) 50 mcg/actuation nasal spray Place 1 Lueders in both nostrils once daily 06/12/2024 06/12/20 25 Active famotidine (PEPCID) 20 mg tablet Take 20 mg by mouth once daily 02/21/2024 Active cholecalciferol (VITAMIN D-3) 125 mcg (5,000 unit) capsule Take 1 Capsule by mouth once daily Active calcium carbonate 600 mg calcium (1,500 mg) tablet Take 600 mg by mouth 2 (two) times daily 06/12/2024 Active blood pressure monitor Use 1 Kit as directed daily. 05/29/2023 Active zolpidem (AMBIEN CR) 6.25 mg CR tablet Take 1 Tablet by mouth nightly at bedtime as needed for sleep for up to 30 days DO NOT BREAK, CRUSH, DISSOLVE OR CHEW 30 Tablet 06/27/2024 Active hydrOXYzine HCL (ATARAX) 50 mg tabletIndicatio ns:JOE (generalized anxiety disorder) Take 1 Tablet by mouth 4 (four) times daily as needed for anxiety for up to 30 days 30 Tablet 06/27/2024 Active sertraline (ZOLOFT) 50 mg tabletIndicatio ns:Severe episode of recurrent major depressive disorder, without psychotic features (CMS & HHS-HCC),JOE (generalized anxiety disorder) TOME 1 TABLETA POR VIA ORAL TODOS [place] 30 Tablet 08/26/2024 Active ARIPiprazole (ABILIFY) 5 mg tabletIndicatio ns:Severe episode of recurrent major depressive disorder, without psychotic features ([facility] & HHS-HCC) TOME 1 TABLETA POR VIA ORAL TODOS [place] 30 Tablet 08/26/2024 Active Active Problems Problem Noted Date Diagnosed Date JOE (generalized anxiety disorder) 06/12/2024 Assessment & Plan (07/02/2024 2:31 PM EST): A: Excessive worrying P: Start Sertraline 50 mg Continue Hydroxyzine Prolonged grief disorder 06/12/2024 Severe episode of recurrent major depressive disorder, without psychotic features ([facility] & HHS-HCC) 06/12/2024 Overview (07/02/2024): Patient presents with major depressive disorder with psychotic features, characterized by depressed mood, anhedonia, fatigue, and auditory/visual hallucinations. Symptoms appear to have worsened following significant life stressors including mother's and breast cancer diagnosis/treatment. Assessment & Plan (07/02/2024 2:27 PM EST): Major Depressive Disorder with Psychotic Features: Symptoms: depressed mood, isolation, low energy, overthinking, crying spells, auditory and visual hallucinations Plan: Discontinue escitalopram Start sertraline (Zoloft) Start aripiprazole (Abilify) Continue zolpidem ER 6.25mg for sleep Monthly follow-up appointments Continue current therapy Patient educated about: Discontinuation of escitalopram Introduction of new medications (sertraline and aripiprazole) Importance of medication compliance Follow-up appointment scheduled for July 25 at 1:30 PM Insomnia due to medical condition 12/27/2023 Diagnosis of malignant neopl asm based on investigation without tissue diagnosis ([facility]) 11/30/2023 Fatigue 10/27/2023 Sleep disturbance 10/27/2023 Infiltrating ductal carcinom a of left breast ([facility]) 09/13/2023 Overview (06/27/2024): Left breast mass @ 6 o'clock position. Diagnosis via biopsy 09/05/23. -Estrogen receptor: Positive. -Progesterone receptor: Positive. -HER-2: Negative. -Proliferation index: High (25% of tumor cells by Ki-67 immunostaining) Wolf. Gastric reflux 07/28/2023 Encounter for Papanicolaou s mear for cervical cancer screening 07/06/2023 Overview (06/27/2024): Never had colonoscopy Mammogram and pap over 5 years ago in [place] Overweight with body mass index (BMI) 25.0-29.9 07/06/2023 Inadequate housing 06/13/2023 Complicated grieving 05/29/2023 Current severe episode of ma brian depressive disorder with psychotic features without prior episode ([facility]) 05/29/2023 Dental calculus 09/05/2022 Gingival bleeding 09/05/2022 Gingival recession, generalized 09/05/2022 Periodontal disease 09/05/2022 Resolved Problems Problem Noted Date Diagnosed Date Resolved Date Streptococcal sore throat and scarlet fever 08/18/2023 07/29/2024 Immunizations Immunization Administration Dates Next Due Flu, Preservative Free 07/05/2023 Hep B, Adult/Adol (VNSYOYM-N-GPMNG/RECOMBIVAX-ADULT) 02/26/2024,09/25/2023,08/25/2023 INFLUENZA, SEASONAL, INJECTA BLE, PRESERVATIVE FREE 06/12/2024 PNEUMOCOCCAL CONJUGATE PCV 20 (Prevnar 20) 06/12 TDAP 06/12/2024 Family History Medical History Relation Name Comments No Known Problems Father Diabetes Mellitus II Mother Alzheimer's Disease Other maternal family Relation Name Status Comments Father Mother Other maternal family Social History Tobacco Use Types Packs/Day Years Used Date Smoking Tobacco: Some Days Cigarettes Smokeless Tobacco: Never Tobacco Cessation:Ready to Q uit: Not Asked; Counseling Given: Not Answered Alcohol Use Standard Drinks/Week Comments Not Currently 0 (1 standard drink = 0.6 oz pur e alcohol) Social Connections Answer Date Recorded Connectedness 0 06/14/2024 Financial Resource Strain Answer Date R ecorded Financial Resource Strain 0 2023 Stress Answer Date Recorded Stress 0 06/14/2024 Physical Activity Answer Date Recorded Physical Activity 0 06/14/2024 Food Insecurity Answer Date Recorded Food 0 06/14/2024 Transportation Needs Answer Date Record ed Transportation 0 06/14/2024 Housing Stability Answer Date Recorded Housing 0 06/14/2024 Safety and Environment Answer Date Justen rded Safety 0 06/14/2024 Utilities Answer Date Recorded Utilities 0 06/14/2024 Employment Answer Date Recorded Stress 0 06/14/2024 Comments Unknown Sex and Gender Information Value Date Recorded Sex Assigned at Female 06/14/2024 5:20 AM PST Legal Sex Female 5:20 AM PST Gender Identity Female 06/14/2024 5:20 AM PST Sexual Orientation Not on file Plan of Treatment Health Maintenance Due Date Last Done Comments Anxiety Screening 09/26/1965 Depression Monitoring 09/26/1965 HPV Screening 09/26/1965 Pap + HPV 09/26/1965 Tobacco Cessation Counseling (#1) 09/26[birth year]1965 Urine Drug Screen 09[birth year]26[birth year]1965 Hypertension Screening (#1) 09/27/1983 Cervical Cancer Screening 09/26/1986 Pap Smear 09/26/1986 Breast Cancer Screening (Mammogram) 09/26/2005 CT Colonography 09/26/2010 Colonoscopy 09/26/2010 Flexible Sigmoidoscopy 09/26/2010 Imm-Zoster, Recombinant (1 of 2) 09/27/2015 Ved-URJMA-59 ( season) 2024 08/03/2021, 12/23/2020, 11/19/2020 Alcohol and Drug Screen 07/24/2024 FIT/gFOBT 08/16/2024 08/16/2023, 08/16/2023 Imm-Influenza (#1) 2025 06/12/2024, 07/05/2023 Diabetes Screening 06/19/2025 06/19/2024 Lipid Screening 06/19/2025 06/19/2024, 07/26/2023 Colorectal Cancer Screening 08/16/2026 Fecal DNA 08/16/2026 08/16/2023, 08/16/2023 Imm-DTaP/Tdap/Td (2 - Td or Tdap) 06/12/2034 024 Imm-Hepatitis B Completed 02/26/2024, 03/0 10/2023, 08/25/2023 Imm-Pneumococcal 50+ Completed 06/12/2024 HIV Screening Completed 06/19/2024, 06/19/2024 Hepatitis C Screening Completed 06/19/2024 Cervical Ablation/Cold-Knife Conization Discontinued Cervical Cryotherapy Discontinued Colposcopy Discontinued Endometrial Biopsy Discontinued Excision/Leep Discontinued HPV Genotyping Discontinued Vaginal Pap Discontinued Vulvoscopy Discontinued Insurance [facility] [place]
[2025-02-21 15:36] LABS: D Dimer High Sensitivity < 150 NG/ML
--- NOTE | 2025-02-21 15:36 | PC.NURSE ---
Initial contact w/ pt, pt c/o 03/02 chest pain, pt on monitoring specialist, HR 39, Ghada, CHIEF TECHNOLOGIST made aware.
[2025-02-21 16:28] VITALS: BP 138/68; PULSE 57; RESP 16; TEMP 36.4; O2SAT 99
== END 2025-02-21 16:38 | disposition home or self-care (01) ==
PROVIDERS: Nurse Practitioner Family; Registered Nurse Emergency; Emergency Provider Emergency Medicine
DX: R07.89 Other chest pain (principal); R00.1 Bradycardia, unspecified; Z85.3 Personal history of malignant neoplasm of breast; Z90.13 Acquired absence of bilateral breasts and nipples
CPT/HCPCS: 36415; 71046; 80053; 84484; 85025; 85379; 87637; 93005; 99283; 99284

== ENCOUNTER → 2025-02-21 13:36 | Outpatient (BNV) | payer MEDICAID, SELFPAY | PROVIDERS: Emergency Provider Emergency Medicine; Visit Provider Internal Medicine Cardiovascular Disease | DX: R00.1 Bradycardia, unspecified (principal) | CPT/HCPCS: 93010 ==

== ENCOUNTER → 2025-02-21 13:53 | Outpatient (BNV) | payer MEDICAID, SELFPAY | PROVIDERS: Emergency Provider Emergency Medicine Emergency Medical Services; Visit Provider Radiology Diagnostic Radiology | DX: R07.9 Chest pain, unspecified (principal) | CPT/HCPCS: 71046 ==

== ENCOUNTER 2025-05-01 10:06 | Outpatient (AMB) | payer MEDICAID, SELFPAY ==
--- NOTE | 2025-05-01 10:09 | MHC.OFFVIS ---
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/ Dr Name/ bradycardia/ [place] Lawn Caretaker Required: Yes Lawn Caretaker Name: Agustín [phone] Megan Accompanied by: Self / Same As Patient Allergies No Known Allergies Allergy (Verified 05/01/25 10:16) Medication List - Last Reconciled 05/01/25 by Higinio Aragon MD famotidine 20 mg PO BEDTIME hydroxyzine HCl 50 mg PO QID PRN ibuprofen 600 mg PO Q6H PRN letrozole 2.5 mg PO DAILY mastectomy bra (bra, mastectomy) As Directed melatonin 10 mg PO BEDTIME Prosthesis, breast (Breast prosthesis) As Directed psyllium husk (Fiber Laxative (psyllium husk)) 0.52 grams PO DAILY zolpidem ER 6.25 mg PO BEDTIME PRN HPI Comments Details: This is a cardiology consultation regarding chest pain. Patient herself does not have any known cardiac issues including coronary disease or myocardial infarction or cardiomyopathy or in fact any other cardiac issues. It appears that she has had prior mastectomy. She states for the last month or so she has been noticing some chest pains in the left side. Can happen any time. With or without exertion. There was also an ER visits for the same. Hence she is referred here for further evaluation. 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 Breast mass, right Invasive ductal carcinoma of breast Left breast mass Surgical History History of bilateral mastectomy (~11/22/23) History of removal of ovarian cyst Family History (Updated 05/01/25 @ 10:15 by Mario Andrade CNA) Maternal Aunt Breast cancer Maternal Uncle Lung cancer Father History of open heart surgery Mother Pacemaker Social History Household Members: Family Housing: House Do you presently have visiting nurse or other home services: No Patient Tobacco Use Status: Current everyday Tobacco user Tobacco use type: Cigarette Cigarette Packs Per Day: 0.3 Cigarettes Per Day: 6.0 e-Cigarette/Vaping Use: Never Used Second Hand Smoke Exposure: No Substance Use Type: Marijuana service: No Current occupational status: employed Review of Systems Const Denies chills, Denies daytime sleepiness, Denies fatigue, Denies fever(s), Denies poor appetite, Denies snoring, Denies stops breathing during sleep, Denies weight gain and Denies weight loss Eyes Denies loss of vision Card Denies chest pain, Denies claudication, Denies leg edema, Reports lightheadedness, Denies palpitations, Reports dyspnea, Reports dyspnea on exertion and Denies orthopnea Resp Denies cough, Denies excessive phlegm production, Denies pain with cough, Reports dyspnea, Reports dyspnea on exertion, Denies snoring, Denies wheezing and Denies other GI Denies abdominal pain, Denies hematochezia, Denies change in bowel habits, Denies nausea and Denies vomiting Denies urinary frequency and Denies dysuria Musc Denies arthralgias, Denies muscle weakness and Reports numbness Skin/Breast Denies nail changes and Denies rash Neuro Denies loss of vision, Denies memory loss and Reports numbness Psych Denies depression, Reports difficulty concentrating, Denies auditory hallucinations and Denies memory loss Endo Denies fatigue and Denies palpitations Shon/Lymph Denies easy bruising Aller/Immun Denies wheezing Physical Exam Vital Signs: Last Vital Signs Pulse 59 05/01/25 10:10 BP 110/52 L 05/01/25 10:10 BMI result Body Mass Index 22.5 Const General: comfortable and no acute distress Orientation/consciousness: patient oriented x3 HEENT Other: Unremarkable Head: Yes normal to inspection Neck Neck: Yes normal visual inspection Chest Chest palpation & inspection: normal inspection of the chest Resp Auscultation: clear to auscultation bilaterally Cardio Palpation: normal PMI Heart sounds: S1 normal heart sound present, S2 normal heart sound present, no gallops, no murmurs and no rubs GI Palpation (GI): Soft to palpation Back/Spine/Pelvis Other: unremarkable Skin General skin exam: no rashes or lesions noted Neuro General: patient oriented x3 Extrem General: Yes normal to inspection Psych Mental Status: mental status grossly normal Office Procedures EKG Details: Error [id number], Complete Assessment & Plan Assessment & Plan (1) Precordial chest pain: Code(s): R07.2 - Precordial pain Category: Medical Plan In the recent EKG, underlying rhythm is sinus at 57/Min; no ischemic changes; normal MO and corrected QT. In a previous EKG from 2019, again sinus bradycardia at 51/Min. Recent chest x-ray reported have no acute disease. High sensitivity troponins are within range. Overall, atypical sounding chest pain; less likely cardiac. We will do basic screening with an echocardiogram and exercise stress test. If unremarkable, then reassurance only and explore noncardiac causes. Orders: Orders CA echo transthoracic complete Today R07.2 - Precordial pain CA stress test Today R07.2 - Precordial pain Coding Level of Care Code New Pt Level 3 (07754) Diagnoses Precordial chest pain R07.2 CPT Codes EKG - CPT: 28759-[id number], Complete ([id number])
[2025-05-01 10:10] VITALS: BP 110/52; PULSE 59; BMI 22.5
== END 2025-05-01 10:45 | disposition home or self-care (01) ==
PROVIDERS: PCP Internal Medicine Geriatric Medicine; Visit Provider Internal Medicine
DX: R07.2 Precordial pain (principal)
CPT/HCPCS: 93010; 99203

== ENCOUNTER → 2025-05-01 10:06 | Outpatient (BNVA) | payer MEDICAID, SELFPAY | PROVIDERS: Visit Provider Internal Medicine | DX: R07.2 Precordial pain (principal) | CPT/HCPCS: 93005; 99202 ==

== ENCOUNTER → 2025-07-15 08:36 | Outpatient (REF) | payer MEDICAID, SELFPAY ==
--- NOTE | 2025-07-15 08:39 | CA_ITS ---
Transthoracic Echocardiogram Patient (Last, First, Middle): Karin Rojas, Gender: Female Date of : 09/26/1965 Age: 59 Procedure Date: 07/15/2025 Procedure Type: Transthoracic Echocardiogram Location: OP Height: 160.02 cm Weight: 57.15 kg BSA: 1.59 m2 Heart Rate: 46 bpm BP: 110 / 52 mmHg Thermal Cutter Helper: SB Referring MD: Higinio Aragon MD Health Information Systems Technician: Zack Fontaine MD Symptoms: R07.2 - Precordial pain Study Quality: Adequate ECG Rhythm: sinus Bradycardia Conclusions: - Normal study Findings Left Ventricle Normal left ventricular size, thickness, and systolic function. The visually estimated ejection fraction is between 60-65%. Diastolic function is normal for age. Right Ventricle Normal right ventricular cavity size and systolic function. Atria Both atria are normal in size. There is a mobile atrial septum noted. There is no evidence of interatrial shunt. Aortic Valve Normal aortic valve structure and function. There is no aortic valve stenosis. There is no aortic valve regurgitation. Mitral Valve Normal mitral valve structure and function. There is no mitral valve regurgitation. There is no mitral valve stenosis. Pulmonic Valve The pulmonic valve is normal. There is trace pulmonic valve regurgitation. Tricuspid Valve Normal tricuspid valve structure. There is trace tricuspid valve regurgitation. The right ventricular systolic pressure is normal. The right ventricular systolic pressure is 23 mmHg. Normal right atrial pressure. There is no evidence of pulmonary hypertension. Great Vessels All visible segments of the aorta are normal in size. The visualized portions of the pulmonary artery and branches are normal. Venous The inferior vena cava is normal in size and collapses greater than 50% with inspiration. Pericardium/Pleural There is no evidence of pericardial effusion. Prior Study Comparison No prior study available for comparison. Measurements 2D Linear Measurements IVSd: 0.69 0.6-0.9/0.6-1.0 cm LVIDd: 4.47 3.9-5.3/4.2-5.9 cm LVIDd Index: 2.81 2.4-3.2/2.2-3.1 cm/m2 LVIDs: 2.74 2.0-3.6 cm LVPWd: 0.78 0.7-1.1 cm LA Diam: 3.60 2.7-3.8/3.0-4.0 cm LAIDs Index: 2.26 1.5-2.3 cm/m2 LV Mass: 124.97 67-162/88-224 g LV Mass Index: 78.60 43-95/49-115 g/m2 LVOT Diam: 1.90 3.0+(-)1.3 cm 2D Systolic Function EF 4C: 62.90 >55% EF 2C: 63.90 >55% EF BiP: 63.10 >55% Mitral Valve MV Pk E: 0.81 MV PK A: 0.51 MV Decel Time: 216.00 E/A: 1.60 E'Lateral: 10.70 E'Medial: 7.07 E/E' Med: 11.40 E/E' Lat: 7.50 PHT: 63.00 MVA PHT: 3.49 Decel Union: 3.73 Aortic Valve AoV Pk Pk: 1.14 AoV Pk Grad: 5.00 CURTIS: 2.89 LVOT LVOT Pk Pk: 1.17 LVOT Mn Pk: 0.69 LVOT VTI: 0.27 LVOT Pk Grad: 5.00 LVOT Mn Grad: 2.00 LVOT Diam: 1.90 LVOT Area: 2.84 Diastolic Function MV Pk E: 0.81 MV Pk A: 0.51 E/A: 1.60 E'Medial: 7.07 E/E' Med: 11.40 E' Laterial: 10.70 E/E' Lat: 7.50 Right Ventricle TAPSE (mm): 19.10 TVS' Pk: 10.30 Tricuspid Valve TR Pk Pk: 2.23 TR Pk Grad: 20.00 RA Press: 3.00 RVSP: 23.00 Great Vessels Aorta Sinus of Valsalva: 2.50 2.0-3.5 cm Ao Asc: 2.60 2.1-3.4 cm Pulmonary Veins Pulm Vein S/D 1.10 Pulmonary Valve PV Pk Pk: 0.86 Peak PV Grad: 3.00 Updated in Other Vendor System with Status of Final Ehsan Patel MD electronically signed on 07/16/2025 1:38:53 PM with status of Final
--- NOTE | 2025-07-15 08:39 | CA_ITS ---
Acquisition Time: 2025-07-15 10:03:54 Total Exercise Time: 00:05:38 Test Indications: CHEST PAIN Medications: Protocol: MIKE Max HR: 137 BPM 85% of Pred: 161 BPM Max BP: 136/52 mmHG Max Work Load: 7.0 METS exercise stress test with exercise 5 mins 38 secs of Mike Protocol, achieving 85% MPHR, with reports of SOB, no chest pain, without any arrythmias, with normotensive response to exercise. Without any EKG changes meeting criteria for ischemia. In recovery, breathing improved and pt feeling back to baseline. Test reviewed with Dr. Patel. Referred By: Higinio Aragon Electronically Signed By: Dennis Fraser
--- OUTSIDE RECORDS SUMMARY | 2025-07-15 08:49 | XMS_ITS | Encounter Summary ---
Author Organization [facility] Address [address] [place] [address] [address] [place] [address] Care Team Providers Care Meal Temperer Name Role Phone Skyla Hodge NP Primary Care Provider Raffi Valeria Unavailable Encounter Details Date Type Department Care Team (Late st Contact Info) Description 09/23/2022 Abstract [facility] ADULT DENTAL [address] [place] [address] Lamonte Whiteside, ASTRID [address] [place] [address] Social History Tobacco Use Types Packs/Day Years Used Date Smoking Tobacco: Every Day Cigarettes Smokeless Tobacco: Former Alcohol Use Standard Drinks/Week Comments Yes 4 (1 standard drink = 0.6 oz pur e alcohol) 4 beers on the weekends Comments Unknown Sex and Gender Information Value Date Recorded Sex Assigned at Female 08/11/2022 3:30 PM EST Legal Sex Female 3:27 PM EST Gender Identity Female 08/11/2022 3:30 PM EST Sexual Orientation Choose not to disclose 2022 3:30 PM EST COVID-19 Exposure Response Date Recorded In the last 10 days, have yo u been in contact with someone who was confirmed or suspected to have Coronavirus/COVID-19? No / Unsure 09/16/2022 8:46 AM EST documented as of this encounter Plan of Treatment Not on file documented as of this encounter Visit Diagnoses Not on filedocumented in this encounter Care Teams Meal Temperer Relationship Specialty Start Date End Date Skyla Hodge NP [address] [place] [id number] PCP - General Family Medicine 07/05/23 Valeria Nugent 05/02/25 05/14/25 Tia Purcell Public Safety TelecommunicatorRepairer Finished Metal 03/20/24 documented as of this encounter
--- OUTSIDE RECORDS SUMMARY | 2025-07-15 08:49 | XMS_ITS | Encounter Summary ---
Author Organization [facility] Address [address] [facility] [address] [place] [address] Care Team Providers Care Wound Care Rn Name Role Phone Skyla Hodge NP Primary Care Provider [phone] Valeria Nugent Unavailable Reason for Visit * Reason Comments Med Refill Encounter Details Date Type Department Care Team ([facility] st Contact Info) Description 10/30/2023 Refill [facility]EDS [address] [place] [address] Skyla Hodge NP [address] [place] [address] Sleep disturbance Social History Tobacco Use Types Packs/Day Years [...] documented as of this encounter Visit Diagnoses Diagnosis Sleep disturbance Unspecified sleep disturbance documented in this encounter Additional Health Concerns Assessment Noted Time PHQ-9 Depression Total Score: 25 023 2:18 PM EST documented as of this encounter Care Teams Wound Care Rn Relationship Specialty Start Date End Date Skyla Hodge NP [address] [place] [id number] PCP - General Family Medicine 07/05/23 Valeria Nugent 05/02/25 05/14/25 Tia Purcell Technical Support AssociateMission Analyst 03/20/24 documented as of this encounter
--- OUTSIDE RECORDS SUMMARY | 2025-07-15 08:49 | XMS_ITS | Encounter Summary ---
Author Organization [facility] [facility] Address [address] [facility] [address] [place] [address] Care Team Providers Care Rn Flight Name Role Phone Skyla Hodge NP Primary Care Provider [phone] Raffi Valeria Unavailable Reason for Visit * Reason Onset Date Comments appt 11/08/2023 Encounter Details Date Type Department Care Team (Late st Contact Info) Description 11/08/2023 Telephone [facility] ADULT DENTAL [address] [place] [address] Shan, Mary [address] [place] [address] appt Social History Tobacco Use Types Packs/Day [...] waiting list since 06/2023. Offered appt with Tarernesto 11/08 but she has another appt and would not be able to make it. Informed I would inform office that she is waiting for appt DR documented in this encounter Plan of Treatment Not on file documented as of this encounter Visit Diagnoses Not on filedocumented in this encounter Additional Health Concerns Assessment Noted Time PHQ-9 Depression Total Score: 25 023 2:18 PM EST documented as of this encounter Care Teams Rn Flight Relationship Specialty Start Date End Date Skyla Hodge NP [address] [place] [address] PCP - General Family Medicine 07/05/23 Valeria Nugent 05/02/25 05/14/25 Tia Purcell Windows And Doors InstallerCdl Flatbed Truck Driver 03/20/24 documented as of this encounter
--- OUTSIDE RECORDS SUMMARY | 2025-07-15 08:49 | XMS_ITS | Encounter Summary ---
Author Organization [employer] Address [address] [facility] [address] [place] [address] Care Team Providers Care Credit Charge Authorizer Name Role Phone Skyla Hodge NP Primary Care Provider [phone] Valeria Nugent Unavailable Reason for Visit * Reason Onset Date Comments Med Refill 01/14/2025 Encounter Details Date Type Department Care Team (Late st Contact Info) Description 01/14/2025 Refill [facility] MED[facility] [address] [place] [address] Skyla Hodge NP [address] [place] [address] Social History Tobacco Use Types Packs/Day Years [...] documented as of this encounter Care Teams Credit Charge Authorizer Relationship Specialty Start Date End Date Skyla Hodge NP [address] [place] [address] PCP - General Family Medicine 07/05/23 Valeria Nugent 05/02/25 05/14/25 Tia Purcell Casting Wheel OperatorInk Grinder 03/20/24 documented as of this encounter
--- OUTSIDE RECORDS SUMMARY | 2025-07-15 08:49 | XMS_ITS | Encounter Summary ---
Author Organization [facility] Address [address] [place] [address] Care Team Providers Care Front End Architect Name Role Phone Skyla Hodge NP Primary Care Provider [phone] Valeria Nugent Unavailable Reason for Visit * Reason Onset Date Comments Med Refill 06/24/2023 Encounter Details Date Type Department Care Team (Late st Contact Info) Description 06/24/2023 Refill [facility] [address] [address] Fay Foster FNP Elevated BP without diagnosis of hypertension Social History Tobacco Use Types Packs/Day Years Used Date Smoking Tobacco: Every Day Cigarettes Passive Smoke Exposure: Current Smokeless Tobacco: Never Alcohol Use Standard Drinks/Week Comments Yes 4 (1 standard drink = 0.6 oz pur e alcohol) 4 beers on the weekends Depression Answer Date Recorded Patient Health Questionnaire-9 Score 22 06/13/2023 Patient Health Questionnaire-9 Score 22 06/13/2023 Last PHQ-9: Questionnaire Data Not on file 1 08/13/2022 Depression Answer Date Recorded Patient Health Questionnaire-2 Score 6 06/13/2023 Comments Unknown Sex and Gender Information Value Date Recorded Sex Assigned at Female 08/11/2022 3:30 PM EST Legal Sex Female 3:27 PM EST Gender Identity Female 08/11/2022 3:30 PM EST Sexual Orientation Choose not to disclose 2022 3:30 PM EST documented as of this encounter Plan of Treatment Not on file documented as of this encounter Visit Diagnoses Diagnosis Elevated BP without diagnosis of hypertension documented in this encounter Additional Health Concerns Assessment Noted Time PHQ-9 Depression Total Score: 22 023 1:23 PM EST documented as of this encounter Care Teams Front End Architect Relationship Specialty Start Date End Date Skyla Hodge NP [address] [place] [address] PCP - General Family Medicine 07/05/23 Valeria Nugent 05/02/25 05/14/25 Tia Purcell Advisory InternJoint Filler 03/20/24 documented as of this encounter
--- OUTSIDE RECORDS SUMMARY | 2025-07-15 08:49 | XMS_ITS | Encounter Summary ---
Author Organization [facility] Address [address] [place] [address] [address] [place] [address] Care Team Providers Care Cycling Instructor Name Role Phone Skyla Hodge NP Primary Care Provider [phone] Raffi Valeria Unavailable Reason for Visit * Reason Onset Date Comments New Patient 05/25/2023 Encounter Details Date Type Department Care Team ([facility] st Contact Info) Description 05/25/2023 Telephone [facility] [address] [place], [place] [phone] Dwain Anne MD [address] [place], [place] [phone] New Patient Social History Tobacco Use Types Packs/Day Years Used Date Smoking Tobacco: Every Day Cigarettes Smokeless Tobacco: Never Alcohol Use Standard Drinks/Week Comments Yes 4 (1 standard drink = 0.6 oz pur e alcohol) 4 beers on the weekends Depression Answer Date Recorded Patient Health Questionnaire-9 Score 24 05/29/2023 Patient Health Questionnaire-9 Score 24 05/29/2023 Last PHQ-9: Questionnaire Data Not on file 1 07/29/2022 Depression Answer Date Recorded Patient Health Questionnaire-2 Score 6 05/29/2023 Comments Unknown Sex and Gender Information Value Date Recorded Sex Assigned at Female 08/11/2022 3:30 PM EST Legal Sex Female 3:27 PM EST Gender Identity Female 08/11/2022 3:30 PM EST Sexual Orientation Choose not to disclose 2022 3:30 PM EST documented as of this encounter Miscellaneous Notes * Telephone Encounter - Shania Alvarado - 05/25/2023 1:04 PM EDT 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 EFFECTIVE SINCE 05/25/2023 documented in this encounter Plan of Treatment Not on file documented as of this encounter Visit Diagnoses Not on filedocumented in this encounter Care Teams Cycling Instructor Relationship Specialty Start Date End Date Skyla Hodge NP [address] [place] [address] PCP - General Family Medicine 07/05/23 Valeria Nugent 05/02/25 05/14/25 Tia Purcell Senior Oracle Database DeveloperBookkeeping Service Sales Agent 03/20/24 documented as of this encounter
--- OUTSIDE RECORDS SUMMARY | 2025-07-15 08:49 | XMS_ITS | Clinical Summary ---
Author Organization [employer] Address [address] [place] [address] Care Team Providers Care Flight Kitchen Manager Name Role Phone Skyla Hodge NP Primary Care Provider [phone] Allergies No known active allergies Medications * This document contains information received from the source organization and may not represent a complete record from that organization. Blood Pressure Monitor kitIndications: Elevated BP without diagnosis of hypertension Check blood pressure twice a wee. Dx hypertension 1 kit 05/29/20 23 Active cholecalciferol (Vitamin D-3) 125 MCG (5000 UT) capsule Take 1 capsule by mouth Once per day. 09/25/19 24 Active letrozole (Femara) 2.5 MG chemo tabletIndicatio ns:Hormone Receptor Positive Breast Cancer,Malignan t Neoplasm of Breast Take by mouth Once per day. Take with or without food. Active hydrOXYzine HCl (Atarax) 50 MG tabletIndicatio ns:Anxiety and depression Take 1 capsule 4 times daily as needed for anxiety 60 tablet 1 02/21/20 24 Active ARIPiprazole (Abilify) 5 MG tablet Take 1 tablet by mouth Once per day. 08/26/19 25 Active ibuprofen 800 MG tabletIndicatio ns:Chronic pain after breast surgery TAKE 1 TABLET BY MOUTH THREE TIMES DAILY 90 tablet 1 5 5:18 PM EST 02/08/20 25 Active famotidine (Pepcid) 20 MG tabletIndicatio ns:Gastric reflux Take 1 tablet (20 mg) by mouth at bedtime. 90 tablet 02/15/20 25 Active melatonin 5 MG tablet Take 2 tablets (10 mg) by mouth at bedtime. 60 tablet 3 5 5:18 PM EST 02/15/20 25 Active fluticasone (Flonase) 50 MCG/ACT nasal sprayIndication s:Nasal congestion SPRAY 1 SPRAY INTO EACH NOSTRIL EVERY DAY. SHAKE GENTLY. BEFORE FIRST USE, PRIME PUMP. AFTER USE, CLEAN TIP AND REPLACE CAP. 48 g 03/19/20 25 Active calcium carbonate 1500 (600 Ca) MG tabletIndicatio ns:Osteopenia of neck of femur, unspecified laterality TAKE 1 TABLET BY MOUTH TWICE DAILY IN THE MORNING AND IN THE EVENING WITH MEALS 180 tablet 1 04/10/20 25 Active escitalopram (Lexapro) 10 MG tabletIndicatio ns:Severe episode of recurrent major depressive disorder, without psychotic features (CMS/HCC) (HCC) Take 1 tablet (10 mg) by mouth Once per day. 30 tablet 2 5 5:18 PM EST 05/07/20 25 2025 Active zolpidem CR (Ambien CR) 6.25 MG ER tabletIndicatio ns:Sleep disturbance TAKE 1 TABLET BY MOUTH AT BEDTIME NEEDED FOR SLEEP. DO NOT BREAK, CRUSH, DISSOLVE OR CHEW. 30 tablet 5 3:59 PM EST 06/24/20 25 Active zolpidem CR (Ambien CR) 6.25 MG ER tabletIndicatio ns:Sleep disturbance TAKE 1 TABLET BY MOUTH AT BEDTIME NEEDED FOR SLEEP. DO NOT BREAK, CRUSH, DISSOLVE OR CHEW. 30 tablet 05/25/20 25 2024 Discontinued Active Problems Problem Noted Date Diagnosed Date Prolonged grief disorder 06/12/2024 Assessment & Plan (06/13/2024 9:24 AM EST): PROGRESS NOTE: ID: Karin is a 58 y.o. Other choose not to disclose-identified cis-female with No previous hx of MH dx or sx No previous hx of MH services who presents for Depression, Anxiety, and Grief During IBH Consult Karin presenting with depressed mood, Tearful, crying spells , irritable mood, loss of interests/pleasure , sense of isolation/loneliness , psychomotor agitation, fatigue/loss of energy, worthlessness, inappropriate/excessive guilt , difficulty concentrating, excessive worry/anxiety, difficulty controlling worry, and anxiety/worry associated to restlessness and/or feeling keyed-up/On edge , easily fatigued , difficulty concentrating and/or mind going blank , irritability, and muscle tension , and intense yearning, loneliness, focus on reminder of her mother, intense emotional pain, racing thoughts, and identity disruption ; for a period of 18+ mo, for most or all symptoms in the context of mother passing, lack of social support, lack of knowledge of coping skills to manage sxs. PLAN: (check all that apply) New/Additional Services needed Off-site services for Behavioral Health Integration Plan External OP therapy referral and OP psychiatry Referral Patient Self Plan Patient to utilize skills provided in intervention, Patient to reach out to [facility] team as needed, Patient to engage in OP therapy, and Patient to reach out to [facility] as needed Severe episode of recurrent major depressive disorder, without psychotic features ([facility]) 06/12/2024 Assessment & Plan (05/07/2025 7:57 PM EDT): -Declines SI/HI today -acknowledges need for hospitalization, however she is unable to -she is agreeable to trying a different medication for the depression while waiting to re-establish with Psychiatry -encouraged to speak with therapist about change visits to weekly -confirmed she has number to crisis and she agrees to call with any SI/HI -cautioned against use of non prescribed medications Orders: escitalopram (Lexapro) 10 MG tablet; Take 1 tablet (10 mg) by mouth Once per day. JOE (generalized anxiety disorder) 06/12/2024 Assessment & Plan (05/07/2025 7:57 PM EDT): -as above Insomnia due to medical condition 12/27/2023 Assessment & Plan (01/26/2024 5:55 PM EDT): Encouraged pt to discuss side effects of medication with oncology team, pt is comfortable with this plan Diagnosis of malignant neopl asm based on investigation without tissue diagnosis ([facility]) 11/30/2023 Assessment & Plan (11/30/2023 4:22 PM EDT): -patient awaiting diagnosis confirmation -educated on the next steps as it pertains to establishing care with oncologist -informed of PCP's role in her cancer care -advised of the importance of smoking cessation -continue lexapro as prescribed -will have clinician call the patient to assist with initiating therapy services -follow-up 1 month Sleep disturbance 10/27/2023 Assessment & Plan (05/23/2024 7:51 PM EDT): -has attain better sleep with ambien -sleep hygiene measured reviewed and encouraged to implement them on a daily basis as to not become reliant on ambien for sleep -encouraged gentle stretching and meditation practices to promote sleep Assessment & Plan (04/18/2024 11:36 AM EDT): -patient did not attain positive results with use of melatonin and hydroxyzine -will trial ambien CR in addition to sleep hygiene practices which were reviewed today -medication side effects reviewed and fall precautions reviewed -follow-up 1 month Assessment & Plan (10/27/2023 2:01 PM EDT): -likely due to new cancer diagnosis -sleep hygiene measures reviewed: keep a consistent bed and awakening time; avoid coffee, caffinated drink or foods right before bed; avoid looking at phone or TV 30 min before bed; engage in daily physical activity 4-6 hrs before bed; keep the place where you sleep quiet and dark use a white noise machine or ear plugs to block out sound if needed -patient advised to sleep with cell phone outside her room; to prevent sound- wave distrubance. -gentle stretching/ meditate before bed -continue hydroxyzine as ordered -prescription for melatonin sent to pharmacy -follow-up 1 month Fatigue 10/27/2023 Assessment & Plan (10/27/2023 2:09 PM EDT): -may be due to depression -CBC and TSH ordered to rule out anemia and thyroid dysfunction -will evaluate further at next visit -follow-up 1 month Infiltrating ductal carcinoma of left breast (CM S/HCC) 09/13/2023 Overview (12/27/2023): Left breast mass @ 6 o'clock position. Diagnosis via biopsy 09/05/23. -Estrogen receptor: Positive. -Progesterone receptor: Positive. -HER-2: Negative. -Proliferation index: High (25% of tumor cells by Ki-67 immunostaining) Wolf. Er+ [place]+ carcinoma of breast, left (CMS/HCC) 08/25 Streptococcal sore throat and scarlet fever 07/25 Assessment & Plan (08/18/2023 6:48 AM EST): Pt w skin rash,sore throat ,chills ,tested + today for strep throat , neg COVID 19 and flu Pt has strep throat w Scarlet fever -start Amoxicillin 875 mg BID x 10 days -tylenol prn,support tx -continue hydroxyzine can take up to 8 h prn for itching -hydration advised -alarm signs and symptoms discussed w pt Gastric reflux 07/28/2023 Assessment & Plan (05/23/2024 7:48 PM EDT): -weight loss advised -avoid trigger foods such as caffeine, chocolate, spicy foods, food with high fat content, carbonated beverages, highly acidic food and peppermint -avoid late night eating -avoid tight-fitting garments to prevent increasing intragastric pressure -remain upright for at least 1 hour following meals -refill for famotidine provided -follow-up 1 month Assessment & Plan (09/13/2023 9:37 AM EST): -stable on current regimen -continue pepcid 20 mg -diet and lifestyle changes reinforced Assessment & Plan (07/28/2023 12:14 PM EST): -GERD vs. H.pylori infection -H. Pylori stool test ordered -educated on lifestyle and diet changes: avoid spicy, acidic, fried, greasy foods; limit consumption of caffeinated foods and beverages; remain upright for 2-3 hrs after meal; smoking cessation, decrease alcohol consumption. Patient handout provided -rx for famotidine 20 mg nightly sent to pharmacy -will call with H. Pylori results -follow-up in 6 weeks Encounter for Papanicolaou s mear for cervical cancer screening 07/06/2023 Overview (07/06/2023): Never had colonoscopy Mammogram and pap over 5 years ago in [place] Assessment & Plan (09/13/2023 9:45 AM EST): -hepatitis vaccine received today -scheduled for PAP 10/03 Assessment & Plan (07/06/2023 1:37 PM EST): -flu vaccine received today -mammogram ordered -cologuard order placed following shared decision making -will schedule pap for next available appointment -labs ordered for HIV and Hepatitis screening Overweight (BMI 25.0-29.9) 07/06/2023 Assessment & Plan (07/06/2023 1:38 PM EST): -Healthy diet and exercise teaching completed: Eat a variety of fruit and vegetables, whole grains such as whole-wheat flour, bulgur (cracked wheat), oatmeal, and brown rice. Intake protein from beans, nuts, fish, and lean meats. Eat low-fat or fat- free dairy products. Limit highly processed foods such as hot dogs, sandwich meat, etc. Engage in minimum of 150 min of moderate intensity exercise weekly -lipid panel ordered Overweight with body mass index (BMI) 25.0-29.9 07/06/2023 Inadequate housing 06/13/2023 Assessment & Plan (07/05/2023 4:43 PM EST): During IBH Consult Karin presenting with depressed mood, loss of interests/pleasure , changes in sleep difficulty falling asleep and restless, unsatisfying sleep, change in appetite or weight overeating, trouble concentrating, thoughts of worthlessness or guilt, fatigue/loss of energy, inappropriate guilt , hopelessness, worthlessness , difficulty concentrating and restless/keyed up/On edge, easily fatigued, difficulty concentrating/Mind going blank , irritability, muscle tension, and sleep disturbance difficulty falling asleep; for a period of 6-12 mo, for all symptoms in the context of family issues employment concern housing. Karin is going through a lot of stress lately. anniversary of her mom recently led to significant increase of symptoms. PLAN: (check all that apply) Continue with current services (defined as services in the past 12 months) , Behavioral Health Integration Plan Internal Follow up with [facility], Patient Self Plan Patient to utilize skills provided in intervention , Patient to reach out to [facility] team as needed, Comply with medication , Patient to engage in OP therapy , Patient to reach out to [facility] as needed, and Patient to follow-up with external team. Assessment & Plan (06/13/2023 2:03 PM EST): Patient with symptoms of depression and complicated grief. Denied current SI, nor self-harm thought. Reported having SI thoughts with no intent a month ago. Reason for call was to assess symptoms and provide intervention. Recent of her mother and housing instability are exacerbating symptoms. Provided psychoeducation around depression, complicated grief and activities to do in memory of our loved ones. Discussed the importance of continuing medication as prescribed by PCP and ways to transform emotional pain into love. Karin has a referral placed for OP with [facility]. She agreed to contact clinician if needed during her next physical appointment with PCP. At this time Karin Tanelisusan Zavala Yonathan meets criteria for Visit Diagnoses: Problem List Items Addressed This Visit Other Current severe episode of major depressive disorder without psychotic features without prior episode (CMS/HCC) Complicated grieving Housing problems Patient ready to address current needs Yes Strengths include awareness of the problem, desire to get better. PLAN: 1. Follow up with [facility]: Recommended for follow-up: as needed 2. Patient goal is to be connected with individual therapy 3. Behavioral Recommendations a. Follow PCP recommendations regarding meds b. Referral for OP services (in place) c. Incorporate activities to do in memory of loved ones d. Practice self-care and self-compassion during healing process Current severe episode of ma brian depressive disorder without psychotic features without prior episode (CMS/HCC) 05/29/2023 Assessment & Plan (12/07/2023 10:35 AM EDT): PLAN: (check all that apply) Continue with current services (defined as services in the past 12 months) Behavioral Health Integration Plan External OP therapy referral Patient Self Plan Patient to utilize skills provided in intervention , Patient to reach out to [facility] team as needed, Comply with medication , and Patient to engage in OP therapy PCP managing medication OP therapy and psychiatry referral was placed on 11/20/23 to [facility] Provided hotline Assessment & Plan (11/15/2023 10:30 AM EDT): New/Additional Services needed Off-site services for Behavioral Health Integration Plan External OP therapy referral and OP psychiatry Referral Patient Self Plan Patient to reach out to [facility] team as needed, Comply with medication , and Patient to engage in OP therapy Assessment & Plan (09/12/2023 3:07 PM EST): PLAN: (check all that apply) New/Additional Services needed PCP management Continue with current services (defined as services in the past 12 months) Behavioral Health Integration Plan Internal Cold handoff to [facility] Patient Self Plan Patient to utilize skills provided in intervention , Patient to reach out to [facility] team as needed, Patient to engage in OP therapy , Patient to follow-up with external team, and patient to connect with care management team at [facility] to enroll in C3 CM program. Messaged sent to PCP and Blue team nurses to follow up with patient around new diagnosis and medications for sleep. Assessment & Plan (07/05/2023 4:43 PM EST): During IBH Consult Karin presenting with depressed mood, loss of interests/pleasure , changes in sleep difficulty falling asleep and restless, unsatisfying sleep, change in appetite or weight overeating, trouble concentrating, thoughts of worthlessness or guilt, fatigue/loss of energy, inappropriate guilt , hopelessness, worthlessness , difficulty concentrating and restless/keyed up/On edge, easily fatigued, difficulty concentrating/Mind going blank , irritability, muscle tension, and sleep disturbance difficulty falling asleep; for a period of 6-12 mo, for all symptoms in the context of family issues employment concern housing. Karin is going through a lot of stress lately. anniversary of her mom recently led to significant increase of symptoms. PLAN: (check all that apply) Continue with current services (defined as services in the past 12 months) , Behavioral Health Integration Plan Internal Follow up with [facility], Patient Self Plan Patient to utilize skills provided in intervention , Patient to reach out to [facility] team as needed, Comply with medication , Patient to engage in OP therapy , Patient to reach out to [facility] as needed, and Patient to follow-up with external team. Assessment & Plan (06/13/2023 2:03 PM EST): Patient with symptoms of depression and complicated grief. Denied current SI, nor self-harm thought. Reported having SI thoughts with no intent a month ago. Reason for call was to assess symptoms and provide intervention. Recent of her mother and housing instability are exacerbating symptoms. Provided psychoeducation around depression, complicated grief and activities to do in memory of our loved ones. Discussed the importance of continuing medication as prescribed by PCP and ways to transform emotional pain into love. Karin has a referral placed for OP with [facility]. She agreed to contact clinician if needed during her next physical appointment with PCP. At this time Karin Zavala Clairkeily meets criteria for Visit Diagnoses: Problem List Items Addressed This Visit Other Current severe episode of major depressive disorder without psychotic features without prior episode ([facility]) Complicated grieving Housing problems Patient ready to address current needs Yes Strengths include awareness of the problem, desire to get better. PLAN: 1. Follow up with [facility]: Recommended for follow-up: as needed 2. Patient goal is to be connected with individual therapy 3. Behavioral Recommendations a. Follow PCP recommendations regarding meds b. Referral for OP services (in place) c. Incorporate activities to do in memory of loved ones d. Practice self-care and self-compassion during healing process Assessment & Plan (05/30/2023 3:42 PM EST): 1. Behavioral Recommendations a. Referral to OP therapy services b. Brief encounter follow up with clinician to support grieving process c. Start antidepressant medication per indicated by her medical provider. Complicated grieving 05/29/2023 Assessment & Plan (07/05/2023 4:43 PM EST): During IBH Consult Karin presenting with depressed mood, loss of interests/pleasure , changes in sleep difficulty falling asleep and restless, unsatisfying sleep, change in appetite or weight overeating, trouble concentrating, thoughts of worthlessness or guilt, fatigue/loss of energy, inappropriate guilt , hopelessness, worthlessness , difficulty concentrating and restless/keyed up/On edge, easily fatigued, difficulty concentrating/Mind going blank , irritability, muscle tension, and sleep disturbance difficulty falling asleep; for a period of 6-12 mo, for all symptoms in the context of family issues employment concern housing. Karin is going through a lot of stress lately. anniversary of her mom recently led to significant increase of symptoms. PLAN: (check all that apply) Continue with current services (defined as services in the past 12 months) , Behavioral Health Integration Plan Internal Follow up with [facility], Patient Self Plan Patient to utilize skills provided in intervention , [facility] as needed, Comply with medication , Patient to engage in OP therapy , Patient to reach out to [facility] as needed, and Patient to follow-up with external team. Assessment & Plan (06/13/2023 2:03 PM EST): Patient with symptoms of depression and complicated grief. Denied current SI, nor self-harm thought. Reported having SI thoughts with no intent a month ago. Reason for call was to assess symptoms and provide intervention. Recent of her mother and housing instability are exacerbating symptoms. Provided psychoeducation around depression, complicated grief and activities to do in memory of our loved ones. Discussed the importance of continuing medication as prescribed by PCP and ways to transform emotional pain into love. Karin has a referral placed for OP with [facility]. She agreed to contact clinician if needed during her next physical appointment with PCP. At this time Karin Zavala Clairkeily meets criteria for Visit Diagnoses: Problem List Items Addressed This Visit Other Current severe episode of major depressive disorder without psychotic features without prior episode ([facility]/HCC) Complicated grieving Housing problems Patient ready to address current needs Yes Strengths include awareness of the problem, desire to get better. PLAN: 1. Follow up with [facility]: Recommended for follow-up: as needed 2. Patient goal is to be connected with individual therapy 3. Behavioral Recommendations a. Follow PCP recommendations regarding meds b. Referral for OP services (in place) c. Incorporate activities to do in memory of loved ones d. Practice self-care and self-compassion during healing process Current severe episode of aimee torres depressive disorder with psychotic features without prior episode ([facility]) 05/29/2023 Dental calculus 09/05/2022 Gingival recession, generalized 09/05/2022 Periodontal disease 09/05/2022 Gingival bleeding 09/05/2022 Resolved Problems Problem Noted Date Diagnosed Date Resolved Date Anxiety and depression 07/06/202311/14 Assessment & Plan (10/27/2023 2:06 PM EDT): -symptoms enhanced by new breast cancer diagnosis -depression may also be contributing to symptom of fatigue. Will order CBC and TSH to rule out metabolic dysfunction -will add 10 mg dose to existing 20 mg lexapro dose for a total of 30 mg daily -continue to engage with therapist -follow-up 1 month Assessment & Plan (09/13/2023 9:35 AM EST): -patient reports stability on current dose -medications refilled Assessment & Plan (07/06/2023 1:46 PM EST): -PHQ-9 score 25 -JOE 7 screen score 22 -lexapro dose increased to 20 mg every day -hydralazine dose increased to 50 mg QID PRN - rocio Leigh in to speak with patient -continue relationship with therapist -follow up in 1 month Encounters * This document contains information received from the source organization and may not represent a complete record from that organization. Date Type Department Care Team Description 06/23/2025 Refill [facility] [address] [place] [address] Skyla Hodge NP Sleep disturbance 06/23/2025 Telephone [facility] [address] [place] [address] Skyla Hodge NP Chart Prep 05/22/2025 Refill [facility] [address] [place] [address] Skyla Hodge NP Sleep disturbance 05/21/2025 Telephone [facility] [address] [place] [address] Skyla Hodge NP Chart Prep 05/18/2025 Travel 05/14/2025 Patient Outreach [facility] [address] [place] [address] Skyla Hodge NP Care Coordination (Communication to pts assigned CP Coordinator) 05/07/2025 3:30 PM EDT Office Visit [facility] [address] [place] [phone] Skyla Hodge NP Severe episode of recurrent major depressive disorder, without psychotic features (CMS/HCC) (HCC) (Primary Dx); JOE (generalized anxiety disorder); Routine adult health maintenance 05/07/2025 Travel 05/06/2025 Travel 05/06/2025 Telephone [facility] [address] [place] [phone] Skyla Hodge NP Chartprep 05/02/2025 Patient Outreach [facility] [address] [place] [address] Skyla Hodge NP Care Coordination ([facility] ED Follow up) 05/02/2025 Patient Outreach [facility] [address] [place] [address] Skyla Hodge NP Care Coordination (CP Care Coordination Chart Review) 05/02/2025 Patient Outreach [address] [address] Skyla Hodge NP 04/16/2025 Refill [facility] [address] [place] [phone] Skyla Hodge NP Sleep disturbance from Last 3 Months Immunizations Immunization Administration Dates Next Due Hep B, adult 02/26/2024,09/25/2023,08/25/2023 Influenza injectable quadriv alent preservative free 07/05/2023 Influenza, seasonal, injecta ble, preservative free 06/12/2024 Pfizer Covid-19 Vaccine 12+ 08/03/2021,,11/19/2020 Pneumococcal Conjugate PCV 20 06/12/2024 Tdap 06/12/2024 Zoster, Recombinant 01/06/2025,10/17/2024 Family History Medical History Relation Name Comments Heart disease Father brain tumor Father Diabetes Mother Diabetes type II Mother Heart disease Mother Breast cancer Other maternal aunt Relation Name Status Comments Father Mother Other maternal aunt Social History Tobacco Use Types Packs/Day Years Used Date Smoking Tobacco: Every Day Cigarettes Passive Smoke Exposure: Current Smokeless Tobacco: Never Tobacco Cessation:Ready to Q uit: Not Asked; Counseling Given: Not Answered Alcohol Use Standard Drinks/Week Comments Yes 4 (1 standard drink = 0.6 oz pur e alcohol) 4 beers on the weekends Alcohol Answer Date Recorded How often do you have a drink containing alcohol ? 1 05/07/2025 How many drinks containing a lcohol do you have on a typical day when you are drinking? 1 05/07/2025 How often do you have six or more drinks on one occasion? 0 05/07/2025 Depression Answer Date Recorded Patient Health Questionnaire-9 Score 27 05/07/2025 Patient Health Questionnaire-9 Score 27 05/07/2025 Last PHQ-9: Questionnaire Data Not on file 1 Housing Stability Answer Date Recorded What is your housing situation today? I have [place] 05/07/[address] you li ve. Do you have problems with any of the following? None of the above 05/07/2025 Food Insecurity Answer Date Recorded Within the past 12 months, y ou worried that your food would run out before you got money to buy more: Often true 05/07/2025 Within the past 12 months,th e food you bought just didn't last and you didn't have enough money to get more: Often true Transportation Answer Date Recorded In the past 12 months, has l ack of transportation kept you from medical appts, meetings, work or from getting things needed for daily living? Yes, it has kept me from medical appointments or getting medications. 05/07/2025 Utilities Answer Date Recorded In the past 12 months, has t he [employer], gas, oil or water company threatened to shut off services in your home? No 05/07/2025 Depression Answer Date Recorded Patient Health Questionnaire-2 Score 6 05/07/2025 Internet Access Answer Date Recorded Internet Access Q1 Yes 05/07/2025 Internet Access Q2 Not on file 05/07/2025 Comments Unknown Sex and Gender Information Value Date Recorded Sex Assigned at Female 08/11/2022 3:30 PM EST Legal Sex Female 3:27 PM EST Gender Identity Female 08/11/2022 3:30 PM EST Sexual Orientation Choose not to disclose 2022 3:30 PM EST Last Filed Vital Signs Vital Sign Reading Time Taken Comments Blood Pressure 122/78 05/07/2025 3:39 PM EDT Pulse 54 05/07/2025 3:39 PM EDT Temperature 36.9 C (98.4 F) 05/07/2025 3:39 PM EDT Respiratory Rate 19 03/28/2025 3:22 PM EDT Oxygen Saturation 98% 05/07/2025 3:39 PM EDT Inhaled Oxygen Concentration - - Weight 59.2 kg (130 lb 9.6 oz) 05/07/2025 3:39 P M EDT Height 157.5 cm (5' 2 ) 05/07/2025 3:39 PM EDT Body Mass Index 23.89 05/07/2025 3:39 PM EDT Plan of Treatment Health Maintenance Due Date Last Done Comments CT Colonography 09/26/1965 Colonoscopy 09/26/1965 FIT 09/26/1965 Sigmoidoscopy 09/26/1965 Pap Smear 09/26/1986 Cervical Cancer Screening 09/27/1995 HPV/Cotest 09/27/1995 Dental Oral Exam 02/10/2023 08/12/2022 Dental Prophylaxis 03/06/2023 09/05/2022 Dental X-Ray: Bitewings 08/13/2023 08/12/2022 Mammogram 10/26/2023 09/25/2023, 02/0 03/2024, 09/01/2023, Additional history exists SDOH Screening 07/28/2024 07/28/2023 FOBT 08/16/2024 08/16/2023 COVID-19 Vaccine ( season) 2025 08/03/2021, 12/23/2020, 11/19/2020 Influenza Vaccine (#1) 2025 06/12/2024, 2022 Dental X-Ray: Full Mouth 08/13/2025 08/12/2022 Depression Monitoring 11/05/2025 05/07/2025, 025 Alcohol/Substance Use Screening 05/07/2026 05/07/2025 Disability Screening 05/07/2026 05/07/2025 Tobacco Screening 05/07/2026 05/07/2025 Colorectal Cancer Screening 08/16/2026 FIT DNA/Cologuard 08/16/2026 08/16/2023 Lipid Panel 06/19/2029 06/19/2024, 07/26/2023 DTaP/Tdap/Td Vaccines (2 - Td or Tdap) 06/12/2034 06/12/2024 RSV Patients and Patients Aged 60 years or older (1 - 1-dose 75+ series) 09/26/2040 Hepatitis B Vaccines Completed 02/26/2024, 09/25/2023, 08/25/2023 Pneumococcal Vaccine: 50+ Years Completed 06/12/2024 HIV Screening Completed 06/19/2024 Hepatitis C Screening Completed 06/19/2024 Zoster Vaccines Completed 01/06/2025, 10/17/2024 HIB Vaccines Aged Out No longer eligi [...] patient's age to complete this topic Meningococcal Vaccine Aged Out No raghavendra marcus eligible based on patient's age to complete this topic RSV under 20 months Aged Out No longe r eligible based on patient's age to complete this topic Rotavirus Vaccines Aged Out No longer eligible based on patient's age to complete this topic Procedures Procedure Name Priority Date/Time Associated Diagnosis Comments HEPATITIS C AB W/REFL TO HCV RNA, QN, PCR Routine 06/19/2024 12:43 PM EST Encounter for health-related screening HIV 1/2 ANTIGEN/ANTIBODY, FOURTH GENERATION W/RFL Routine 06/19/2024 12:43 PM EST Encounter for health-related screening LIPID PANEL, STANDARD Routine 06/19/2024 12:43 PM EST Overweight (BMI 25.0-29.9) BI MR BREAST W AND WO CONTRAST BILATERAL Routine 09/25/2023 4:00 PM EST LAB COLOGUARD COLON CANCER SCREEN Routine 08/16/2023 1:00 PM EST Routine adult health maintenance PROPHYLAXIS - ADULT Routine 09/05/2022 9 :00 AM EST Dental calculus INTRAORAL - COMPLETE SERIES OF RADIOGRAPHIC IMAGES Routine 08/12/2022 3:00 PM EST COMPREHENSIVE ORAL EVALUATION - NEW OR ESTABLISHED PATIENT Routine 08/12/2022 3:00 PM EST from Last 3 Months or Most Recently Relevant to Health Maintenance Results * Hepatitis C Antibody with Reflex to HCV, RNA, Quantitative, Real-Time PCR (06/19/2024 12:43 PM EST) Hepatitis C Antibody Nonreactive Nonreactive [facility] Comment:Antibodies to HCV no t detected; does not exclude early acuteHCV infection. Blood Venous blood specimen / Unknown 06/19/2024 12:43 PM EST 06/19/2024 1:12 PM EST Skyla Hodge [employer] LAB BLOOD ORDERABLES Final Resu lt [facility] [address] [place] [phone] * HIV-1/2 Antigen and Antibodies, Fourth Generation, with Reflexes (06/19/2024 12:43 PM EST) HIV AB/AG Nonreactive Nonreactive [facility] Comment:HIV-1 p24 Ag and/or HIV-1/HIV-2 Ab not detected.A test result that is nonreactive does not exclude thepossibility of exposure to or infection with HIV-1 and/orHIV-2. Nonreactive results in this assay for individualswith prior exposure to HIV-1 and/or HIV-2 may be due toantigen and antibody levels that are below the limit ofdetection of this assay.The [employer] HIV Ag/Ab Combo assay result andsupplemental assay results should be interpreted inconjunction with the patient's clinical presentation,history and other laboratory results. If the results areinconsistent with clinical evidence, additional testing issuggested to confirm the result. Blood Venous blood specimen / Unknown 06/19/2024 12:43 PM EST 06/19/2024 1:12 PM EST [facility] Final Resu lt Performing Organization Address [facility] Co de Phone Number [facility] [address] [place] [address] [phone] * (ABNORMAL) Lipid Panel, Standard (06/19/2024 12:43 PM EST) Triglycerides 118 <150 mg/dL [facility] Comment:Desirable Triglyceri de: less than 150 mg/dLBorderline High Triglyceride 150-199 mg/dLHigh Triglyceride: 200-499 mg/dLVery High Triglyceride: greater than or equal to 5OO mg/dL Cholesterol 153 <200 mg/dL [facility] Comment:Desirable Cholestero l: less than 200 mg/dLBorderline High Cholesterol: 200-239 mg/dLHigh Cholesterol: greater than 239 mg/dL LDL Cholesterol Calculated 90 <100 mg/dL [facility] Comment:Desirable LDL: less than 100 mg/dLNear Optimal/Above Optimal LDL: 110- 129 mg/dLBorderline High LDL: 130-159 mg/dLHigh LDL: 160-189 mg/dLVery High LDL: greater than or equal to 190 mg/dL HDL Cholesterol 40(L) >40 mg/dL [facility] Comment:Desirable HDL: great er than 40 mg/dL Note: This HDL assay may give artificially low results in patients with liver disease. Blood Venous blood specimen / Unknown 06/19/2024 12:43 PM EST 06/19/2024 1:12 PM EST Skyla Hodge LAB BLOOD ORDERABLES Final Resu lt Performing Organization Address [facility] Co de Phone Number [facility] [address] [place] [address] [phone] * BI MR Breast w and w/o Contrast Bilateral (09/25/2023 4:00 PM EST) Anatomical Region Laterality Modality Breast Bilateral Magnetic Resonan ce 09/25/2023 4:00 PM EST Narrative 10/02/2023 10:33 AM EDT [address] [address] Magnetic Resonance Report Signed Patient: Karin Rojas MR# : [id number] : 09/26/1965 Acct:[id number] Age/Sex: 57 / F ADM Date: 09/25/23 Loc: HO.MRI Attending Dr: Sumit Roberts MD Ordering Physician: Sumit Roberts MD Date of Service: 09/25/23 Procedure(s): MR breast BI wo/w con Accession Number(s): [id number] cc: Skyla Hodge; Sumit Roberts MD EXAMINATION: MR BREAST WITHOUT AND WITH CONTRAST, BILATERAL CLINICAL INFORMATION: 57-year-old female with new diagnosis of invasive ductal carcinoma grade 2 with known residual calcifications on mammography. COMPARISON: Correlation to mammograms of 07/26/2023 and ultrasound of 08/28/2023. TECHNIQUE: Imaging was performed with a dedicated breast coil. Prior to the administration of contrast, bilateral axial T1 and bilateral axial T2 weighted sequences were obtained. After the uneventful administration of?6.5 mL of Gadavist, dynamic contrast-enhanced VIBRANT series through the breasts in the axial plane were performed. Subtracted images were performed and reviewed. A delayed sagittal sequence through both breasts was acquired. Additionally, CAD post-processing, including maximum intensity projections, 3-D reconstructions and kinetic analysis, were performed an independent workstation and reviewed by the interpreting radiologist is a portion of this exam. FINDINGS: The patient's fibroglandular tissue demonstrates mild background enhancement. LEFT BREAST: There is an irregularly-shaped enhancing mass at 6-7 o'clock, 2 cm from the nipple, measuring 1.6 cm craniocaudad dimension by 2.1 cm AP dimension by 1.1 cm transverse dimension. This demonstrates mixed rapid wash-in washout plateau and progressive kinetics and is consistent with known biopsied invasive ductal carcinoma (MR sequence #101, image 83/110). There is linear nonmass enhancement extending posteriorly from the incident tumor measuring 2 cm in AP length; this is suspicious for additional in situ cancer (MR sequence #101 image 84/110). In addition, there is linear nonmass enhancement anteriorly from the tumor to the nipple areolar complex, measuring 1.3 cm. This is also suspicious for additional ductal carcinoma in situ (MR sequence #101 image 85/110). The total length of the invasive and probable noninvasive component is 5.8 cm. There are no other areas of mass or nonmass enhancements. There are no additional findings on T2-weighted imaging or kinetic curve analysis. RIGHT BREAST: There is linear nonmass enhancement at 9 o'clock, 8.4 cm from the nipple, measuring 1.5 cm. This demonstrates mixed plateau and progressive kinetics and is considered suspicious (MR sequence #101, image 68/110). There are a few other scattered foci of enhancement demonstrating subthreshold and progressive kinetics. There are no other suspicious findings. There are no additional findings on T2-weighted imaging or kinetic curve analysis. There is no suspicious internal mammary chain or axillary adenopathy. Limited views of the chest and abdomen are unremarkable. MR/MR breast BI wo/w con IMPRESSION: No MR specific evidence of malignancy. ASSESSMENT: LEFT BREAST: BI-RADS 6 - Known malignancy. RIGHT BREAST: BI-RADS 4 - Suspicious, biopsy is recommended. RECOMMENDATIONS: If breasts-conserving therapy is being considered, then bracketing of the anterior and posterior components of the lesion in the left breast is needed. An RF tag is already been placed at the anterior aspect of the breast. The posterior portion of the lesion can be localized under MRI guidance. MRI guided biopsy for the nonmass enhancement in the right breast. The findings were discussed with Rick ROBLES at 9:55 AM on 10/02/2019 Dictated By: Linden Penn MD Signed By: <Electronically signed by Linden Penn MD in OV> 10/02/23 1029 DD/ 1600 TD/TT: Financial Agent: YING Procedure Note Donotuseinterpreter, Image - 10/02/[address] [address] Magnetic Resonance Report Signed Patient: Shakira Rojas# : [id number] : 09/26/1965Acct:[id number] Age/Sex: 57 / FADM Date: 09/25/23 Loc: HO.MRI Attending Dr: Sumit Roberts MD Ordering Physician: Sumit Roberts MD Date of Service: 09/25/23 Procedure(s): MR breast BI wo/w con Accession Number(s): [id number] cc: Skyla Hodge; Sumit Roberts MD EXAMINATION: MR BREAST WITHOUT AND WITH CONTRAST, BILATERAL CLINICAL INFORMATION: 57-year-old female with new diagnosis of invasive ductal carcinoma grade 2 with known residual calcifications on mammography. COMPARISON: Correlation to mammograms of 07/26/2023 and ultrasound of 08/28/2023. TECHNIQUE: Imaging was performed with a dedicated breast coil. Prior to the administration of contrast, bilateral axial T1 and bilateral axial T2 weighted sequences were obtained. After the uneventful administration of?6.5 mL of Gadavist, dynamic contrast-enhanced VIBRANT series through the breasts in the axial plane were performed. Subtracted images were performed and reviewed. A delayed sagittal sequence through both breasts was acquired. Additionally, CAD post-processing, including maximum intensity projections, 3-D reconstructions and kinetic analysis, were performed an independent workstation and reviewed by the interpreting radiologist is a portion of this exam. FINDINGS: The patient's fibroglandular tissue demonstrates mild background enhancement. LEFT BREAST: There is an irregularly-shaped enhancing mass at 6-7 o'clock, 2 cm from the nipple, measuring 1.6 cm craniocaudad dimension by 2.1 cm AP dimension by 1.1 cm transverse dimension. This demonstrates mixed rapid wash-in washout plateau and progressive kinetics and is consistent with known biopsied invasive ductal carcinoma (MR sequence #101, image 83/110). There is linear nonmass enhancement extending posteriorly from the incident tumor measuring 2 cm in AP length; this is suspicious for additional in situ cancer (MR sequence #101 image 84/110). In addition, there is linear nonmass enhancement anteriorly from the tumor to the nipple areolar complex, measuring 1.3 cm. This is also suspicious for additional ductal carcinoma in situ (MR sequence #101 image 85/110). The total length of the invasive and probable noninvasive component is 5.8 cm. There are no other areas of mass or nonmass enhancements. There are no additional findings on T2-weighted imaging or kinetic curve analysis. RIGHT BREAST: There is linear nonmass enhancement at 9 o'clock, 8.4 cm from the nipple, measuring 1.5 cm. This demonstrates mixed plateau and progressive kinetics and is considered suspicious (MR sequence #101, image 68/110). There are a few other scattered foci of enhancement demonstrating subthreshold and progressive kinetics. There are no other suspicious findings. There are no additional findings on T2-weighted imaging or kinetic curve analysis. There is no suspicious internal mammary chain or axillary adenopathy. Limited views of the chest and abdomen are unremarkable. MR/MR breast BI wo/w con IMPRESSION: No MR specific evidence of malignancy. ASSESSMENT: LEFT BREAST: BI-RADS 6 - Known malignancy. RIGHT BREAST: BI-RADS 4 - Suspicious, biopsy is recommended. RECOMMENDATIONS: If breasts-conserving therapy is being considered, then bracketing of the anterior and posterior components of the lesion in the left breast is needed. An RF tag is already been placed at the anterior aspect of the breast. The posterior portion of the lesion can be localized under MRI guidance. MRI guided biopsy for the nonmass enhancement in the right breast. The findings were discussed with Rick ROBLES at 9:55 AM on 10/02/2019 Dictated By: Linden Penn MD Signed By: <Electronically signed by Linden Penn MD in OV> 10/02/23 1029 DD/ 1600 TD/TT: Financial Agent: YING [facility] External Provider IMG MRI PROCEDURES Final Result * Cologuard?? colon cancer screening (08/16/2023 1:00 PM EST) Cologuard Result Negative Negative 08/25/19 5:12 PM EST [employer] (CLIA #:[id number]) Comment: NEGATIVE TEST RESULT. A negative Cologuard result indicates a low likelihood that a colorectal cancer (CRC) or advanced adenoma (adenomatous polyps with more advanced pre-malignant features) is present. The chance that a person with a negative Cologuard test has a colorectal cancer is less than 1 in 1500 (negative predictive value >99.9%) or has an advanced adenoma is less than 5.3% (negative predictive value 94.7%). These data are based on a prospective cross-sectional study of 10,000 individuals at average risk for colorectal cancer who were screened with both Cologuard and colonoscopy. (Emanuel Patel al, N Engl J Med 2014;370(14):3778-0205) The normal value (reference range) for this assay is negative. COLOGUARD RE-SCREENING RECOMMENDATION: Periodic colorectal cancer screening is an important part of preventive healthcare for asymptomatic individuals at average risk for colorectal cancer. Following a negative Cologuard result, the [place] [employer] Society and U.S. Multi-Society Task Force screening guidelines recommend a Cologuard re-screening interval of 3 years. References: [place] [employer] Guideline for Colorectal Cancer Screening: https://www.cancer.org/cancer/mjxeh-vyluaa-yeduzg/eprkkxmtz-iopwwzchx-jryufow/ac s-rec ommendations.html.; Thai YANCEY, Janette URIARTE, Maegan FranciscoK, Colorectal Cancer Screening: Recommendations for Physicians and Patients from the U.S. Multi-Society Task Force on Colorectal Cancer Screening , Am J Gastroenterology 2017; 112:6494-1601. TEST DESCRIPTION: Composite algorithmic analysis of stool DNA-biomarkers with hemoglobin immunoassay. Quantitative values of individual biomarkers are not reportable and are not associated with individual biomarker result reference ranges. Cologuard is intended for colorectal cancer screening of adults of either sex, 45 years or older, who are at average-risk for colorectal cancer (CRC). Cologuard has been approved for use by the U.S. FDA. The performance of Cologuard was established in a cross sectional study of average-risk adults aged 50-84. Cologuard performance in patients ages 45 to 49 years was estimated by sub-group analysis of near-age groups. Colonoscopies performed for a positive result may find as the most clinically significant lesion: colorectal cancer [4.0%], advanced adenoma (including sessile serrated polyps greater than or equal to 1cm diameter) [20%] or non- advanced adenoma [31%]; or no colorectal neoplasia [45%]. These estimates are derived from a prospective cross-sectional screening study of 10,000 individuals at average risk for colorectal cancer who were screened with both Cologuard and colonoscopy. (Emanuel Rosa, N Engl J Med 2014;370(14):2371-2672.) Cologuard may produce a false negative or false positive result (no colorectal cancer or precancerous polyp present at colonoscopy follow up). A negative Cologuard test result does not guarantee the absence of CRC or advanced adenoma (pre-cancer). The current Cologuard screening interval is every 3 years. ([place] [employer] and U.S. Multi-Society Task Force). Cologuard performance data in a 10,000 patient pivotal study using colonoscopy as the reference method can be accessed at the following location: www.[employer]/results. Additional description of the Cologuard test process, warnings and precautions can be found at www.cologuard.com. Stool specimen (specimen) 08/16/2023 1:00 PM EST 08/17/2023 2:11 PM EST Skyla Hodge [employer] LAB MOLECULAR DIAGNOSTICS ORDER SU Final Result [employer] (CLIA #:[id number]) [place] [address], from Last 3 Months or Most Recently Relevant to Health Maintenance Insurance [facility] C[place] AD[place] Care Teams Flight Kitchen Manager Relationship Specialty Start Date End Date Skyla Hodge NP [address] [place] [phone] PCP - General Family Medicine 07/05/23 Tia Purcell Air Bag CurerSoup Mixer 03/20/24
--- OUTSIDE RECORDS SUMMARY | 2025-07-15 08:49 | XMS_ITS | Encounter Summary ---
Author Organization [employer] [facility] Address [address] [place] [address] [address] [place] [address] Care Team Providers Care Workplace Rehabilitation Officer Name Role Phone Skyla Hodge NP Primary Care Provider [phone] Valeria Nugent Unavailable Encounter Details Date Type Department Care Team (Late st Contact Info) Description 09/19/2022 Abstract [facility] [address] [place] [address] Reese Nicole DDS [address] [place] [address] Social History Tobacco Use Types Packs/Day Years [...] on filedocumented in this encounter Care Teams Workplace Rehabilitation Officer Relationship Specialty Start Date End Date Skyla Hodge NP [address] [place] [phone] PCP - General Family Medicine 07/05/23 Valeria Nugent 05/02/25 05/14/25 Tia Purcell Hotel ControllerBridge Attacher 03/20/24 documented as of this encounter
--- OUTSIDE RECORDS SUMMARY | 2025-07-15 08:50 | XMS_ITS | Clinical Summary ---
Author Organization [facility] Address [address] [place] [address] Phone Care Team Providers Care Account Leader Name Role Phone Physician, Pcp Unknown Primary Care Provider Arely vailable Allergies No known active allergies Encounters Date Type Department Care Team Description 05/01/2025 12:17 PM EDT - 05/01/2025 4:[address] [facility] Emergency [address] [place] [address] Luiz Garcia MD Depression, unspecified depression type (Primary Dx) Discharge Disposition: Home or Self Care from Last 3 Months Social History Tobacco Use Types Packs/Day Years Used Date Smoking Tobacco: Never Assessed Comments Unknown Sex and Gender Information Value Date Recorded Sex Assigned at Not on file Legal Sex Female 7:32 PM EST Gender Identity Not on file Sexual Orientation Not on file Last Filed Vital Signs Vital Sign Reading Time Taken Comments Blood Pressure 133/80 05/01/2025 3:00 PM EDT Pulse 70 05/01/2025 3:00 PM EDT Temperature 36.7 C (98.1 F) 05/01/2025 3:00 PM EDT Respiratory Rate 19 05/01/2025 3:00 PM EDT Oxygen Saturation 100% 05/01/2025 3:00 PM EDT Inhaled Oxygen Concentration - - Weight 56.7 kg (125 lb) 05/01/2025 12:12 PM EDT Height 157.5 cm (5' 2 ) 05/01/2025 12:12 PM EDT Body Mass Index 22.86 05/01/2025 12:12 PM EDT Plan of Treatment Health Maintenance Due Date Last Done Comments Breast Cancer Screening 09/26/1965 Cervical Cancer Screening: P ap Smear 09/26/1986 Depression Screening 07/24/2024 COVID-19 Vaccine (4 - 2024-2 6 season) 2025 08/03/2021, 12/23/2020, 11/19/2020 Influenza Vaccine (#1) 2025 , 07/05/2023 Social Influencers of Health Screening 05/01/2025 Colorectal Cancer Screening: FIT-DNA (Cologuard) 08/16/2026 08/16/2023 Cholesterol Screening (Lipid Panel) 06/19/2029 06/19/2024 DTaP,Tdap,and Td Vaccines (2 - Td or Tdap) 06/12/2034 06/12/2024 RSV Immunization Adult Patients (1 - 1-dose 75+ series) 09/26/2040 Hepatitis [...] to complete this topic RSV Immunization Patients Under 20 months Aged Out No longer eligible b ased on patient's age to complete this topic Varicella Vaccines Aged Out No longer eligible based on patient's age to complete this topic Procedures Procedure Name Priority Date/Time Associated Diagnosis Comments METHADONE SCREEN, URINE STAT 05/01/2025 1:59 PM EDT PHENCYCLIDINE, URINE STAT 05/01/2025 1:59 PM EDT BUPRENORPHINE SCREEN, URINE STAT 05/01/2025 1:59 PM EDT DRUG ABUSE SCREEN 8A PANEL, URINE STAT 05/01/2025 1:59 PM EDT CBC WITH AUTO DIFFERENTIAL STAT 05/01/2025 1:58 PM EDT SALICYLATE LEVEL STAT 05/01/2025 1:58 PM EDT ACETAMINOPHEN LEVEL STAT 05/01/2025 1 :58 PM EDT ETHANOL STAT 05/01/2025 1:58 PM EDT COMPREHENSIVE METABOLIC PANEL STAT 05/01/2025 1:58 PM EDT CBC AND DIFFERENTIAL STAT 05/01/2025 1:58 PM EDT from Last 3 Months Results * (ABNORMAL) Drug abuse screen 8a panel, urine (05/01/2025 1:59 PM EDT) Amphetamine Screen, Ur Negative Negative LAB CHEMISTRY METHOD 5 2:49 PM EDT [facility] Comment:Certain OTC medicati ons containing ephedrine, phenylephrine, pseudoephedrine and phenylpropanolamine can cause false positive results. Barbiturate Screen, Ur Negative Negative LAB CHEMISTRY METHOD 5 2:49 PM EDT [facility] Benzodiazepine Screen, Ur Negative Negative LAB CHEMISTRY METHOD 5 2:49 PM EDT [facility] Cocaine Screen, Ur Positive(A ) Negative LAB CHEMISTRY METHOD 5 2:49 PM EDT [facility] Opiate Screen, Ur Negative Negative LAB CHEMISTRY METHOD 5 2:49 PM EDT [facility] Cannabinoid (THC) Screen, Ur Positive(A ) Negative LAB CHEMISTRY METHOD 5 2:49 PM EDT [facility] Comment:Specimens from patie nts taking pantoprazole sodium (Protonix) have been shown to produce false positive results. Oxycodone Screen, Ur Negative Negative LAB CHEMISTRY METHOD 2:49 PM EDT [facility] Fentanyl, Ur Negative Negative LAB CHEMISTRY METHOD 2:49 PM EDT [facility] Urine Urine specimen obtained by clean catch procedure / Unknown Non-blood Collection / Unknown 05/01/2025 1:59 PM EDT 05/01/2025 2:19 PM EDT [facility] - 05/01/2025 2:49 PM EDT Assay cutoffs: Amphetamines 1000 ng/mL Barbiturates 200 ng/mL Benzodiazepines 200 ng/mL Cocaine 300 ng/mL Fentanyl 1 ng/mL Opiates 300 ng/mL Oxycodone 100 ng/mL THC 50 ng/mL Semi-quantitative assay for screening purposes only. Unconfirmed screening result should not be used for non-medical purposes. *ALTERNATE METHOD CONFIRMATION DONE UPON REQUEST ONLY* Mel Adame LAB URINE ORDERABLES Final Re sult [facility] [address] [place] [address], * Buprenorphine screen, urine (05/01/2025 1:59 PM EDT) Buprenorphine Screen Urine Negative Negative LAB CHEMISTRY METHOD 05/01/2025 2:49 PM EDT [facility] Urine Urine specimen obtained by clean catch procedure / Unknown Non-blood Collection / Unknown 05/01/2025 1:59 PM EDT 05/01/2025 2:19 PM EDT [facility] - 05/01/2025 2:49 PM EDT Assay cutoff 5 ng/mL Semi-quantitative assay for screening purposes only. Unconfirmed screening result should not be used for non-medical purposes. *ALTERNATE METHOD CONFIRMATION DONE UPON REQUEST ONLY* [facility] LAB URINE ORDERABLES Final Re sult Performing Organization Address City/[facility]/ZIP Co de Phone Number [facility] [address] [place] [address], [place] [phone] * Methadone, urine (05/01/2025 1:59 PM EDT) Methadone Screen, Urine Negative Negative LAB CHEMISTRY METHOD 05/01/2025 2:49 PM EDT [facility] Comment: Assay cutoff 300 ng/mL Semi-quantitative assay for screening purposes only. Unconfirmed screening result should not be used for non-medical purposes. *ALTERNATE METHOD CONFIRMATION DONE UPON REQUEST ONLY* Urine Urine specimen obtained by clean catch procedure / Unknown Non-blood Collection / Unknown 05/01/2025 1:59 PM EDT 05/01/2025 2:19 PM EDT [facility] URINE ORDERABLES Final Re sult Performing Organization Address [facility] de Phone Number [facility] [address] [place] [address], [place] [phone] * Phencyclidine, urine (05/01/2025 1:59 PM EDT) PCP Scrn, Ur Negative Negative LAB CHEMISTRY METHOD 05/01/2025 2:49 PM EDT [facility] Comment: Assay cutoff 25 ng/mL Semi-quantitative assay for screening purposes only. Unconfirmed screening result should not be used for non-medical purposes. *ALTERNATE METHOD CONFIRMATION DONE UPON REQUEST ONLY* Urine Urine specimen obtained by clean catch procedure / Unknown Non-blood Collection / Unknown 05/01/2025 1:59 PM EDT 05/01/2025 2:19 PM EDT [facility] LAB URINE ORDERABLES Final Re sult Performing Organization Address City/[facility]/ZIP Co de Phone Number [facility] [address] [place] [address], [place] [phone] * (ABNORMAL) CBC auto differential (05/01/2025 1:58 PM EDT) [facility] WBC 7.7 4.8 - 10.8 K/mcL LAB HEMETOLOGY METHOD 05/01/2025 2:32 PM EDT [facility] RBC 4.20 3.80 - 4.80 M/mcL LAB HEMETOLOGY METHOD 05/01/2025 2:32 PM EDT [facility] Hemoglobin 11.7 11.5 - 16.0 g/dL LAB HEMETOLOGY METHOD 05/01/2025 2:32 PM EDT [facility] Hematocrit 36.3 35.0 - 47.0 % LAB HEMETOLOGY METHOD 05/01/2025 2:32 PM EDT [facility] MCV 87.3 79.0 - 98.0 FL LAB HEMETOLOGY METHOD 05/01/2025 2:32 PM EDT [facility] MCH 28.1 27.0 - 32.0 pcg LAB HEMETOLOGY METHOD 05/01/2025 2:32 PM EDT [facility] MCHC 32.2 32.0 - 37.0 g/dL LAB HEMETOLOGY METHOD 05/01/2025 2:32 PM EDT [facility] RDW 12.7 11.0 - 15.0 % LAB HEMETOLOGY METHOD 05/01/2025 2:32 PM EDT [facility] Platelets 274 130 - 400 K/mcL LAB HEMETOLOGY METHOD 05/01/2025 2:32 PM EDT [facility] MPV 11.3(H) 7.0 - 11.0 FL LAB HEMETOLOGY METHOD 05/01/2025 2:32 PM EDT [facility] NRBC 0.0 <1.0 % LAB HEMETOLOGY METHOD 05/01/2025 2:32 PM EDT [facility] NRBC Absolute 0.00 <0.10 K/mcL LAB HEMETOLOGY METHOD 05/01/2025 2:32 PM EDT [facility] Neutrophils Relative 71.4 % LAB [facility]EMETOLOGY [facility] Lymphocytes Relative 20.2 % LAB HEMETOLOGY METHOD 05/01/2025 2:32 PM EDT [facility] Monocytes Relative 5.6 % LAB HEMETOLOGY METHOD 05/01/2025 2:32 PM EDT [facility] Eosinophils Relative 1.9 % LAB HEMETOLOGY METHOD 05/01/2025 2:32 PM T [facility] Basophils Relative 0.6 % LAB HEMETOLOGY METHOD 05/01/2025 2:[address] [facility] Immature Granulocytes Relative 0.3 % LAB HEMETOLOGY METHOD 05/01[facility]2025 [facility] Neutrophils Absolute 5.50 1.50 - 7.00 K/mcL LAB HEMETOLOGY METHOD 05/01/2025 2:32 PM EDT [facility] Lymphocytes Absolute 1.56 1.00 - 5.00 K/mcL LAB HEMETOLOGY METHOD 05/01/2025 2:32 PM EDT [facility] Monocytes Absolute 0.43 0.20 - 1.00 K/mcL LAB HEMETOLOGY METHOD 05/01/2025 2:32 PM EDT [facility] Eosinophils Absolute 0.15 0.00 - 0.50 K/mcL LAB HEMETOLOGY METHOD 05/01/2025 [facility] Basophils Absolute 0.05 0.00 - 0.20 K/mcL LAB HEMETOLOGY METHOD 05/01/2025 2:[facility] Immature Granulocytes Absolute 0.02 0.00 - 0.03 K/mcL LAB HEMETOLOGY METHOD 05/01/2025 2:32 PM EDT [facility] Blood Venous blood specimen / Unknown Venipuncture / Unknown 05/01/2025 1:58 PM EDT 05/01/2025 2:19 PM EDT [facility] BLOOD ORDERABLES Final Re sult Performing Organization Address [facility]/[employer] Co de Phone Number [facility] [address] [place] [address], [place] [phone] * Ethanol (05/01/2025 1:58 PM EDT) Ethanol Level 5 0 - 10 mg/dL LAB CHEMISTRY METHOD 05/01/2025 2:57 PM EDT [facility] Blood Venous blood specimen / Unknown Venipuncture / Unknown 05/01/2025 1:58 PM EDT 05/01/2025 2:19 PM EDT [facility] BLOOD ORDERABLES Final Re sult Performing Organization Address [facility] de Phone Number [facility] [address] [place] [address], [place] [phone] * (ABNORMAL) Acetaminophen level (05/01/2025 1:58 PM EDT) Acetaminophen Level <2.0(L) 10.0 - 30.0 mcg/mL LAB CHEMISTRY METHOD 05/01/2025 2:57 PM EDT [facility] Blood Venous blood specimen / Unknown Venipuncture / Unknown 05/01/2025 1:58 PM EDT 05/01/2025 2:19 PM EDT [facility] BLOOD ORDERABLES Final Re sult Performing Organization Address City/[facility]/ZIP Co de Phone Number [facility] [address] [place] [address], [place] [phone] * (ABNORMAL) Salicylate level (05/01/2025 1:58 PM EDT) Pathologist [facility] Salicylate Level <1.7(L) 2.0 - 29.0 mg/dL LAB CHEMISTRY METHOD 05/01/2025 2:57 PM EDT [facility] Blood Venous blood specimen / Unknown Venipuncture / Unknown 05/01/2025 1:58 PM EDT 05/01/2025 2:19 PM EDT us Mel Adame DO LAB BLOOD ORDERABLES Final Re sult [facility] [address] [place] [address], [place] [phone] * (ABNORMAL) Comprehensive metabolic panel (05/01/2025 1:58 PM EDT) [facility] Sodium 145 133 - 145 mmol/L LAB CHEMISTRY METHOD 05/01/2025 2:[address] [facility] Potassium 4.4 3.5 - 5.5 mmol/L LAB CHEMISTRY METHOD 05/01/2025 2:[address] [facility] Chloride 113(H) 96 - 110 mmol/L LAB CHEMISTRY METHOD 05/01/2025 2:[address] [facility] CO2 27 21 - 32 mmol/L LAB CHEMISTRY METHOD 05/01/2025 2:[address] [facility] Anion Gap 5 3 - 11 LAB CHEMISTRY METHOD 05/01/2025 2:[address] [facility] Glucose 109(H) 70 - 100 mg/dL LAB CHEMISTRY METHOD 05/01/2025 2:[address] [facility] BUN 19 5 - 25 mg/dL LAB CHEMISTRY METHOD 05/01/2025 2:57 PM T [facility] Creatinine 0.82 0.50 - 1.10 mg/dL LAB CHEMISTRY METHOD 05/01/2025 2:[address] [facility] eGFR 83 >=60 mL/min/1. 73m2 LAB CHEMISTRY METHOD 05/01/2025 2:[address] [facility] Comment:Calculation based on the Chronic Kidney Disease Epidemiology Collaboration (CKD-EPI) equation refit without adjustment for race. BUN/Creatinine Ratio 23.2 LAB CHEMISTRY METHOD 05/01/2025 2:57 PM T [facility] Calcium 8.8 8.5 - 10.5 mg/dL LAB CHEMISTRY METHOD 05/01/2025 2:[address] [facility] AST (SGOT) 16 10 - 42 unit/L LAB CHEMISTRY METHOD 05/01/2025 2:[address] [facility] ALT (SGPT) 18 10 - 60 unit/L LAB CHEMISTRY METHOD 05/01/2025 2:[address] [facility] Alkaline Phosphatase 71 42 - 121 unit/L LAB CHEMISTRY METHOD 05/01/2025 2:[address] [facility] Total Protein 6.5 6.0 - 8.0 g/dL LAB CHEMISTRY METHOD 05/01/2025 2:[address] [facility] Albumin 3.4 3.2 - 5.0 g/dL LAB CHEMISTRY METHOD 05/01/2025 2:[address] [facility] Total Bilirubin 0.2 0.0 - 1.4 mg/dL LAB CHEMISTRY METHOD 05/01/2025 2:[address] [facility] Blood Venous blood specimen / Unknown Venipuncture / Unknown 05/01/2025 1:58 PM EDT 05/01/2025 2:19 PM EDT us Mel Adame DO LAB BLOOD ORDERABLES Final Re sult [facility] [address] [place] [address], [place] [phone] from Last 3 Months Insurance MEDICAID - [place] Care Teams Account Leader Relationship Specialty Start Date End Date Physician, Pcp Unknown PCP - General 05/01/25
--- OUTSIDE RECORDS SUMMARY | 2025-07-15 08:50 | XMS_ITS | Encounter Summary ---
Author Organization [employer] Address [address] [facility] 7t [place] [address] Care Team Providers Care Retail Presentation Specialist Name Role Phone Skyla Hodge NP Primary Care Provider [phone] Valeria Nugent Unavailable Encounter Details Date Type Department Care Team ([facility] st Contact Info) Description 08/03/2023 Abstract [facility] MEDICINE [address] [place] [address] Skyla Hodge NP [address] [place] [address] Social History Tobacco Use Types Packs/Day Years [...] documented as of this encounter Care Teams Retail Presentation Specialist Relationship Specialty Start Date End Date Skyla Hodge NP [address] [place] [address] PCP - General Family Medicine 07/05/23 Valeria Nugent 05/02/25 05/14/25 Tia Purcell Senior Engineering TechPlastic Sheets Finishing Supervisor 03/20/24 documented as of this encounter
--- OUTSIDE RECORDS SUMMARY | 2025-07-15 08:50 | XMS_ITS | Encounter Summary ---
Author Organization [employer] Address [address] [facility] 7t [place] [address] Care Team Providers Care Strip Mine Supervisor Name Role Phone Skyla Hodge NP Primary Care Provider [phone] Valeria Nugent Unavailable Reason for Visit * Reason Onset Date Comments Med Refill 08/05/2024 Encounter Details Date Type Department Care Team ([facility] st Contact Info) Description 08/05/2024 Refill [facility] MED & PEDS [address] [place] [address] Skyla Hodge NP [address] [place] [address] Social History Tobacco Use Types Packs/Day Years [...] documented as of this encounter Care Teams Strip Mine Supervisor Relationship Specialty Start Date End Date Skyla Hodge NP [address] [place] [address] PCP - General Family Medicine 07/05/23 Valeria Nugent 05/02/25 05/14/25 Tia Purcell Diesel Lube TechPsychiatric Specialist 03/20/24 documented as of this encounter
--- OUTSIDE RECORDS SUMMARY | 2025-07-15 08:50 | XMS_ITS | Encounter Summary ---
Author Organization [employer] Address [address] [facility] 7t [place] [address] Care Team Providers Care Closing Machine Operator Name Role Phone Skyla Hodge NP Primary Care Provider [phone] Valeria Nugent Unavailable Reason for Visit * Reason Onset Date Comments Med Refill 03/18/2025 Encounter Details Date Type Department Care Team (Late st Contact Info) Description 03/18/2025 Refill [facility] MEDICINE [address] [place] [address] Skyal Hodge NP [address] [place] [address] Chronic pain after breast surgery Social History Tobacco Use Types Packs/Day Years [...] as of this encounter Visit Diagnoses Diagnosis Chronic pain after breast surgery documented in this encounter Additional Health Concerns Assessment Noted Time PHQ-9 Depression Total Score: 17 024 3:22 PM EST documented as of this encounter Care Teams Closing Machine Operator Relationship Specialty Start Date End Date Skyla Hodge NP [address] [place] [address] PCP - General Family Medicine 07/05/23 Valeria Nugent 05/02/25 05/14/25 Tia Purcell Track RiderWing Coverer 03/20/24 documented as of this encounter
--- OUTSIDE RECORDS SUMMARY | 2025-07-15 08:50 | XMS_ITS | Encounter Summary ---
Author Organization [employer] Address [address] [facility] 7t [place] [address] Care Team Providers Care Melter Supervisor Electric Arc Furnace Name Role Phone Skyla Hodge NP Primary Care Provider [phone] Valeria Nugent Unavailable Reason for Visit * Reason Onset Date Comments Med Refill 10/28/2024 Encounter Details Date Type Department Care Team ([facility] st Contact Info) Description 10/28/2024 Refill [facility] CHC MED & PEDS [address] [place] [address] Skyla Hodge NP [address] [place], [place] [phone] Sleep disturbance Social History Tobacco Use Types [...] documented as of this encounter Care Teams Melter Supervisor Electric Arc Furnace Relationship Specialty Start Date End Date Skyla Hodge NP [address] [place] [address] PCP - General Family Medicine 07/05/23 Valeria Nugent 05/02/25 05/14/25 Tia Purcell Corset FitterAdult Neurologist 03/20/24 documented as of this encounter
--- OUTSIDE RECORDS SUMMARY | 2025-07-15 08:50 | XMS_ITS | Encounter Summary ---
Author Organization [employer] Address [address] [facility] [address] [place] [address] Care Team Providers Care Digital Advertising Specialist Name Role Phone Skyla Hodge NP Primary Care Provider [phone] Valeria Nugent Unavailable Reason for Visit * Reason Onset Date Comments Med Refill 12/11/2024 Encounter Details Date Type Department Care Team (Late st Contact Info) Description 12/11/2024 Refill [facility] MEDICINE [address] [place] [address] Skyla Hodge NP [address] [place] [address] Social History Tobacco Use Types Packs/Day Years [...] documented as of this encounter Care Teams Digital Advertising Specialist Relationship Specialty Start Date End Date Skyla Hodge NP [address] [place] [address] PCP - General Family Medicine 07/05/23 Valeria Nugent 05/02/25 05/14/25 Tia Purcell Fur PullerGlue Jointer Operator 03/20/24 documented as of this encounter
--- OUTSIDE RECORDS SUMMARY | 2025-07-15 08:50 | XMS_ITS | Encounter Summary ---
Author Organization [employer] Address [address] [facility] [address]t [place] [address] Care Team Providers Care Dispatcher Tow Truck Name Role Phone Skyla Hodge NP Primary Care Provider [phone] Valeria Nugent Unavailable Reason for Visit * Reason Onset Date Comments Med Refill 07/26/2023 Encounter Details Date Type Department Care Team (Late st Contact Info) Description 07/26/2023 Refill [facility] MEDICINE [address] [place] [address] Skyla Hodge NP [address] [place] [address] Anxiety and depression Social History Tobacco Use Types Packs/Day Years [...] as of this encounter Visit Diagnoses Diagnosis Anxiety and depression documented in this encounter Additional Health Concerns Assessment Noted Time PHQ-9 Depression Total Score: 25 023 2:18 PM EST documented as of this encounter Care Teams Dispatcher Tow Truck Relationship Specialty Start Date End Date Skyla Hodge NP [address] [place] [address] PCP - General Family Medicine 07/05/23 Valeria Nugent 05/02/25 05/14/25 Tia Purcell Grinding Room SupervisorTrust And Estates Paralegal 03/20/24 documented as of this encounter
--- OUTSIDE RECORDS SUMMARY | 2025-07-15 08:50 | XMS_ITS | Encounter Summary ---
Author Organization [employer] [facility] Address [address] [place] [address] 7t [place] [address] Care Team Providers Care Science Center Display Builder Name Role Phone Skyla Hodge NP Primary Care Provider [phone] Valeria Nugent Unavailable Encounter Details Date Type Department Care Team (Late st Contact Info) Description 09/13/2022 Abstract [facility] ADULT DENTAL [address] [place] [address] Reese Nicole DDS [address] [place] [address] Social History Tobacco Use Types Packs/Day Years [...] on filedocumented in this encounter Care Teams Science Center Display Builder Relationship Specialty Start Date End Date Skyla Hodge NP [address] [place] [address] PCP - General Family Medicine 07/05/23 Valeria Nugent 05/02/25 05/14/25 Tia Purcell Administrative AccountantPediatric Genetic Counselor 03/20/24 documented as of this encounter
--- OUTSIDE RECORDS SUMMARY | 2025-07-15 08:50 | XMS_ITS | Encounter Summary ---
Author Organization [employer] Address [address] [facility] [address] [place] [address] Care Team Providers Care Paper Box Cutter Name Role Phone Skyla Hodge NP Primary Care Provider [phone] Valeria Nugent Unavailable Reason for Visit * Reason Comments Med Change Request Encounter Details Date Type Department Care Team ([facility] st Contact Info) Description 10/06/2023 Refill [facility] MEDICINE [address] [place] [address] Skyla Hodge NP [address] [place] [address] Gastric reflux Social History Tobacco Use Types Packs/Day Years [...] encounter Miscellaneous Notes * Telephone Encounter - Skyla Hodge NP - 10/06/2023 5:56 PM EDT Approving, but needs appt for additional refills. documented in this encounter Plan of Treatment Not on file documented as of this encounter Visit Diagnoses Diagnosis Gastric reflux Esophageal reflux documented in this encounter Additional Health Concerns Assessment Noted Time PHQ-9 Depression Total Score: 25 023 2:18 PM EST documented as of this encounter Care Teams Paper Box Cutter Relationship Specialty Start Date End Date Skyla Hodge NP [address] [place] [address] PCP - General Family Medicine 07/05/23 Valeria Nugent 05/02/25 05/14/25 Tia Purcell Recreation TeacherRuby Rails Developer 03/20/24 documented as of this encounter
--- OUTSIDE RECORDS SUMMARY | 2025-07-15 08:50 | XMS_ITS | Encounter Summary ---
Author Organization [employer] Address [address] [facility] 7t [place] [address] Care Team Providers Care Bell Captain Name Role Phone Skyla Hodge NP Primary Care Provider [phone] Valeria Nugent Unavailable Reason for Visit * Reason Onset Date Comments Med Refill 11/10/2024 Encounter Details Date Type Department Care Team (Late st Contact Info) Description 11/10/2024 Refill [facility] MEDICINE [address] [place] [address] Skyla Hodge NP [address] [place] [address] Sleep disturbance Social History Tobacco Use Types [...] documented as of this encounter Care Teams Bell Captain Relationship Specialty Start Date End Date Skyla Hodge NP [address] [place] [address] PCP - General Family Medicine 07/05/23 Valeria Nugent 05/02/25 05/14/25 Tia Purcell Community Sports CoordinatorFlash Ranging Crewmember 03/20/24 documented as of this encounter
== END ==
LOC: HO.CARD 08:36
PROVIDERS: PCP Nurse Practitioner; Visit Provider Internal Medicine
DX: R07.2 Precordial pain (principal)
CPT/HCPCS: 93017; 93306

== ENCOUNTER → 2025-07-15 08:39 | Outpatient (BNV) | payer MEDICAID, SELFPAY | PROVIDERS: PCP Nurse Practitioner | DX: R07.2 Precordial pain (principal) | CPT/HCPCS: 93306 ==